=== PATIENT | male | born 1935 | race Caucasian/White ===

== ENCOUNTER → 2020-08-12 11:01 | Outpatient (BNVA) | payer MEDICARE, SELFPAY | PROVIDERS: PCP Internal Medicine; Visit Provider Hospitalist | DX: J44.9 Chronic obstructive pulmonary disease, unspecified (principal); G47.33 Obstructive sleep apnea (adult) (pediatric); J96.10 Chronic respiratory failure, unspecified whether with hypoxia or hypercapnia; Z79.82 Long term (current) use of aspirin; Z87.891 Personal history of nicotine dependence | CPT/HCPCS: 99212 ==

== ENCOUNTER → 2021-03-01 14:10 | Outpatient (BNVA) | payer MEDICARE, SELFPAY | PROVIDERS: PCP Internal Medicine; Visit Provider Hospitalist | DX: G47.33 Obstructive sleep apnea (adult) (pediatric) (principal); I50.9 Heart failure, unspecified; J96.10 Chronic respiratory failure, unspecified whether with hypoxia or hypercapnia; J41.0 Simple chronic bronchitis; Z87.891 Personal history of nicotine dependence; Z88.5 Allergy status to narcotic agent; Z88.8 Allergy status to other drugs, medicaments and biological substances; Z91.041 Radiographic dye allergy status; Z79.84 Long term (current) use of oral hypoglycemic drugs; Z99.89 Dependence on other enabling machines and devices; Z99.81 Dependence on supplemental oxygen; Z79.899 Other long term (current) drug therapy | CPT/HCPCS: 99212 ==

== ENCOUNTER → 2022-03-02 10:55 | Outpatient (BNVA) | payer MEDICARE, SELFPAY | PROVIDERS: PCP Internal Medicine; Visit Provider Hospitalist | DX: J41.0 Simple chronic bronchitis (principal); J96.11 Chronic respiratory failure with hypoxia; G47.33 Obstructive sleep apnea (adult) (pediatric); Z79.899 Other long term (current) drug therapy | CPT/HCPCS: 94618; 99212 ==

== ENCOUNTER → 2022-10-09 11:14 | Outpatient (BNVA) | payer MEDICARE, SELFPAY | PROVIDERS: PCP Internal Medicine; Visit Provider Hospitalist | DX: J96.10 Chronic respiratory failure, unspecified whether with hypoxia or hypercapnia (principal); J41.0 Simple chronic bronchitis; I50.9 Heart failure, unspecified; G47.39 Other sleep apnea; Z87.891 Personal history of nicotine dependence; Z99.81 Dependence on supplemental oxygen | CPT/HCPCS: 99212 ==

== ENCOUNTER → 2023-01-29 15:26 | Outpatient (BNVA) | payer MEDICARE, SELFPAY | PROVIDERS: PCP Internal Medicine; Visit Provider Hospitalist | DX: J96.11 Chronic respiratory failure with hypoxia (principal); J41.0 Simple chronic bronchitis | CPT/HCPCS: 99212 ==

== ENCOUNTER 2023-02-20 08:03 | Outpatient (REF) | payer MEDICARE, SELFPAY ==
--- NOTE | ~2023-02-20 | XR_ITS ---
EXAMINATION: XR SHOULDER, LEFT CLINICAL INFORMATION: Pain in left shoulder COMPARISON: None available. TECHNIQUE: Two views of the left shoulder. FINDINGS: No fracture or dislocation. There are mild degenerative changes in the visualized glenohumeral joint and acromioclavicular joints. Soft tissues unremarkable. Cardiac pacemaker, median sternotomy wires and CABG clips visualized XR/XR shoulder LT min 2V IMPRESSION: Mild degenerative changes in the left shoulder.
== END 2023-02-20 08:04 | disposition home or self-care (01) ==
LOC: HO.HOSX 08:03
PROVIDERS: Visit Provider Orthopaedic Surgery
DX: M75.42 Impingement syndrome of left shoulder (principal)
CPT/HCPCS: 20610; 73030; 99212; J3301

== ENCOUNTER 2023-02-20 13:04 | Outpatient (AMB) | payer MEDICARE, SELFPAY ==
[2023-02-20 13:23] VITALS: BMI 25.1
--- NOTE | 2023-02-20 13:23 | A.OFFVIS_ITS ---
Intake Vital Signs 02/20/23 13:23 Height 5 ft 11 in Weight 180 lb BMI 25.1 Intake Visit Reasons: OV-left should injection Intake Note: Stu 87 year old male presents today as a new patient to re-establish care with Dr. Fischer for an evaluation of left shoulder. Patient reports injection about 3- 4 years ago provided relief until early August 2022. He has intermittent pain that has been getting worse. He would like to discuss repeat of injection. The patient states that he was seen by a shoulder replacement specialist and told that because of his age he is not a candidate for shoulder replacement surgery. He has tried Tylenol and anti-inflammatory medicines which gave him minimal relief. He has also done physical therapy which aggravated his pain. Allergies codeine Allergy (Severe, Verified 02/20/23 13:31) Shakes morphine Allergy (Severe, Verified 02/20/23 13:31) Shakes tetracycline Allergy (Severe, Verified 02/20/23 13:31) Hallucinations Contrast Dye Allergy (Severe, Uncoded 02/20/23 13:31) Itching Erythromycin Allergy (Severe, Uncoded 02/20/23 13:31) Rash and Hives Medication List - Last Reconciled 02/20/23 by Raymond Fischer MD ascorbic acid (vitamin C) mg PO aspirin 81 mg PO DAILY atorvastatin 80 mg PO DAILY Breo Ellipta 100-25 mcg/dose (fluticasone furoate-vilanterol) 1 ea inhalation DAILY NS carvedilol 25 mg PO BID cholecalciferol (vitamin D3) 25 mcg PO DAILY coenzyme Q10 10 mg PO TID cyanocobalamin (vitamin B-12) 2,500 mcg PO DAILY dapagliflozin propanediol (Farxiga) 10 mg PO DAILY fluticasone propionate 50 mcg/actuation 0 mcg intranasal folic acid 1 mg PO DAILY gabapentin mg PO ketoconazole 2% 1 appl topical 2XW loratadine 10 mg PO DAILY 90 days metformin 500 mg PO DAILY montelukast 10 mg PO QPM naltrexone 50 mg PO DAILY nitroglycerin mg sublingual omega-3 fatty acids (Fish Oil Concentrate) 1,000 mg PO DAILY potassium chloride ER 10 mEq PO DAILY rivaroxaban (Xarelto) 20 mg PO DAILY sacubitril-valsartan 49-51 mg (Entresto) 1 tab PO BID spironolactone 25 mg PO DAILY sulfasalazine PO torsemide 20 mg PO BID PFSH Medical History Chronic respiratory failure COPD (chronic obstructive pulmonary disease) COVID-19 ARLEEN treated with BiPAP Social History Patient Tobacco Use Status: Former Tobacco user Tobacco use type: Cigarette Years Smoked: 25 years ago Physical Exam Vital Signs: BMI result Body Mass Index 25.1 Const Other: Well-nourished well-developed very friendly male awake alert and oriented x3 in no acute distress Extrem Other: Bilateral upper extremity examination shows good capillary refill, no skin l esions noted, normal sensation light touch Left shoulder examination shows slightly decreased range of motion when compared to his right shoulder, 3/5 strength with supraspinatus testing, positive imp ingement signs, no instability Office Procedures Joint Injection/Drain Joint Injection/Drain Primary Site: left shoulder Prep: site was prepped using aseptic technique Injected: 40 mg of, Kenalog and 1% plain lidocaine Procedure: The patient tolerated the procedure well Coding 44147 - Large joint Procedure code (CPT) selection complete Results Reviewed Results Reviewed: 02/20/23 13:49 Lidocaine HCl 2 % MPF [Xylocaine 2 % MPF] 5 ml .ROUTE .STK-MED ONE Triamcinolone Acetonide [Kenalog-40] 40 mg .ROUTE .STK-MED ONE X-rays of the patient's left shoulder taken today show severe acromioclavicular joint narrowing, a type 2 acromion, no acute bony abnormalities. Assessment & Plan Assessment & Plan (1) Impingement syndrome of left shoulder: Code(s): M75.42 - Impingement syndrome of left shoulder Plan: Mr. Carranza presents with left shoulder pain and weakness due to impingement syndrome and chronic rotator cuff tearing. I had a lengthy discussion with the patient regarding the treatment options. The risks and benefits of a left shoulder cortisone injection were discussed at length with the patient. The patient wished to proceed. He tolerated the left shoulder injection well. He will continue with his range of motion exercises to prevent stiffness. The do's and don'ts of lifting were discussed at length with the patient. He will follow up with me on an as-needed basis should his symptoms not plateau at an unacceptable level over the next few months. Feel free to call me at any time should questions regarding his orthopedic management arise. Thank you very much for asking me to see this very friendly gentleman. I spent 22 minutes in reviewing the patient's records and imaging studies, seeing the patient and documenting in the medical record. Orders: Orders XR shoulder LT min 2V Today M25.512 - Pain in left shoulder AMB Joint Injection/Aspiration Today M75.42 - Impingement syndrome of left shoulder Coding Level of Care Code Est Pt Level 2 (07386) Diagnoses Impingement syndrome of left shoulder M75.42 CPT Codes Coding - 95779 Large joint: 79661 - Large joint ([id number])
== END 2023-02-20 14:10 | disposition home or self-care (01) ==
PROVIDERS: PCP Internal Medicine; Visit Provider Orthopaedic Surgery
DX: M75.42 Impingement syndrome of left shoulder (principal)
CPT/HCPCS: 20610; 99214

== ENCOUNTER 2023-04-17 11:15 | Outpatient (AMB) | payer MEDICARE, SELFPAY ==
--- NOTE | 2023-04-17 11:22 | A.OFFVIS_ITS ---
Intake Vital Signs 04/17/23 11:23 Height 5 ft 11 in Weight 185 lb BMI 25.8 Pulse 92 Pulse Source Pulse Oximeter Pulse Oximetry (%) 96 Oxygen Delivery Method Room Air Intake Visit Reasons: COPD Telehealth Director Required: No Allergies codeine Allergy (Severe, Verified 04/17/23 11:26) Shakes morphine Allergy (Severe, Verified 04/17/23 11:26) Shakes tetracycline Allergy (Severe, Verified 04/17/23 11:26) Hallucinations Contrast Dye Allergy (Severe, Uncoded 04/17/23 11:26) Itching Erythromycin Allergy (Severe, Uncoded 04/17/23 11:26) Rash and Hives HPI HPI Comments History of Present Illness Details The patient is a 87-year-old gentleman known congestive heart failure and also complex sleep apnea. He has been responding well to the oxygen. He feels much improved now with decreased shortness of breath with activity. He also had pulmonary function studies recently that we reviewed in the office. It appears the patient does not have any obstructive nor restrictive ventilatory defect, although, he has an isolated moderate diffusion impairment. This is likely related to his underlying pulmonary vascular disease. The patient does have evidence of chronic bronchitis with significant mucus production. I do feel that he will do well on inhaled cortical steroid at this time. He is also scheduled to undergo a sleep study to further address his issues with complex sleep apnea. It did demonstrate that he has severe complex sleep apnea. The recommendation was for him to start BiPAP therapy. 03/02/2022 the patient is here for a pulmonary follow-up visit. He has noticed increasing dyspnea on exertion. Moderate severity. Typically with activity. He does uses rescue inhaler multiple times a day because of the shortness of breath. He continues with respiratory therapy. During the office visit we did taken for 6 minute walk test. The patient did desaturate down to 88% only after a few minutes. He was placed on a conserving device initially on 2 L pulse maintain a pulse ox of 90% and on 3 L pulse to maintain a pulse ox of 93%. The patient needs portable oxygen. Will make sure to request this from the [employer]. He already uses oxygen at nighttime. 04/17/2023 the patient is here for a pulmonary follow-up visit. Overall the patient is doing better. The Breo inhaler has been helping. Does not use it regularly. In addition to this he feels significant improvement using the oxygen. The oxygen therapy has been affecting beneficial. And is treating his underlying respiratory failure due to his COPD. The patient does have small tanks that he can take with him when he is going outside of the home for better portability. In addition to that he does have a concentrator in the home that uses specially with activity and also with sleep. Therefore he is to continue to use the oxygen as prescribed. Denies any chest discomfort or cough. Will no need for any additional testing at this time. Will plan to follow-up in 6 months. However, if he develops any new or concerning symptoms prior to that he is to call the office immediately for an earlier evaluation. [facility] Medical History Chronic respiratory failure COPD (chronic obstructive pulmonary disease) COVID-19 ARLEEN treated with BiPAP Social History Patient Tobacco Use Status: Former Tobacco user Tobacco use type: Cigarette Years Smoked: 25 years ago Review of Systems Const Denies fever(s) and Denies night sweats ENT Denies change in voice, Denies lip swelling, Denies mouth pain, Reports nasal congestion, Reports nasal discharge and Denies tongue swelling Card Denies chest pain and Reports dyspnea on exertion Resp Reports cough and Reports dyspnea on exertion GI Denies abdominal pain Musc Denies no additional complaints and Reports abnormal gait Neuro Reports abnormal gait and Reports burning sensations Psych Denies no additional complaints Meir/Lymph Denies easy bleeding and Denies lymphadenopathy Aller/Immun Denies lip swelling and Denies tongue swelling Physical Exam Vital Signs: Last Vital Signs Pulse 92 04/17/23 11:23 Pulse Ox 96 04/17/23 11:23 Oxygen Delivery Method Room Air 04/17/23 11:23 BMI result Body Mass Index 25.8 Const General: alert Neck Neck: Yes normal visual inspection, Yes full ROM and Yes no lymphadenopathy Chest Chest palpation & inspection: normal inspection of the chest Resp Auscultation: diminished lung sounds Cardio Rate: regular rate Rhythm: regular rhythm Heart sounds: S1 normal heart sound present and S2 normal heart sound present GI Palpation (GI): Soft to palpation and nontender Auscultation: normal bowel sounds Skin General skin exam: rashes and/or lesions noted Assessment & Plan Assessment & Plan (1) Chronic respiratory failure: Code(s): J96.10 - Chronic respiratory failure, unspecified whether with hypoxia or hypercapnia Qualifiers: Respiratory failure complication: hypoxia Qualified Code(s): J96.11 - Chronic respiratory failure with hypoxia (2) COPD (chronic obstructive pulmonary disease): Code(s): J44.9 - Chronic obstructive pulmonary disease, unspecified Qualifiers: COPD type: chronic bronchitis Chronic bronchitis type: simple Qualified Code(s): J41.0 - Simple chronic bronchitis Plan Continue Breo daily continue Loratidine/Singulair continue oxygen with activity and also with sleep. The oxygen therapy has been effective and beneficial. CXR Follow-up in 8-12 months or sooner if worsening symptoms develop Coding Level of Care Code Est Pt Level 4 (32693) Diagnoses Chronic respiratory failure J96.11 Respiratory failure complication: hypoxia COPD (chronic obstructive pulmonary disease) J41.0 COPD type: chronic bronchitis Chronic bronchitis type: simple Time Spent (min) 17
[2023-04-17 11:23] VITALS: PULSE 92; O2SAT 96; BMI 25.8
== END 2023-04-17 11:45 | disposition home or self-care (01) ==
PROVIDERS: PCP Internal Medicine; Visit Provider Hospitalist
DX: J96.11 Chronic respiratory failure with hypoxia (principal); J41.0 Simple chronic bronchitis
CPT/HCPCS: 99214

== ENCOUNTER → 2023-04-17 11:15 | Outpatient (BNVA) | payer MEDICARE, SELFPAY | PROVIDERS: PCP Internal Medicine; Visit Provider Hospitalist | DX: J41.0 Simple chronic bronchitis (principal); J96.11 Chronic respiratory failure with hypoxia; Z79.899 Other long term (current) drug therapy | CPT/HCPCS: 99212 ==

== ENCOUNTER 2023-05-24 13:17 | Outpatient (AMB) | payer MEDICARE, SELFPAY ==
--- NOTE | 2023-05-24 13:29 | MHC.OFFVIS ---
Intake Vital Signs 05/24/23 13:32 Height 5 ft 11 in Weight 185 lb BMI 25.8 Intake Visit Reasons: OV-left should injection-last injection 02/20/23 Intake Note: Stu 88 yr old male presents today with complaints of bilateral shoulder pains. He describes his pains as achy in nature. Most of the pain is along the lateral aspects of his shoulders. He also reports chronic weakness in his shoulders. The patient wishes to hold off on total shoulder replacement surgery for as long as possible. He has tried Tylenol and anti-inflammatory medicines which gave him minimal relief. Allergies codeine Allergy (Severe, Verified 05/24/23 13:33) Shakes morphine Allergy (Severe, Verified 05/24/23 13:33) Shakes tetracycline Allergy (Severe, Verified 05/24/23 13:33) Hallucinations Contrast Dye Allergy (Severe, Uncoded 05/24/23 13:33) Itching Erythromycin Allergy (Severe, Uncoded 05/24/23 13:33) Rash and Hives PFS Medical History Chronic respiratory failure COPD (chronic obstructive pulmonary disease) COVID-19 ARLEEN treated with BiPAP Social History Patient Tobacco Use Status: Former Tobacco user Tobacco use type: Cigarette Years Smoked: 25 years ago Physical Exam Vital Signs: BMI result Body Mass Index 25.8 Const Other: Well-nourished well-developed very friendly male awake alert and oriented x3 in no acute distress Extrem Other: Bilateral upper extremity examination shows good capillary refill, no skin lesions noted, normal sensation light touch Bilateral shoulder examination shows forward flexion to 160 degrees, external rotation 40 degrees, internal rotation to his back pockets, 3/5 strength with supraspinatus testing, positive impingement signs, no instability Office Procedures Joint Injection/Drain Joint Injection/Drain Primary Site: left shoulder Prep: site was prepped using aseptic technique Injected: 40 mg of, Kenalog and 1% plain lidocaine Procedure: The patient tolerated the procedure well Coding 57641 - Large joint Procedure code (CPT) selection complete Joint Injection/Drain Joint Injection/Drain Primary Site: right shoulder Prep: site was prepped using aseptic technique Injected: 40 mg of, Kenalog and 1% plain lidocaine Procedure: The patient tolerated the procedure well Coding 93190 - Large joint Procedure code (CPT) selection complete Results Reviewed Results Reviewed: 05/24/23 13:19 Lidocaine HCl 2 % MPF [Xylocaine 2 % MPF] 5 ml .ROUTE .STK-MED ONE Triamcinolone Acetonide [Kenalog-40] 40 mg .ROUTE .STK-MED ONE 05/24/23 13:22 Lidocaine HCl 2 % MPF [Xylocaine 2 % MPF] 5 ml .ROUTE .STK-MED ONE 05/24/23 13:23 Triamcinolone Acetonide [Kenalog-40] 40 mg .ROUTE .STK-MED ONE Assessment & Plan Assessment & Plan (1) Impingement syndrome of left shoulder: Code(s): M75.42 - Impingement syndrome of left shoulder Plan: Mr. Carranza presents with bilateral shoulder pains and weakness due to impingement syndrome and chronic rotator cuff tearing. I had a lengthy discussion with the patient regarding the treatment options. If he wishes to hold off on surgery for as long as possible. I agree with this plan. The risks and benefits of bilateral shoulder cortisone injections were discussed at length with the patient. The patient wished to proceed. He tolerated the injections well. He will continue with his home stretching program to prevent stiffness. He will follow up with me on an as-needed basis should his symptoms not plateau at an unacceptable level over the next few months. Feel free to call me at any time should questions regarding his orthopedic management arise. I spent 22 minutes in reviewing the patient's records and imaging studies, seeing the patient and documenting in the medical record. (2) Impingement of right shoulder: Code(s): M25.811 - Other specified joint disorders, right shoulder Orders: Orders AMB Joint Injection/Aspiration Today M75.42 - Impingement syndrome of left shoulder AMB Joint Injection/Aspiration Today M25.811 - Other specified joint disorders, right shoulder Coding Level of Care Code Est Pt Level 2 (56107) Diagnoses Impingement syndrome of left shoulder M75.42 Impingement of right shoulder M25.811 CPT Codes Coding - Large joint: 34129 - Large joint ([id number]) Coding - Large joint: 35775 - Large joint ([id number])
[2023-05-24 13:32] VITALS: BMI 25.8
== END 2023-05-24 13:42 | disposition home or self-care (01) ==
PROVIDERS: PCP Internal Medicine; Visit Provider Orthopaedic Surgery
DX: M75.42 Impingement syndrome of left shoulder (principal); M25.811 Other specified joint disorders, right shoulder
CPT/HCPCS: 20610; 99213

== ENCOUNTER → 2023-05-24 13:17 | Outpatient (BNVA) | payer MEDICARE, SELFPAY | PROVIDERS: PCP Internal Medicine; Visit Provider Orthopaedic Surgery | DX: M75.42 Impingement syndrome of left shoulder (principal); M25.811 Other specified joint disorders, right shoulder | CPT/HCPCS: 20610; 99212; J3301 ==

== ENCOUNTER 2023-08-23 11:22 | Outpatient (AMB) | payer MEDICARE, SELFPAY ==
[2023-08-23 11:23] VITALS: BMI 25.8
--- NOTE | 2023-08-23 11:23 | A.OFFVIS_ITS ---
Intake Vital Signs 08/23/23 11:23 Height 5 ft 11 in Weight 185 lb BMI 25.8 Intake Visit Reasons: OV-left should injection-last injection 05/24/23 Intake Note: Stu is a 88 year old Male who presents for a follow up after an injections bilateral shoulder. He states that he got temporary relief from the injections. The injections have worn off. He describes his pains as achy in nature. He denies any fevers or chills. He continues with his range of motion exercises. He would like to hold off on shoulder replacement surgery for as long as possible. Allergies codeine Allergy (Severe, Verified 08/23/23 11:24) Shakes morphine Allergy (Severe, Verified 08/23/23 11:24) Shakes tetracycline Allergy (Severe, Verified 08/23/23 11:24) Hallucinations Contrast Dye Allergy (Severe, Uncoded 05/24/23 13:33) Itching Erythromycin Allergy (Severe, Uncoded 05/24/23 13:33) Rash and Hives [facility] Medical History Chronic respiratory failure ARLEEN treated with BiPAP COVID-19 COPD (chronic obstructive pulmonary disease) Social History Patient Tobacco Use Status: Former Tobacco user Tobacco use type: Cigarette Years Smoked: 25 years ago Physical Exam Vital Signs: BMI result Body Mass Index 25.8 Const Other: Well-nourished well-developed very friendly male awake alert and oriented x3 in no acute distress Extrem Other: Bilateral upper extremity examination shows good capillary refill, no skin lesions noted, normal sensation light touch Bilateral shoulder examination shows forward flexion to 160 degrees, external rotation to 40 degrees, internal rotation to his back pocket, 3/5 strength with supraspinatus testing, positive impingement signs, no instability Office Procedures Joint Injection/Drain Joint Injection/Drain Primary Site: left shoulder Prep: site was prepped using aseptic technique Injected: 40 mg of, DepoMedrol and 1% plain lidocaine Procedure: The patient tolerated the procedure well Coding 10425 - Large joint Procedure code (CPT) selection complete Joint Injection/Drain Joint Injection/Drain Primary Site: right shoulder Prep: site was prepped using aseptic technique Injected: 40 mg of, DepoMedrol and 1% plain lidocaine Procedure: The patient tolerated the procedure well Coding 43865 - Large joint Procedure code (CPT) selection complete Assessment & Plan Assessment & Plan (1) Impingement syndrome of left shoulder: Code(s): M75.42 - Impingement syndrome of left shoulder (2) Impingement of right shoulder: Code(s): M25.811 - Other specified joint disorders, right shoulder Plan Mr. Carranza presents with bilateral shoulder pains and weakness due to chronic rotator cuff tears. I had a lengthy discussion with the patient regarding the treatment options. The risks and benefits of bilateral shoulder cortisone injections were discussed at length with the patient. The patient wished to proceed. Tolerated the injections well. He will continue with his home stretching program to prevent stiffness. The patient also has chronic low back pain. He is not able to get an MRI because he has a pacemaker. I did refer him to the pain management group here at [facility]. He will contact me prior to his follow-up appointment in 3 months should any questions or concerns arise. Feel free to call me at any time should questions regarding his orthopedic management arise. I spent 22 minutes in reviewing the patient's records and imaging studies, seeing the patient and documenting in the medical record. Orders: Orders AMB Joint Injection/Aspiration Today M75.42 - Impingement syndrome of left shoulder AMB Joint Injection/Aspiration Today M25.811 - Other specified joint disorders, right shoulder Referrals Pain Management Referral M54.50 - Low back pain, unspecified Coding Level of Care Code Est Pt Level 2 (53374) Diagnoses Impingement syndrome of left shoulder M75.42 Impingement of right shoulder M25.811 CPT Codes Coding - 21797 Large joint: 17976 - Large joint ([id number]) Coding - 93450 Large joint: 92363 - Large joint ([id number])
== END 2023-08-23 12:26 | disposition home or self-care (01) ==
PROVIDERS: PCP Internal Medicine; Visit Provider Orthopaedic Surgery
DX: M75.42 Impingement syndrome of left shoulder (principal); M25.811 Other specified joint disorders, right shoulder
CPT/HCPCS: 20610

== ENCOUNTER → 2023-08-23 11:22 | Outpatient (BNVA) | payer MEDICARE, SELFPAY | PROVIDERS: PCP Internal Medicine; Visit Provider Orthopaedic Surgery | DX: M75.42 Impingement syndrome of left shoulder (principal); M25.811 Other specified joint disorders, right shoulder | CPT/HCPCS: 20610; J1020 ==

== ENCOUNTER 2023-10-08 09:37 | Outpatient (AMB) | payer MEDICARE, SELFPAY ==
--- NOTE | 2023-10-08 09:41 | MHC.OFFVIS ---
Intake Vital Signs 10/08/23 10:09 Height 5 ft 11 in Weight 185 lb BMI 25.8 BP 168/88 H Blood Pressure Location Lt brachial Position Sitting Respiration 12 Pulse 82 Pulse Source Pulse Oximeter Pulse Oximetry (%) 96 Oxygen Delivery Method Room Air Intake Visit Reasons: Low Back Pain, Unspecified/lvm Allergies codeine Allergy (Severe, Verified 10/08/23 10:11) Shakes morphine Allergy (Severe, Verified 10/08/23 10:11) Shakes tetracycline Allergy (Severe, Verified 10/08/23 10:11) Hallucinations Contrast Dye Allergy (Severe, Uncoded 10/08/23 10:11) Itching Erythromycin Allergy (Severe, Uncoded 10/08/23 10:11) Rash and Hives Medication List - Last Reconciled 10/08/23 by Emilie Hewitt LPN ascorbic acid (vitamin C) mg PO aspirin 81 mg PO DAILY atorvastatin 80 mg PO DAILY Breo Ellipta 100-25 mcg/dose (fluticasone furoate-vilanterol) 1 ea inhalation DAILY NS carvedilol 25 mg PO BID cholecalciferol (vitamin D3) 25 mcg PO DAILY coenzyme Q10 10 mg PO TID cyanocobalamin (vitamin B-12) 2,500 mcg PO DAILY dapagliflozin propanediol (Farxiga) 10 mg PO DAILY gabapentin 300 mg PO Q8H ketoconazole 2% 1 appl topical 2XW naltrexone 50 mg PO DAILY nitroglycerin mg sublingual omega-3 fatty acids (Fish Oil Concentrate) 1,000 mg PO DAILY potassium chloride ER 10 mEq PO DAILY rivaroxaban (Xarelto) 20 mg PO DAILY sacubitril-valsartan 49-51 mg (Entresto) 1 tab PO BID spironolactone 25 mg PO DAILY sulfasalazine 0.5 grams PO DAILY torsemide 20 mg PO BID HPI Low Back Pain, Unspecified/lvm HPI Details 88-year-old male who presents today to the office for an evaluation of back pain. He was referred by Dr. Fischer for back and leg pain that started about two years ago, and the pain has been going on for about three years. He attributes the symptoms to an old injury to his lower back, as well as diabetic neuropathy and burning symptoms in the feet. He states that his left leg is worse than right side. The pain is described as 9?10/10 in intensity. The pain symptoms are worse in the morning and afternoon, when they are about 10/10 in intensity. It is an aching, burning sensation in this lower back and a numbing burning sensation in the bilateral feet. He denies any neck pain or weakness in his hand or leg. He has been experiencing a loss of balance issue during ambulation. He has been using a walker. He is unable to sleep normally or do his daily activities. The symptoms have been progressively worsening. He has exhausted physical therapy, chiropractic manipulation, and acupuncture, as well as preferable and homeopathic supplements. He has been taking like 3?4 tablets of gabapentin every day. He denies any history of back surgery in the past. He has been receiving cortisone shot for his shoulder pain. 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 He has a ?woody feeling? in his left foot and feels like he has to drag it in the morning when he first gets up. He had a pacemaker placed in 2009 as well as cardiac stents, followed by a CABG in 2018. He is retired. [facility] Medical History Chronic respiratory failure ARLEEN treated with BiPAP COVID-19 COPD (chronic obstructive pulmonary disease) Social History Patient Tobacco Use Status: Former Tobacco user Tobacco use type: Cigarette Years Smoked: 25 years ago Review of Systems Const All systems reviewed & are unremarkable except as noted in HPI and below Physical Exam Vital Signs: Last Vital Signs Pulse 82 10/08/23 10:09 Resp 12 10/08/23 10:09 BP 168/88 H 10/08/23 10:09 Pulse Ox 96 10/08/23 10:09 Oxygen Delivery Method Room Air 10/08/23 10:09 BMI result Body Mass Index 25.8 General: Appears afebrile. Alert and oriented. Mood and affect appropriate. Follows and participates in conversation appropriately. Respiratory effort is unlabored. Able to transition from sit to stand unassisted. Ambulates with bilaterally normal heel strike and toe off. There is no cracks or ulcers skin on his bilateral feet. He is unsteady on his legs when he stands on his toes. Subjective weakness in arms against resistance. Results Reviewed Results Reviewed: No imaging is available for review. Assessment & Plan Assessment & Plan (1) Lumbar spinal stenosis: Code(s): M48.061 - Spinal stenosis, lumbar region without neurogenic claudication (2) Low back pain: Code(s): M54.50 - Low back pain, unspecified Plan We discussed starting with topical Qutenza patches for his leg pain secondary to diabetic neuropathy prior to trying any surgical interventions. The patient is in agreement with this plan. Informed the patient that insurance approval is required. We will file a PA for approval and keep him updated. Once we get the approval, we will schedule the appointment. For the arm and leg weakness as well as back pain, I ordered CT scans of the cervical and lumbar spines for further evaluation. If his images show severe spinal stenosis, we can consider surgical decompression. Patient is unable to get MRI scan due to pacemaker presence. Scribed for Dr. Ayala by Perry Franz, biomedical scientist, on 10/08/2023. I, Dr. Ayala, have personally reviewed and agree with the information entered by the scribe. Orders: Orders CT lumbar spine wo IV con 10/08/23 M48.061 - Spinal stenosis, lumbar region without neurogenic claudication, M54.50 - Low back pain, unspecified CT cervical spine wo IV con 10/08/23 M48.02 - Spinal stenosis, cervical region Coding Level of Care Code New Pt Level 4 (05077) Diagnoses Lumbar spinal stenosis M48.061 Low back pain M54.50
[2023-10-08 10:09] VITALS: BP 168/88; PULSE 82; RESP 12; O2SAT 96; BMI 25.8
== END 2023-10-08 10:38 | disposition home or self-care (01) ==
PROVIDERS: PCP Internal Medicine; Referring Provider Orthopaedic Surgery; Visit Provider Internal Medicine
DX: M48.061 Spinal stenosis, lumbar region without neurogenic claudication (principal); M54.50 Low back pain, unspecified
CPT/HCPCS: 99204

== ENCOUNTER → 2023-10-08 09:37 | Outpatient (BNVA) | payer MEDICARE, SELFPAY | PROVIDERS: PCP Internal Medicine; Visit Provider Internal Medicine | DX: M48.061 Spinal stenosis, lumbar region without neurogenic claudication (principal); M54.50 Low back pain, unspecified | CPT/HCPCS: 99202 ==

== ENCOUNTER 2023-10-16 15:15 | Outpatient (AMB) | payer MEDICARE, SELFPAY ==
[2023-10-16 15:21] VITALS: PULSE 92; O2SAT 97; BMI 25.4
--- NOTE | 2023-10-16 15:21 | A.OFFVIS_ITS ---
Intake Vital Signs 10/16/23 15:21 Height 5 ft 11 in Weight 182 lb BMI 25.4 Pulse 92 Pulse Source Pulse Oximeter Pulse Oximetry (%) 97 Oxygen Delivery Method Room Air Intake Visit Reasons: Needs same day chest x ray [employer] Worker Required: No Allergies codeine Allergy (Severe, Verified 10/16/23 15:23) Shakes morphine Allergy (Severe, Verified 10/16/23 15:23) Shakes tetracycline Allergy (Severe, Verified 10/16/23 15:23) Hallucinations Contrast Dye Allergy (Severe, Uncoded 10/16/23 15:23) Itching Erythromycin Allergy (Severe, Uncoded 10/16/23 15:23) Rash and Hives HPI HPI Comments History of Present Illness Details The patient is a 88-year-old gentleman known congestive heart failure and also complex sleep apnea. He has been responding well to the oxygen. He feels much improved now with decreased shortness of breath with activity. He also had pulmonary function studies recently that we reviewed in the office. It appears the patient does not have any obstructive nor restrictive ventilatory defect, although, he has an isolated moderate diffusion impairment. This is likely related to his underlying pulmonary vascular disease. The patient does have evidence of chronic bronchitis with significant mucus production. I do feel that he will do well on inhaled cortical steroid at this time. He is also scheduled to undergo a sleep study to further address his issues with complex sleep apnea. It did demonstrate that he has severe complex sleep apnea. The recommendation was for him to start BiPAP therapy. 03/02/2022 the patient is here for a pulmonary follow-up visit. He has noticed increasing dyspnea on exertion. Moderate severity. Typically with activity. He does uses rescue inhaler multiple times a day because of the shortness of breath. He continues with respiratory therapy. During the office visit we did taken for 6 minute walk test. The patient did desaturate down to 88% only after a few minutes. He was placed on a conserving device initially on 2 L pulse maintain a pulse ox of 90% and on 3 L pulse to maintain a pulse ox of 93%. The patient needs portable oxygen. Will make sure to request this from the [employer]. He already uses oxygen at nighttime. 10/17/2023 the patient is here for a pulmonary follow-up visit. Overall the patient is doing better. The Breo inhaler has been helping. Does not use it regularly. In addition to this he feels significant improvement using the oxygen. The oxygen therapy has been affecting beneficial. And is treating his underlying respiratory failure due to his COPD. The patient does have small tanks that he can take with him when he is going outside of the home for better portability. In addition to that he does have a concentrator in the home that uses specially with activity and also with sleep. Therefore he is to continue to use the oxygen as prescribed. Denies any chest discomfort or cough. Will no need for any additional testing at this time. Will plan to follow-up in 6 months. However, if he develops any new or concerning symptoms prior to that he is to call the office immediately for an earlier evaluation. [facility] Medical History Chronic respiratory failure ARLEEN treated with BiPAP COVID-19 COPD (chronic obstructive pulmonary disease) Social History Patient Tobacco Use Status: Former Tobacco user Tobacco use type: Cigarette Years Smoked: 25 years ago Review of Systems Const Denies fever(s) and Denies night sweats ENT Denies change in voice, Denies lip swelling, Denies mouth pain, Reports nasal congestion, Reports nasal discharge and Denies tongue swelling Card Denies chest pain and Reports dyspnea on exertion Resp Reports cough and Reports dyspnea on exertion GI Denies abdominal pain Musc Denies no additional complaints and Reports abnormal gait Neuro Reports abnormal gait and Reports burning sensations Psych Denies no additional complaints Meir/Lymph Denies easy bleeding and Denies lymphadenopathy Aller/Immun Denies lip swelling and Denies tongue swelling Physical Exam Vital Signs: Last Vital Signs Pulse 92 10/16/23 15:21 Pulse Ox 97 10/16/23 15:21 Oxygen Delivery Method Room Air 10/16/23 15:21 BMI result Body Mass Index 25.4 Const General: alert Neck Neck: Yes normal visual inspection, Yes full ROM and Yes no lymphadenopathy Chest Chest palpation & inspection: normal inspection of the chest Resp Auscultation: diminished lung sounds Cardio Rate: regular rate Rhythm: regular rhythm Heart sounds: S1 normal heart sound present and S2 normal heart sound present GI Palpation (GI): Soft to palpation and nontender Auscultation: normal bowel sounds Skin General skin exam: rashes and/or lesions noted Assessment & Plan Assessment & Plan (1) Chronic respiratory failure: Code(s): J96.10 - Chronic respiratory failure, unspecified whether with hypoxia or hypercapnia Qualifiers: Respiratory failure complication: hypoxia Qualified Code(s): J96.11 - Chronic respiratory failure with hypoxia (2) COPD (chronic obstructive pulmonary disease): Code(s): J44.9 - Chronic obstructive pulmonary disease, unspecified Qualifiers: COPD type: chronic bronchitis Chronic bronchitis type: simple Qualified Code(s): J41.0 - Simple chronic bronchitis Plan Continue Breo daily continue Loratidine/Singulair continue oxygen with activity and also with sleep. The oxygen therapy has been effective and beneficial. CXR Follow-up in 8-12 months or sooner if worsening symptoms develop Orders: Orders XR chest 2V 10/16/23 J44.9 - Chronic obstructive pulmonary disease, unspecified Coding Level of Care Code Est Pt Level 4 (50954) Diagnoses Chronic respiratory failure with hypoxia J96.11 Respiratory failure complication: hypoxia Simple chronic bronchitis J41.0 COPD type: chronic bronchitis Chronic bronchitis type: simple Time Spent (min) 17
== END 2023-10-16 15:46 | disposition home or self-care (01) ==
PROVIDERS: PCP Internal Medicine; Visit Provider Hospitalist
DX: J96.11 Chronic respiratory failure with hypoxia (principal); J41.0 Simple chronic bronchitis
CPT/HCPCS: 99214

== ENCOUNTER → 2023-10-16 15:15 | Outpatient (BNVA) | payer MEDICARE, SELFPAY | PROVIDERS: PCP Internal Medicine; Visit Provider Hospitalist | DX: J96.11 Chronic respiratory failure with hypoxia (principal); J41.0 Simple chronic bronchitis | CPT/HCPCS: 99212 ==

== ENCOUNTER 2023-11-22 11:03 | Outpatient (AMB) | payer MEDICARE, SELFPAY ==
[2023-11-22 11:31] VITALS: BMI 25.4
--- NOTE | 2023-11-22 11:31 | MHC.OFFVIS ---
Intake Vital Signs 11/22/23 11:31 Height 5 ft 11 in Weight 182 lb BMI 25.4 Intake Visit Reasons: OV-left should INJ 08/23/23 Intake Note: Stu is a 88 year old male who presents for a follow up of bilateral shoulder injections done on 08/23/2023. Patient reports his injections gave him good relief. His pains have returned. He describes his pains as sharp in nature. Most of the pain is along the lateral aspects of his shoulders. He has tried Tylenol and anti-inflammatory medicines which gave him minimal relief. He has also done physical therapy exercises which aggravated his pain. He wishes to hold off on surgery for as long as possible. Allergies codeine Allergy (Severe, Verified 11/22/23 11:35) Shakes morphine Allergy (Severe, Verified 11/22/23 11:35) Shakes tetracycline Allergy (Severe, Verified 11/22/23 11:35) Hallucinations Contrast Dye Allergy (Severe, Uncoded 10/16/23 15:23) Itching Erythromycin Allergy (Severe, Uncoded 10/16/23 15:23) Rash and Hives Medication List - Last Reconciled 11/23/23 by Raymond Fischer MD ascorbic acid (vitamin C) mg PO aspirin 81 mg PO DAILY atorvastatin 80 mg PO DAILY Breo Ellipta 100-25 mcg/dose (fluticasone furoate-vilanterol) 1 ea inhalation DAILY NS carvedilol 25 mg PO BID cholecalciferol (vitamin D3) 25 mcg PO DAILY coenzyme Q10 10 mg PO TID cyanocobalamin (vitamin B-12) 2,500 mcg PO DAILY dapagliflozin propanediol (Farxiga) 10 mg PO DAILY gabapentin 300 mg PO Q8H ketoconazole 2% 1 appl topical 2XW naltrexone 50 mg PO DAILY nitroglycerin mg sublingual omega-3 fatty acids (Fish Oil Concentrate) 1,000 mg PO DAILY potassium chloride ER 10 mEq PO DAILY rivaroxaban (Xarelto) 20 mg PO DAILY sacubitril-valsartan 49-51 mg (Entresto) 1 tab PO BID spironolactone 25 mg PO DAILY sulfasalazine 0.5 grams PO DAILY torsemide 20 mg PO BID PFSH Medical History Chronic respiratory failure ARLEEN treated with BiPAP COVID-19 COPD (chronic obstructive pulmonary disease) Social History Patient Tobacco Use Status: Former Tobacco user Tobacco use type: Cigarette Years Smoked: 25 years ago Physical Exam Vital Signs: BMI result Body Mass Index 25.4 Const Other: Well-nourished well-developed very friendly male awake alert and oriented x3 in no acute distress Extrem Other: Bilateral upper extremity examination shows good capillary refill, no skin lesions noted, normal sensation light touch Bilateral shoulder examination shows positive impingement signs, 3/5 strength with supraspinatus testing, no instability Office Procedures Joint Injection/Drain Joint Injection/Drain Primary Site: left shoulder Prep: site was prepped using aseptic technique Injected: 40 mg of, DepoMedrol and 1% plain lidocaine Procedure: The patient tolerated the procedure well Coding 04340 - Large joint Procedure code (CPT) selection complete Joint Injection/Drain Joint Injection/Drain Primary Site: right shoulder Prep: site was prepped using aseptic technique Injected: 40 mg of, DepoMedrol and 1% plain lidocaine Procedure: The patient tolerated the procedure well Coding 15103 - Large joint Procedure code (CPT) selection complete Assessment & Plan Assessment & Plan (1) Impingement syndrome of left shoulder: Code(s): M75.42 - Impingement syndrome of left shoulder (2) Impingement of right shoulder: Code(s): M25.811 - Other specified joint disorders, right shoulder Plan Mr. Carranza presents with bilateral shoulder pains and weakness due to chronic rotator cuff tearing. I had a lengthy discussion with the patient regarding the treatment options. Wishes to hold off on total shoulder replacement surgery for as long as possible. I agree with this plan. The risks and benefits of bilateral shoulder cortisone injections were discussed at length with the patient. The patient wished to proceed. He tolerated the injections well. He will continue with his home stretching program to prevent stiffness. He will follow up with me on an as-needed basis should his symptoms not plateau at an unacceptable level over the next few months. Feel free to call me at any time should questions regarding his orthopedic management arise. I spent 22 minutes in reviewing the patient's records and imaging studies, seeing the patient and documenting in the medical record. Orders: Orders AMB Joint Injection/Aspiration 11/22/23 M75.42 - Impingement syndrome of left shoulder AMB Joint Injection/Aspiration 11/22/23 M25.811 - Other specified joint disorders, right shoulder Coding Level of Care Code Est Pt Level 2 (95688) Diagnoses Impingement syndrome of left shoulder M75.42 Impingement of right shoulder M25.811 CPT Codes Coding - 35443 Large joint: 23333 - Large joint ([id number]) Coding - 19641 Large joint: 20330 - Large joint ([id number])
== END 2023-11-22 12:05 | disposition home or self-care (01) ==
PROVIDERS: PCP Internal Medicine; Visit Provider Orthopaedic Surgery
DX: M75.42 Impingement syndrome of left shoulder (principal); M25.811 Other specified joint disorders, right shoulder
CPT/HCPCS: 20610; 99214

== ENCOUNTER → 2023-11-22 11:03 | Outpatient (BNVA) | payer MEDICARE, SELFPAY | PROVIDERS: PCP Internal Medicine; Visit Provider Orthopaedic Surgery | DX: M75.42 Impingement syndrome of left shoulder (principal); M25.811 Other specified joint disorders, right shoulder | CPT/HCPCS: 20610; 99212; J1010; J1020 ==

== ENCOUNTER 2023-11-27 10:04 | Outpatient (REF) | payer MEDICARE, SELFPAY ==
--- NOTE | ~2023-11-27 | XR_ITS ---
EXAMINATION: XR CHEST CLINICAL INFORMATION: Chronic obstructive pulmonary disease. COMPARISON: None available. TECHNIQUE: 2 views of the chest were obtained. FINDINGS: There is no gross pneumothorax. Left subclavian approach pacer with leads projecting over right atrium, right ventricle and along posterior aspect of heart. Median sternotomy wires and mediastinal clips and postsurgical changes. Borderline enlarged cardiac silhouette. Degenerative changes in the thoracic spine. Mild superior and inferior endplate concavities of mid-thoracic vertebral body of indeterminate age. Deformities of multiple right ribs are characteristic of prior fractures. Prominence of the central vasculature of indeterminate age, possibly representing vascular congestion. Blunting of the posterior sulcus may represent small left pleural effusion. XR/XR chest 2V IMPRESSION: Prominence of the central vasculature of indeterminate age, possibly representing vascular congestion. Blunting of the posterior sulcus may represent small left pleural effusion.
--- NOTE | ~2023-11-27 | CT_ITS ---
EXAMINATION: CT LUMBAR SPINE WITHOUT CONTRAST CLINICAL INFORMATION: Spinal stenosis COMPARISON: None TECHNIQUE: A multidetector CT acquisition of the lumbar spine is obtained without contrast. This CT examination was performed using dose optimization techniques as appropriate, variously including the following: *Automated exposure control *Adjustment of mA and/or kV according to patient size (this includes techniques or standardized protocols for targeted exams where dose is matched to indication/reason for exam; i.e. extremities or head) *Use of iterative reconstruction technique DLP: 917.51 mGy-cm FINDINGS: Transitional lumbosacral anatomy. S1 appears partially lumbarized with rudimentary disc spaces at S1-S2. T12 corresponds to the last rib-bearing vertebra. Normal lumbar lordosis is preserved. Trace anterolisthesis of L3 on L4. Vertebral body heights are maintained. There is no suspicious osseous lesion. Multilevel disc height loss, worst at L5-S1 with vacuum disc phenomenon at L2-L3, L4-L5, and L5-S1. Please note canal patency is not well assessed on this examination due to inherent limitations of CT without intrathecal contrast. Within these limitations, multilevel degenerative changes with level by level detail are as follows: L1-L2: Shallow disc bulge and mild facet arthropathy. No significant spinal canal or neural foraminal narrowing L2-L3: Broad-based disc bulge, mild facet arthropathy, ligament flavum thickening. Mild to moderate central spinal canal stenosis. Mild right and mild to moderate left neural foraminal narrowing. L3-L4: Disc bulge, moderate facet arthropathy, ligamentum flavum thickening. Severe spinal canal stenosis. Mild to moderate bilateral neural foraminal narrowing. L4-L5: Moderate facet arthropathy, right greater than left, disc bulge, ligamentum flavum thickening. Severe central spinal canal stenosis. Mild bilateral neural foraminal narrowing. L5-S1: Broad-based disc bulge. Mild facet arthropathy. No significant central spinal canal stenosis. Bilateral subarticular zone narrowing with likely impingement of the traversing S1 nerve roots. There is gas in the left ventral epidural space along the left lateral recess, likely emanating from the degenerative disc space. Severe bilateral neural foraminal narrowing with impingement of the exiting S1 nerve roots. No significant abnormalities of the paraspinal musculature. Mild degenerative changes of the sacroiliac joints. Limited evaluation of the intra-abdominal structures without significant abnormalities. The abdominal aorta is of normal contour and caliber. Moderate aortoiliac atherosclerotic calcification. CT/CT lumbar spine wo IV con IMPRESSION: 1. 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 2. Multilevel lumbar spondylosis with severe spinal canal stenosis at L3-L4 and L4-L5 and mild to moderate spinal canal stenosis at L2-L3. 3. Multilevel neural foraminal narrowing which is worst and severe bilaterally at L5-S1 where there is impingement of the exiting S1 nerve roots.
--- NOTE | ~2023-11-27 | CT_ITS ---
CT CERVICAL SPINE WITHOUT CONTRAST HISTORY: Spinal stenosis TECHNIQUE: CT images of the cervical spine were acquired without intravenous contrast. This CT examination was performed using dose optimization techniques as appropriate, variously including the following: *Automated exposure control *Adjustment of mA and/or kV according to patient size (this includes techniques or standardized protocols for targeted exams where dose is matched to indication/reason for exam; i.e. extremities or head) *Use of iterative reconstruction technique DLP: 917.51 mGy-cm COMPARISON: None available. FINDINGS: The craniocervical junction is intact. The cervical lordosis is preserved. Trace anterolisthesis of C4 on C5 and C6 on C7. Vertebral body heights are normal without acute compression fracture. No suspicious osseous lesion. Multilevel disc space height loss, worst at C5-C6 and C6-C7 for there is vacuum disc phenomenon and prominent endplate osteophyte formation. There are multilevel degenerative changes with level by level detail as follows: C2-C3: Left facet arthropathy. No significant spinal canal or neural foraminal narrowing C3-C4: Right greater than left facet hypertrophy with partial right facet ankylosis. Mild uncovertebral hypertrophy. Small disc protrusion. Mild central spinal canal stenosis. Moderate bilateral neural foraminal narrowing. C4-C5: Left greater than right facet arthropathy. Shallow disc bulge. Mild uncovertebral hypertrophy. Mild right and moderate left neural foraminal narrowing and mild central spinal canal stenosis. C5-C6: Facet arthropathy, disc osteophyte complex, uncovertebral hypertrophy. Mild to moderate central spinal canal stenosis and moderate bilateral neural foraminal narrowing. C6-C7: Small disc osteophyte complex, facet arthropathy, left greater than right uncovertebral hypertrophy. Mild to moderate central spinal canal stenosis. Severe left and mild to moderate right neural foraminal narrowing. C7-T1: Right greater than left facet arthropathy. Mild right neural foraminal narrowing. No significant central spinal canal stenosis. No significant abnormalities of the paraspinal musculature. Mild right and heavy the left atherosclerotic calcification of the carotid bifurcations. Visualized lung apices are clear. Partially visualized left chest wall pacemaker leads. The visualized intracranial structures are normal. CT/CT cervical spine wo IV con IMPRESSION: Multilevel cervical spondylosis with mild to moderate central spinal canal stenosis at C5-C6 and C6-C7 and varying degrees of neural foraminal narrowing, worst and severe on the left at C6-C7.
== END 2023-11-27 10:05 | disposition home or self-care (01) ==
LOC: HO.CT 10:04
PROVIDERS: PCP Internal Medicine; Visit Provider Internal Medicine
DX: M48.061 Spinal stenosis, lumbar region without neurogenic claudication (principal); M54.50 Low back pain, unspecified; M48.02 Spinal stenosis, cervical region; J44.9 Chronic obstructive pulmonary disease, unspecified
CPT/HCPCS: 71046; 72125; 72132

== ENCOUNTER 2023-12-12 11:14 | Outpatient (AMB) | payer MEDICARE, SELFPAY ==
--- NOTE | 2023-12-12 11:22 | A.OFFVIS_ITS ---
Vital Signs 12/12/23 11:25 Height 5 ft 11 in Weight 183 lb BMI 25.5 BP 167/96 H Blood Pressure Location Lt brachial Position Sitting Respiration 14 Pulse 81 Pulse Source Pulse Oximeter Pulse Oximetry (%) 95 Oxygen Delivery Method Room Air Intake Visit Reasons: CT RESULTS Allergies codeine Allergy (Severe, Verified 12/12/23 11:26) Shakes morphine Allergy (Severe, Verified 12/12/23 11:26) Shakes tetracycline Allergy (Severe, Verified 12/12/23 11:26) Hallucinations Contrast Dye Allergy (Severe, Uncoded 12/12/23 11:26) Itching Erythromycin Allergy (Severe, Uncoded 12/12/23 11:26) Rash and Hives Medication List - Last Reconciled 12/12/23 by Emilie Hewitt LPN ascorbic acid (vitamin C) mg PO aspirin 81 mg PO DAILY atorvastatin 80 mg PO DAILY Breo Ellipta 100-25 mcg/dose (fluticasone furoate-vilanterol) 1 ea inhalation DAILY NS carvedilol 25 mg PO BID cholecalciferol (vitamin D3) 25 mcg PO DAILY coenzyme Q10 10 mg PO TID cyanocobalamin (vitamin B-12) 2,500 mcg PO DAILY dapagliflozin propanediol (Farxiga) 10 mg PO DAILY gabapentin 300 mg PO Q8H ketoconazole 2% 1 appl topical 2XW naltrexone 50 mg PO DAILY nitroglycerin mg sublingual omega-3 fatty acids (Fish Oil Concentrate) 1,000 mg PO DAILY potassium chloride ER 10 mEq PO DAILY rivaroxaban (Xarelto) 20 mg PO DAILY sacubitril-valsartan 49-51 mg (Entresto) 1 tab PO BID spironolactone 25 mg PO DAILY sulfasalazine 0.5 grams PO DAILY torsemide 20 mg PO BID HPI HPI CT RESULTS: Details: 88-year-old male who presents today to the office to discuss CT results. The patient's diagnostic images show severe spinal stenosis in the back; however, his neck is relatively fine. Informed that the treatment for this kind of lumbar spinal stenosis is surgery. He has some concerns about the procedure as he got a pacemaker placement. Denies any issues with his bowel or bladder control. The patient is on Xarelto for the atrial fibrillation. [facility] Medical History Chronic respiratory failure ARLEEN treated with BiPAP COVID-19 COPD (chronic obstructive pulmonary disease) Social History Patient Tobacco Use Status: Former Tobacco user Tobacco use type: Cigarette Years Smoked: 25 years ago Review of Systems Const All systems reviewed & are unremarkable except as noted in HPI and below Physical Exam Vital Signs: Last Vital Signs Pulse 81 12/12/23 11:25 Resp 14 12/12/23 11:25 BP 167/96 H 12/12/23 11:25 Pulse Ox 95 12/12/23 11:25 Oxygen Delivery Method Room Air 12/12/23 11:25 BMI result Body Mass Index 25.5 General: Appears afebrile. Alert and oriented. Mood and affect appropriate. Follows and participates in conversation appropriately. Respiratory effort is unlabored. Able to transition from sit to stand unassisted. Results Reviewed Results Reviewed: 11/27/23: CT LUMBAR SPINE WITHOUT CONTRAST FINDINGS: Transitional lumbosacral anatomy. S1 appears partially lumbarized with rudimentary disc spaces at S1-S2. T12 corresponds to the last rib-bearing vertebra. Normal lumbar lordosis is preserved. Trace anterolisthesis of L3 on L4. Vertebral body heights are maintained. There is no suspicious osseous lesion. Multilevel disc height loss, worst at L5-S1 with vacuum disc phenomenon at L2-L3, L4-L5, and L5-S1. Please note canal patency is not well assessed on this examination due to inherent limitations of CT without intrathecal contrast. Within these limitations, multilevel degenerative changes with level by level detail are as follows: L1-L2: Shallow disc bulge and mild facet arthropathy. No significant spinal canal or neural foraminal narrowing L2-L3: Broad-based disc bulge, mild facet arthropathy, ligament flavum thickening. Mild to moderate central spinal canal stenosis. Mild right and mild to moderate left neural foraminal narrowing. L3-L4: Disc bulge, moderate facet arthropathy, ligamentum flavum thickening. Severe spinal canal stenosis. Mild to moderate bilateral neural foraminal narrowing. L4-L5: Moderate facet arthropathy, right greater than left, disc bulge, ligamentum flavum thickening. Severe central spinal canal stenosis. Mild bilateral neural foraminal narrowing. L5-S1: Broad-based disc bulge. Mild facet arthropathy. No significant central spinal canal stenosis. Bilateral subarticular zone narrowing with likely impingement of the traversing S1 nerve roots. There is gas in the left ventral epidural space along the left lateral recess, likely emanating from the degenerative disc space. Severe bilateral neural foraminal narrowing with impingement of the exiting S1 nerve roots. No significant abnormalities of the paraspinal musculature. Mild degenerative changes of the sacroiliac joints. Limited evaluation of the intra-abdominal structures without significant abnormalities. The abdominal aorta is of normal contour and caliber. Moderate aortoiliac atherosclerotic calcification. IMPRESSION: 1. 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 2. Multilevel lumbar spondylosis with severe spinal canal stenosis at L3-L4 and L4-L5 and mild to moderate spinal canal stenosis at L2-L3. 3. Multilevel neural foraminal narrowing which is worst and severe bilaterally at L5-S1 where there is impingement of the exiting S1 nerve roots. 11/27/23: CT CERVICAL SPINE WITHOUT CONTRAST FINDINGS: The craniocervical junction is intact. The cervical lordosis is preserved. Trace anterolisthesis of C4 on C5 and C6 on C7. Vertebral body heights are normal without acute compression fracture. No suspicious osseous lesion. Multilevel disc space height loss, worst at C5-C6 and C6-C7 for there is vacuum disc phenomenon and prominent endplate osteophyte formation. There are multilevel degenerative changes with level by level detail as follows: C2-C3: Left facet arthropathy. No significant spinal canal or neural foraminal narrowing C3-C4: Right greater than left facet hypertrophy with partial right facet ankylosis. Mild uncovertebral hypertrophy. Small disc protrusion. Mild central spinal canal stenosis. Moderate bilateral neural foraminal narrowing. C4-C5: Left greater than right facet arthropathy. Shallow disc bulge. Mild uncovertebral hypertrophy. Mild right and moderate left neural foraminal narrowing and mild central spinal canal stenosis. C5-C6: Facet arthropathy, disc osteophyte complex, uncovertebral hypertrophy. Mild to moderate central spinal canal stenosis and moderate bilateral neural foraminal narrowing. C6-C7: Small disc osteophyte complex, facet arthropathy, left greater than right uncovertebral hypertrophy. Mild to moderate central spinal canal stenosis. Severe left and mild to moderate right neural foraminal narrowing. C7-T1: Right greater than left facet arthropathy. Mild right neural foraminal narrowing. No significant central spinal canal stenosis. No significant abnormalities of the paraspinal musculature. Mild right and heavy the left atherosclerotic calcification of the carotid bifurcations. Visualized lung apices are clear. Partially visualized left chest wall pacemaker leads. The visualized intracranial structures are normal. IMPRESSION: Multilevel cervical spondylosis with mild to moderate central spinal canal stenosis at C5-C6 and C6-C7 and varying degrees of neural foraminal narrowing, worst and severe on the left at C6-C7. Assessment & Plan Assessment & Plan (1) Lumbar spinal stenosis: Code(s): M48.061 - Spinal stenosis, lumbar region without neurogenic claudication Category: Medical Plan Discussed surgical decompression for his severe stenosis of the lumbar spine. I encouraged him to discuss his imaging results light of his symptoms and com orbidities with a spine surgeon. The patient requested referral to Dr. Nilo Watkins at [facility] since he has significant cardiac comorbidity and all his cardiac care is at [facility]. Neck pain due to foraminal stenoses, I offered him cervical epidural steroid injections in the future. If he is interested, he will have to hold his Xarelto each time for an injection. At this time, he would like to think about it and we will be in touch with us in the future if he decides to undergo or any kind of interventional pain therapy. Scribed for Dr. Ayala by Shruthi Nur, medical coordinator pesticide use, on 12/12/2023. I, Dr. Ayala, have personally reviewed and agree with the information entered by the scribe. Orders: Referrals Neurosurgery Referral M48.061 - Spinal stenosis, lumbar region without neurogenic claudication Coding Level of Care Code Est Pt Level 4 (86295) Diagnoses Lumbar spinal stenosis M48.061
[2023-12-12 11:25] VITALS: BP 167/96; PULSE 81; RESP 14; O2SAT 95; BMI 25.5
== END 2023-12-12 11:56 | disposition home or self-care (01) ==
PROVIDERS: PCP Internal Medicine; Visit Provider Internal Medicine
DX: M48.061 Spinal stenosis, lumbar region without neurogenic claudication (principal)
CPT/HCPCS: 99214

== ENCOUNTER → 2023-12-12 11:14 | Outpatient (BNVA) | payer MEDICARE, SELFPAY | PROVIDERS: PCP Internal Medicine; Visit Provider Internal Medicine | DX: M48.061 Spinal stenosis, lumbar region without neurogenic claudication (principal) | CPT/HCPCS: 99212 ==

== ENCOUNTER 2024-02-21 08:56 | Outpatient (AMB) | payer MEDICARE, SELFPAY ==
--- NOTE | 2024-02-21 08:59 | MHC.OFFVIS ---
Intake Visit Reasons: OV-left should INJ 08/23/23 Intake Note: Stu is a 88 year old male who presents with complaints of bilateral shoulder pains. He has had cortisone injections in the past which gave him fairly good relief. He wishes to hold off on surgery for as long as possible. He has done physical therapy exercises which aggravated his pain. Has also tried Tylenol and anti-inflammatory medicines which gave him minimal relief. Allergies codeine Allergy (Severe, Verified 02/21/24 08:59) Shakes morphine Allergy (Severe, Verified 02/21/24 08:59) Shakes tetracycline Allergy (Severe, Verified 02/21/24 08:59) Hallucinations Contrast Dye Allergy (Severe, Uncoded 02/21/24 08:59) Itching Erythromycin Allergy (Severe, Uncoded 02/21/24 08:59) Rash and Hives Medication List - Last Reconciled 02/21/24 by Raymond Fischer MD ascorbic acid (vitamin C) mg PO aspirin 81 mg PO DAILY atorvastatin 80 mg PO DAILY Breo Ellipta 100-25 mcg/dose (fluticasone furoate-vilanterol) 1 ea inhalation DAILY NS carvedilol 25 mg PO BID cholecalciferol (vitamin D3) 25 mcg PO DAILY coenzyme Q10 10 mg PO TID cyanocobalamin (vitamin B-12) 2,500 mcg PO DAILY dapagliflozin propanediol (Farxiga) 10 mg PO DAILY gabapentin 300 mg PO Q8H ketoconazole 2% 1 appl topical 2XW naltrexone 50 mg PO DAILY nitroglycerin mg sublingual omega-3 fatty acids (Fish Oil Concentrate) 1,000 mg PO DAILY potassium chloride ER 10 mEq PO DAILY rivaroxaban (Xarelto) 20 mg PO DAILY sacubitril-valsartan 49-51 mg (Entresto) 1 tab PO BID sulfasalazine 0.5 grams PO DAILY torsemide 20 mg PO BID PFSH Medical History Chronic respiratory failure ARLEEN treated with BiPAP COVID-19 COPD (chronic obstructive pulmonary disease) Social History Patient Tobacco Use Status: Former Tobacco user Tobacco use type: Cigarette Years Smoked: 25 years ago Physical Exam Const Other: Well-nourished well-developed very friendly male awake alert and oriented x3 in no acute distress Extrem Other: Bilateral upper extremity examination shows good capillary refill, no skin lesions noted, normal sensation light touch Bilateral shoulder examination shows forward flexion to 160 degrees, external rotation to 40 degrees, internal rotation 30 degrees, 4/5 strength with supraspinatus testing, positive impingement signs Office Procedures Joint Injection/Drain Joint Injection/Drain Primary Site: left shoulder Prep: site was prepped using aseptic technique Injected: 40 mg of, DepoMedrol and 1% plain lidocaine Procedure: The patient tolerated the procedure well Coding - Large joint Procedure code (CPT) selection complete Joint Injection/Drain Joint Injection/Drain Primary Site: right shoulder Prep: site was prepped using aseptic technique Injected: 40 mg of, DepoMedrol and 1% plain lidocaine Procedure: The patient tolerated the procedure well Coding - Large joint Procedure code (CPT) selection complete Assessment & Plan Assessment & Plan (1) Impingement syndrome of left shoulder: Code(s): M75.42 - Impingement syndrome of left shoulder Category: Medical (2) Impingement of right shoulder: Code(s): M25.811 - Other specified joint disorders, right shoulder Category: Medical Plan Mr. Carranza presents with bilateral shoulder pains and weakness due to chronic rotator cuff tearing. I had a lengthy discussion with the patient regarding the treatment options. He wishes to hold off on total shoulder replacement surgery for as long as possible. I agree with this plan. The risks and benefits of bilateral shoulder cortisone injections were discussed at length with the patient. The patient wished to proceed. Tolerated the injections well. He will continue with his home stretching program to prevent stiffness. Will follow up with me on an as-needed basis should his symptoms not plateau at an unacceptable level over the next few months. Feel free to call me at any time should questions regarding his orthopedic management arise. I spent 22 minutes in reviewing the patient's records and imaging studies, seeing the patient and documenting in the medical record. Orders: Orders AMB Joint Injection/Aspiration Today M75.42 - Impingement syndrome of left shoulder AMB Joint Injection/Aspiration Today M25.811 - Other specified joint disorders, right shoulder Coding Level of Care Code Est Pt Level 3 (82978) Diagnoses Impingement syndrome of left shoulder M75.42 Impingement of right shoulder M25.811 CPT Codes Coding - Large joint: 77180 - Large joint ([id number]) Coding - 52949 Large joint: 08515 - Large joint ([id number])
== END 2024-02-21 09:31 | disposition home or self-care (01) ==
PROVIDERS: PCP Internal Medicine; Visit Provider Orthopaedic Surgery
DX: M75.42 Impingement syndrome of left shoulder (principal); M25.811 Other specified joint disorders, right shoulder
CPT/HCPCS: 20610; 99213

== ENCOUNTER → 2024-02-21 08:56 | Outpatient (BNVA) | payer MEDICARE, SELFPAY | PROVIDERS: PCP Internal Medicine; Visit Provider Orthopaedic Surgery | DX: M75.42 Impingement syndrome of left shoulder (principal); M25.811 Other specified joint disorders, right shoulder | CPT/HCPCS: 20610; 99212; J1010 ==

== ENCOUNTER 2024-05-27 10:26 | Outpatient (AMB) | payer MEDICARE, SELFPAY ==
--- NOTE | 2024-05-27 10:29 | MHC.OFFVIS ---
Intake Visit Reasons: Bilateral shoulder pains Intake Note: Stu is a 89 year old male who presents with complaints of progressively worsening bilateral shoulder pains. He describes his pains as sharp in nature. His pains have gotten worse over the last year in spite of continued non operative treatments. He has had cortisone injections which gave him fairly good relief. He has also done physical therapy exercises which aggravated his pain. He has tried Tylenol and anti-inflammatory medicines which gave him minimal relief. He wishes to hold off on surgery for as long as possible. Allergies codeine Allergy (Severe, Verified 05/27/24 10:33) Shakes morphine Allergy (Severe, Verified 05/27/24 10:33) Shakes tetracycline Allergy (Severe, Verified 05/27/24 10:33) Hallucinations Contrast Dye Allergy (Severe, Uncoded 02/21/24 08:59) Itching Erythromycin Allergy (Severe, Uncoded 02/21/24 08:59) Rash and Hives Medication List - Last Reviewed 05/27/24 by MALISSA Mckeon ascorbic acid (vitamin C) mg PO aspirin 81 mg PO DAILY atorvastatin 80 mg PO DAILY Breo Ellipta 100-25 mcg/dose (fluticasone furoate-vilanterol) 1 ea inhalation DAILY NS carvedilol 25 mg PO BID cholecalciferol (vitamin D3) 25 mcg PO DAILY coenzyme Q10 10 mg PO TID cyanocobalamin (vitamin B-12) 2,500 mcg PO DAILY dapagliflozin propanediol (Farxiga) 10 mg PO DAILY gabapentin 300 mg PO Q8H ketoconazole 2% 1 appl topical 2XW naltrexone 50 mg PO DAILY nitroglycerin mg sublingual omega-3 fatty acids (Fish Oil Concentrate) 1,000 mg PO DAILY potassium chloride ER 10 mEq PO DAILY rivaroxaban (Xarelto) 20 mg PO DAILY sacubitril-valsartan 49-51 mg (Entresto) 1 tab PO BID sulfasalazine 0.5 grams PO DAILY torsemide 20 mg PO BID PFSH Medical History Chronic respiratory failure ARLEEN treated with BiPAP COVID-19 COPD (chronic obstructive pulmonary disease) Social History Patient Tobacco Use Status: Former Tobacco user Tobacco use type: Cigarette Years Smoked: 25 years ago Physical Exam Const Other: Well-nourished well-developed very friendly male awake alert and oriented x3 in no acute distress Extrem Other: Bilateral upper extremity examination shows good capillary refill, no skin lesions noted, normal sensation light touch Bilateral shoulder examination shows forward flexion to 160 degrees, internal rotation to level L2, external rotation to 40 degrees, 4/5 strength with supraspinatus testing, positive impingement signs Office Procedures Joint Injection/Aspiration Joint Injection/Aspiration Primary Site: right shoulder Prep: site was prepped using aseptic technique Injected: 40 mg of, DepoMedrol and 1% plain lidocaine Procedure: The patient tolerated the procedure well Coding - Large joint Procedure code (CPT) selection complete Joint Injection/Aspiration Joint Injection/Aspiration Primary Site: left shoulder Prep: site was prepped using aseptic technique Injected: 40 mg of, DepoMedrol and 1% plain lidocaine Procedure: The patient tolerated the procedure well Coding - Large joint Procedure code (CPT) selection complete Assessment & Plan Assessment & Plan (1) Impingement syndrome of left shoulder: Code(s): M75.42 - Impingement syndrome of left shoulder Category: Medical (2) Impingement of right shoulder: Code(s): M25.811 - Other specified joint disorders, right shoulder Category: Medical Plan Mr. Carranza presents with bilateral shoulder pains and weakness due to impingement syndrome and chronic rotator cuff tearing. I had a lengthy discussion with the patient regarding the options. The risks and benefits of bilateral shoulder cortisone injections discussed at length with the patient. The patient wished to proceed. He tolerated the injections well. He will continue with his home stretching program to prevent stiffness. He will contact me prior to his follow-up appointment in 3 months should any questions or concerns arise. Feel free to call me at any time should questions regarding his orthopedic management arise. I spent 20 minutes in reviewing the patient's records and imaging studies, seeing the patient and documenting in the medical record. Orders: Orders AMB Joint Injection/Aspiration Today M75.42 - Impingement syndrome of left shoulder AMB Joint Injection/Aspiration Today M25.811 - Other specified joint disorders, right shoulder Coding Level of Care Code Est Pt Level 3 (03662) Complex EM visit Add On G2211 Diagnoses Impingement syndrome of left shoulder M75.42 Impingement of right shoulder M25.811 CPT Codes Coding - Large joint: 36869 - Large joint ([id number]) Coding - 73932 Large joint: 19500 - Large joint ([id number])
== END 2024-05-27 11:04 | disposition home or self-care (01) ==
PROVIDERS: PCP Internal Medicine; Visit Provider Orthopaedic Surgery
DX: M75.42 Impingement syndrome of left shoulder (principal); M25.811 Other specified joint disorders, right shoulder
CPT/HCPCS: 20610; 99213

== ENCOUNTER → 2024-05-27 10:26 | Outpatient (BNVA) | payer MEDICARE, SELFPAY | PROVIDERS: PCP Internal Medicine; Visit Provider Orthopaedic Surgery | DX: M75.42 Impingement syndrome of left shoulder (principal); M25.811 Other specified joint disorders, right shoulder; M25.512 Pain in left shoulder; M25.511 Pain in right shoulder | CPT/HCPCS: 20610; 99212; J1010; J2003 ==

== ENCOUNTER 2024-10-06 13:57 | Outpatient (AMB) | payer MEDICARE, SELFPAY ==
--- NOTE | 2024-10-06 13:58 | MHC.OFFVIS ---
Vital Signs 10/06/24 13:59 Height 5 ft 11 in Weight 167 lb 8.821 oz BMI 23.4 BP 120/72 Blood Pressure Location Lt brachial Position Sitting Pulse 80 Pulse Source Pulse Oximeter Pulse Oximetry (%) 92 Oxygen Delivery Method Room Air Intake Visit Reasons: COPD Allergies codeine Allergy (Severe, Verified 10/06/24 14:56) Shakes morphine Allergy (Severe, Verified 10/06/24 14:56) Shakes tetracycline Allergy (Severe, Verified 10/06/24 14:56) Hallucinations Contrast Dye Allergy (Severe, Uncoded 10/06/24 14:56) Itching Erythromycin Allergy (Severe, Uncoded 10/06/24 14:56) Rash and Hives HPI Comments Details: The patient is a 89-year-old gentleman known congestive heart failure and also complex sleep apnea. He has been responding well to the oxygen. He feels much improved now with decreased shortness of breath with activity. He also had pulmonary function studies recently that we reviewed in the office. It appears the patient does not have any obstructive nor restrictive ventilatory defect, although, he has an isolated moderate diffusion impairment. This is likely related to his underlying pulmonary vascular disease. The patient does have evidence of chronic bronchitis with significant mucus production. I do feel that he will do well on inhaled cortical steroid at this time. He is also scheduled to undergo a sleep study to further address his issues with complex sleep apnea. It did demonstrate that he has severe complex sleep apnea. The recommendation was for him to start BiPAP therapy. 03/02/2022 the patient is here for a pulmonary follow-up visit. He has noticed increasing dyspnea on exertion. Moderate severity. Typically with activity. He does uses rescue inhaler multiple times a day because of the shortness of breath. He continues with respiratory therapy. During the office visit we did taken for 6 minute walk test. The patient did desaturate down to 88% only after a few minutes. He was placed on a conserving device initially on 2 L pulse maintain a pulse ox of 90% and on 3 L pulse to maintain a pulse ox of 93%. The patient needs portable oxygen. Will make sure to request this from the [employer]. He already uses oxygen at nighttime. 10/17/2023 the patient is here for a pulmonary follow-up visit. Overall the patient is doing better. The Breo inhaler has been helping. Does not use it regularly. In addition to this he feels significant improvement using the oxygen. The oxygen therapy has been affecting beneficial. And is treating his underlying respiratory failure due to his COPD. The patient does have small tanks that he can take with him when he is going outside of the home for better portability. In addition to that he does have a concentrator in the home that uses specially with activity and also with sleep. Therefore he is to continue to use the oxygen as prescribed. Denies any chest discomfort or cough. Will no need for any additional testing at this time. Will plan to follow-up in 6 months. However, if he develops any new or concerning symptoms prior to that he is to call the office immediately for an earlier evaluation. 10/06/2024 the patient is here for a pulmonary follow-up visit. Overall he is doing well. He has his inhalers available. He does use it with good response. He also did have a chest x-ray back last year demonstrating some pulmonary vascular congestion. [id number] severity. Otherwise no significant findings. Will have her get a another x-ray to follow-up with those findings. But otherwise he is doing good he is using the oxygen with good effect in the oxygen has been affecting beneficial. For now were not going to make any changes and will follow-up in a year's time if he develops any worsening symptoms he can always call so we can reassess. [facility] Medical History Chronic respiratory failure ARLEEN treated with BiPAP COVID-19 COPD (chronic obstructive pulmonary disease) Social History Patient Tobacco Use Status: Former Tobacco user Tobacco use type: Cigarette Years Smoked: 25 years ago Review of Systems Const Denies fever(s) and Denies night sweats ENT Denies change in voice, Denies lip swelling, Denies mouth pain, Reports nasal congestion, Reports nasal discharge and Denies tongue swelling Card Denies chest pain and Reports dyspnea on exertion Resp Reports cough and Reports dyspnea on exertion GI Denies abdominal pain Musc Denies no additional complaints and Reports abnormal gait Neuro Reports abnormal gait and Reports burning sensations Psych Denies no additional complaints Meir/Lymph Denies easy bleeding and Denies lymphadenopathy Aller/Immun Denies lip swelling and Denies tongue swelling Physical Exam Vital Signs: Last Vital Signs Pulse 80 10/06/24 13:59 BP 120/72 10/06/24 13:59 Pulse Ox 92 10/06/24 13:59 Oxygen Delivery Method Room Air 10/06/24 13:59 BMI result Body Mass Index 23.4 Const General: alert Neck Neck: Yes normal visual inspection, Yes full ROM and Yes no lymphadenopathy Chest Chest palpation & inspection: normal inspection of the chest Resp Auscultation: diminished lung sounds Cardio Rate: regular rate Rhythm: regular rhythm Heart sounds: S1 normal heart sound present and S2 normal heart sound present GI Palpation (GI): Soft to palpation and nontender Auscultation: normal bowel sounds Skin General skin exam: rashes and/or lesions noted Assessment & Plan Assessment & Plan (1) Chronic respiratory failure: Code(s): J96.10 - Chronic respiratory failure, unspecified whether with hypoxia or hypercapnia Category: Medical Qualifiers: Respiratory failure complication: hypoxia Qualified Code(s): J96.11 - Chronic respiratory failure with hypoxia (2) COPD (chronic obstructive pulmonary disease): Code(s): J44.9 - Chronic obstructive pulmonary disease, unspecified Category: Medical Qualifiers: COPD type: chronic bronchitis Chronic bronchitis type: simple Qualified Code(s): J41.0 - Simple chronic bronchitis Plan Continue Breo daily continue Loratidine/Singulair continue oxygen with activity and also with sleep. The oxygen therapy has been effective and beneficial. CXR Follow-up in 12 months or sooner if worsening symptoms develop Orders: Orders XR chest 2V Today J96.11 - Chronic respiratory failure with hypoxia Coding Level of Care Code Est Pt Level 4 (89723) Diagnoses Chronic respiratory failure with hypoxia J96.11 Respiratory failure complication: hypoxia Simple chronic bronchitis J41.0 COPD type: chronic bronchitis Chronic bronchitis type: simple Time Spent (min) 16
[2024-10-06 13:59] VITALS: BP 120/72; PULSE 80; O2SAT 92; BMI 23.4
--- OUTSIDE RECORDS SUMMARY | 2024-10-06 16:01 | XMS_ITS | Clinical Summary ---
Author Organization [facility] Address [address] [place] [address] Care Team Providers Care Manager Of Production Name Role Phone Yusuf Elliott MD Primary Care Provider [phone] Allergies Active Allergy Reactions Criticality Noted Date Comments Codeine 11/01/2017 Erythromycin 11/01/2017 Iodinated Contrast Media 11/01/2017 Morphine 11/01/2017 Tetracycline 11/01/2017 Medications Medication Sig Dispensed Refills Start Date End Date Status amLODIPine (NORVASC) tablet 5 mg TAKE 1 TABLET BY ORAL ROUTE EVERY DAY 3 08/28/2017 Active losartan (COZAAR) 100 MG tablet TAKE 1 TABLET BY ORAL ROUTE EVERY DAY 3 10/03/2017 Active metoprolol succinate (TOPROL-XL) 24 hr tablet 100 mg TAKE 1 TABLET BY ORAL ROUTE EVERY DAY 5 10/18/2017 Active metoprolol succinate (TOPROL-XL) 24 hr tablet 50 mg TAKE 1 TABLET BY MOUTH EVERY DAY 5 10/17/2017 Active nitroglycerin (NITRODUR) 0.2 MG/HR APPLY 1 PATCH BY TRANSDERMAL ROUTE EVERY DAY REMOVE AT NIGHT FOR 10-12 HOURS 6 10/03/2017 Active sulfaSALAzine (AZULFIDINE) 500 MG tablet 0 10/04/2017 Active metoprolol tartrate (LOPRESSOR) 50 MG tablet Take 50 mg by mouth 2 (two) times a day. 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 07/24/2018 Family History Medical History Relation Name Comments Heart disease Father Stroke Father Heart disease Mother Stroke Mother Heart disease Sister Stroke Sister Relation Name Status Comments Father Mother Sister Social History Tobacco Use Types Packs/Day Years Used Date Smoking Tobacco: Never Assessed Sex and Gender Information Value Date Recorded Sex Assigned at Not on file Gender Identity Not on file Sexual Orientation Not on file Last Filed Vital Signs Vital Sign Reading Time Taken Comments Blood Pressure - - Pulse - - Temperature - - Respiratory Rate - - Oxygen Saturation - - Inhaled Oxygen Concentration - - Weight 83.9 kg (185 lb) 10/10/2019 1:29 PM EST Height 175.3 cm (5' 9 ) 10/10/2019 1:29 PM EST Body Mass Index 27.32 10/10/2019 1:29 PM EST Plan of Treatment Health Maintenance Due Date Last Done Comments Depression Screening 1947 Preventative Health Evaluation 1955 DTap / Tdap / Td (1 - Tdap) 02/27/1956 Shingrix-Zoster Vaccine (1 o f 2) 1987 Fall Risk Assessment 2002 RSV Adult > 60+ Yrs or (1 - 1-dose 75+ series) 02/27/2012 Pneumococcal Vaccine (2 of 2 - PCV) 12/16/2016 12/17/2015 COVID-19 Vaccine (2023-2 5 season) 2024 12/28/2020, 12/07/2020 Influenza Vaccine (#1) 2024 Hepatitis B Vaccines Aged Out No long er eligible based on patient's age to complete this topic RSV Ped < 20 months Aged Out No longe r eligible based on patient's age to complete this topic Care Teams Manager Of Production Relationship Specialty Start Date End Date Yusuf Elliott MD [address] [place] [address] PCP - General Internal Medicine 10/10/19
--- OUTSIDE RECORDS SUMMARY | 2024-10-06 16:01 | XMS_ITS | Clinical Summary ---
Author Organization [address] [place] [address] Address [address] [place] [address] Phone Care Team Providers Care Satellite Communications Engineer Name Role Phone Yusuf Elliott MD Primary Care Provider [phone] Allergies Active Allergy Reactions Criticality Noted Date Comments Codeine Hallucinations Medium 11/01/2017 Other Reaction(s): Hives/Urticaria, Rash/Dermatitis Erythromycin Hives Low 11/01/2017 Other Reaction(s): Hives/Urticaria Iodinated Contrast Media Low blood pressure Medium Iv Contrast Dye Shaking Morphine Respiratory Issues Medium 11/01/2017 Omeprazole 05/15/2024 Hematuria Other Other 11/01/2017 Diagnostic X-Ray Materials shaking Penicillins Other Low 11/08/2021 Tetracyclines Hives Low 11/01/2017 Other Reaction(s): Hives/Urticaria Medications dapagliflozin propanediol (Farxiga) 10 mg tablet TAKE 1 TABLET BY MOUTH EVERY DAY 05/21/2023 Active nitroglycerin (NITROSTAT) 0.[address] 1 Tablet under the tongue every 5 minutes as needed for Chest pain. 03/27/2023 Active gabapentin (NEURONTIN) 300 mg capsule Take 1 Capsule by mouth as needed. 12/05/2022 Active torsemide (DEMADEX) 20 mg tablet Take 1 Tablet by mouth 2 times daily. 05/30/2022 Active acetaminophen (TYLENOL) 325 mg tablet Take 2 Tablets by mouth every 6 hours as needed. Active naltrexone HCl (NALTREXONE ORAL) Take 5.5 mg by mouth daily. Active aspirin (ASPIR-81 ORAL) Take 81 mg by mouth daily. Active ubidecarenone (COQ-10 ORAL) 1 Tablet daily. 10/20/2013 Active GARLIC ORAL 1 Tablet daily. Active sulfaSALAzine (AZULFIDINE) 500 mg tablet Take 5 Tablets by mouth 2 times daily. Active vitamin E acetate (VITAMIN E ORAL) Take 1,000 mg by mouth daily. 03/20/2017 Active VITAMIN B COMPLEX ORAL 1 Tablet daily. 12/09/2019 Active rivaroxaban (XARELTO) 20 mg tablet Take 1 tablet (20 mg total) by mouth 1 (one) time each day with dinner. Take with food. 90 tablet 3 06/17/2024 Active carvediloL (COREG) 25 mg tablet Take 1 tablet (25 mg total) by mouth 2 (two) times a day with meals. 180 tablet 2 07/07/2024 Active semaglutide (Rybelsus) 7 mg tablet Take 1 tablet (7 mg total) by mouth 1 (one) time each day before breakfast. Active rosuvastatin (CRESTOR) 40 mg tablet Take 1 tablet (40 mg total) by mouth 1 (one) time each day. 90 each 1 08/26/2024 Active Entresto 49-51 mg per tablet TAKE 1 TABLET BY MOUTH TWICE A DAY 180 tablet 2 09/03/2024 Active ibuprofen (ADVIL,MOTRIN) 200 mg tablet Take 1 tablet (200 mg total) by mouth every 6 (six) hours if needed. Active Active Problems Problem Noted Date Diagnosed Date Ascending aortic aneurysm 08/26/2024 Bifascicular block 11/08/2021 Diabetes mellitus type 2, diet-controlled 2021 Acid reflux 08/25/2020 Alcohol abuse, daily use 08/25/2020 Atrial fibrillation 08/25/2020 Overview (05/15/2024): Last Assessment & Plan: Patient has history of paroxysmal atrial fibrillation continues on Xarelto for anticoagulation. He denies any bleeding or excessive bruising. Creatinine clearance 62 mL/min. Patient is on appropriate Xarelto dose 20 mg daily. Atrial tachycardia 08/25/2020 Chest pain 08/25/2020 Overview (05/15/2024): D/C'd from [facility] 11/01/21 Coronary artery disease 08/25/2020 Overview (05/15/2024): 2018-CABG ISAAC to LAD, SVG to obtuse marginal branch of circumflex artery 2019-Diagnostic coronary angiogram showing 50% lesion in the distal LMCA (unchanged), LAD stent patent, 50% stenosis after the stent in the bifurcation with the first diagonal, moderate diffuse distal LAD disease. No significant change when compared to previous coronary angiogram. ISAAC to LAD and SVG to OM1 were widely patent. Last Assessment & Plan: Patient is significant history of coronary disease status post three-vessel CABG in 2018. Last coronary angiogram completed 11/2022 as outlined in detail above. No indication for intervention. He continues on medical therapy and denies any exertional anginal symptoms. Continue with aspirin, beta-donna and statin as prescribed. I have reviewed with the patient the importance of a heart healthy lifestyle which includes eating a low-fat low-salt diet, getting regular exercise, maintaining a healthy weight, not smoking, and following up with routine medical care. Hyperlipidemia 08/25/2020 Overview (05/15/2024): Last Assessment & Plan: Patient continues on maximum dose atorvastatin. Last LDL cholesterol was 111. Patient encouraged to follow a low-fat diet. Hypertension 08/25/2020 Overview (05/15/2024): Last Assessment & Plan: Patient's blood pressure is generally well-controlled. Borderline high today with a reading of 136/90. We will continue to monitor this and he has a blood pressure cuff at home. 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 He has a biventricular ICD in place. Patient was seen at the [facility] advanced heart failure clinic. Patient denies any clinical symptoms of worsening heart failure. He is euvolemic on physical examination. He continues on Entresto, carvedilol, Farxiga and torsemide. No changes to medical therapies today. Patient advised to seek emergency medical attention by calling 911 if they were to develop severe dyspnea, chest pain that did not resolve with rest or nitroglycerin, or if they were to faint. I've asked the patient to call if they develop worsening symptoms of heart failure such as increased shortness of breath, new or worsening cough, increased swelling in the legs or ankles, or weight gain of more than 2 pounds in one day or 4 pounds in one week. ARLEEN (obstructive sleep apnea) 08/25/2020 Right bundle branch block 08/25/2020 SSS (sick sinus syndrome) 08/25/2020 Overview (05/15/2024): 05/01/16 PPM implanted Last Assessment & Plan: Patient has history of sick sinus syndrome status post permanent pacemaker implanted in 2015. He had an upgrade of his device to a biventricular AICD 08/2018. We will continue to monitor with remote monitoring and routine visits to our device clinic. Transient ischemic attack 08/25/2020 Ventricular tachycardia 08/25/2020 Overview (05/15/2024): Last Assessment & Plan: Has history of intermittent ventricular tachycardia captured on device monitoring. He is on maximum dose carvedilol 25 mg twice daily. Seen by Dr. Woodward at the past and will send back to EP service if further concerns arise. 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 07/24/2018 Resolved Problems Problem Noted Date Diagnosed Date Resolved Date Socrates-Colin breathing 11/08/202108/13 Hypoglycemia 11/08/2021 08/26/2024 Dyspnea 08/25/2020 08/26/2024 Encounters Date Type Department Care Team Description 10/01/2024 9:45 AM EST Ancillary Procedure [facility] - [address] [place] [address] 09/02/2024 9:25 PM EST Ancillary Procedure [facility] - [address] [place] [address] 09/02/2024 7:40 AM EST - 09/02/2024 11:59 PM EST Hospital Encounter [facility] Xray [address] [place] [address] Pain Discharge Disposition: Home or Self Care 09/02/2024 7:37 AM EST - 09/02/2024 11:59 PM EST Hospital Encounter [facility] Pain Management [address] [place] [address] Grey Apodaca MD Radiculopathy, lumbar region Discharge Disposition: Home or Self Care 08/26/2024 8:10 AM EST Office Visit [facility] [address] [place] [address] Radha Caal NP Coronary artery disease involving oneida coronary artery of oneida heart without angina pectoris (Primary Dx); Ischemic cardiomyopathy; Aneurysm of ascending aorta without rupture (CMS/HCC); Paroxysmal atrial fibrillation (CMS/HCC); SSS (sick sinus syndrome) (CMS/HCC); Primary hypertension; Mixed hyperlipidemia; ARLEEN (obstructive sleep apnea) 07/29/2024 12:00 PM EST Ancillary Procedure [facility] - [address] [place] [address] 07/25/2024 Telephone [facility] - [address] [place] [address] Pb Woodward MD Rapid Heart Rate 07/15/2024 7:23 AM EST - 07/15/2024 11:59 PM EST Hospital Encounter [facility] [address] [place] [address] Pain Discharge Disposition: Home or Self Care 07/15/2024 7:02 AM EST - 07/15/2024 11:59 PM EST Hospital Encounter [facility] [address] [place] [address] Grey Apodaca MD Radiculopathy, lumbar region Discharge Disposition: Home or Self Care 07/07/2024 Telephone [facility] [address] [place] [address] Denis Mackay MD [facility] Follow-up from Last 3 Months Immunizations Name Administration Dates Next Due Pfizer SARS-CoV-2 COVID-19, mRNA, LNP-S, preservative free 12/28/2020 Surgical History Surgery Date Site/Laterality Comments CORONARY ARTERY BYPASS GRAFT 2018 PROCEDURE: HISTORICAL CABG COLONOSCOPY W/ BIOPSIES 04/27/2017 PROCEDURE: MT COLONOSCOPY W/BIOPSY SINGLE/MULTIPLE; COMMENT: flexible, proximal to splenic flexure PACEMAKER IMPLANT 05/01/2016 PROCEDURE: HISTORICAL PACEMAKER OTHER SURGICAL HISTORY PROCEDURE: HISTORICAL ICD CATARACT EXTRACTION Bilateral PROCEDURE: HISTORICAL CATARACT REMOVAL COLONOSCOPY W/ BIOPSIES 04/01/2015 PROCEDURE: MT COLONOSCOPY W/BIOPSY SINGLE/MULTIPLE; COMMENT: flexible, proximal to splenic flexure FLEXIBLE SIGMOIDOSCOPY 11/01/2012 PROCEDURE: HISTORICAL FLEXIBLE SIGMOIDOSCOPY; COMMENT: dx, w/ or w/o collection of specimen(s) by brushing or washing (separate procedure) OTHER SURGICAL HISTORY 03/11/2012 PROCEDURE: MT ENDOSCOPY UPPER SMALL INTESTINE; COMMENT: including esophagus, stomach, and either the duodenum and/or jejunum as appropriate; dx, w/ or w/o collection of specimen(s) by brushing or washing (separate procedure) COLONOSCOPY W/ BIOPSIES 07/04/2010 PROCEDURE: MT COLONOSCOPY W/BIOPSY SINGLE/MULTIPLE; COMMENT: flexible, proximal to splenic flexure OTHER SURGICAL HISTORY PROCEDURE: MT PRQ TRLUML CORONARY STENT/ATH/ANGIO ADDL BRANCH HERNIA REPAIR PROCEDURE: HISTORICAL HERNIA REPAIR/ING OTHER SURGICAL HISTORY PROCEDURE: SKIN EXCISION Medical History Medical History Date Comments Coronary artery disease 08/25/2020 DX:Coron albert artery disease; COMMENT: 2018-CABG ISAAC to LAD, SVG to obtuse marginal branch of circumflex artery 2019-Diagnostic coronary angiogram showing 50% lesion in the distal LMCA (unchanged), LAD stent patent, 50% stenosis after the stent in the bifurcation with the first diagonal, moderate diffuse distal LAD disease. No significant change when compared to previous coronary angiogram. ISAAC * Transient ischemic attack 08/25/2020 DX:Tra nsient ischemic attack Right bundle branch block 08/25/2020 DX:Rig ht bundle branch block Atrial tachycardia (CMS/HCC) 08/25/2020 DX: Atrial tachycardia (HCC) Paroxysmal atrial tachycardi a by electrocardiography (CMS/HCC) 08/25/2020 DX:Paroxysmal atrial tac hycardia by electrocardiography ([facility]); COMMENT: ECG: paroxysmal atrial tachy. 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 07/24/2018 DX:Secondary osteoar thritis of left shoulder due to rotator cuff tear Dyspnea 08/25/2020 DX:Dyspnea Atypical chest pain 08/25/2020 DX:Atypical chest pain Ulcerative colitis ([facility]) DX: Ulcerative colitis ([facility]) Alcohol abuse, daily use 08/25/2020 DX:Alco hol abuse, daily use; COMMENT: beers & shots daily ARLEEN (obstructive sleep apnea) 08/25/2020 DX :ARLEEN (obstructive sleep apnea) Socrates-Colin breathing DX:Cheyn e-Colin breathing Dehydration DX:Dehydration Diabetes mellitus type 2, diet-controlled ([facility]) DX:Diabetes mellitus type 2, diet-controlled ([facility]) Gastroesophageal reflux disease DX:Gastroesophageal reflux disease; COMMENT: with cough History of TIAs DX:History of TI As Hypoglycemia DX:Hypoglycemia Tremor DX:Tremor; 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 Hyperlipidemia DX:Hyperlipidemi a Essential hypertension DX:Essent ial hypertension Family History Medical History Relation Name Comments Coronary artery disease Father Heart failure Father Coronary artery disease Mother Heart failure Mother Coronary artery disease Sister Heart failure Sister Relation Name Status Comments Father Mother Sister Social History Tobacco Use Types Packs/Day Years Used Date Smoking Tobacco: Former Cigarettes Q uit: 08/13/1994 Smokeless Tobacco: Never Alcohol Use Standard Drinks/Week Comments Yes 2 (1 standard drink = 0.6 oz pur e alcohol) Interpersonal Safety Answer Date Record ed Physical Abuse 07/15/2024 Verbal Abuse 07/15/2024 Sex and Gender Information Value Date Recorded Sex Assigned at Male 07/15/2024 6:55 AM EST Legal Sex Male 4:17 PM EST Gender Identity Male 07/15/2024 6:55 AM EST Sexual Orientation Straight 07/15/2024 6: 55 AM EST Obstetrics History Last Filed Vital Signs Vital Sign Reading Time Taken Comments Blood Pressure 127/78 09/02/2024 9:27 AM EST Pulse 79 09/02/2024 9:27 AM EST Temperature 36.4 ??C (97.5 ??F) 09/02/2024 9:27 AM ES T Respiratory Rate 18 09/02/2024 9:27 AM EST Oxygen Saturation 95% 09/02/2024 9:27 AM EST Inhaled Oxygen Concentration - - Weight 75.3 kg (165 lb 14.4 oz) 08/26/2024 8:02 AM EST Height 180.3 cm (5' 11 ) 08/26/2024 8:02 AM EST Body Mass Index 23.14 08/26/2024 8:02 AM EST Plan of Treatment Upcoming Encounters Date Type Department Care Team (Late st Contact Info) Description 11/19/2024 10:00 AM EDT Ancillary Procedure [facility] - [address] [place] [address] 06/29/2025 11:00 AM EST Ancillary Procedure [facility] - [address] [place] [address] Health Maintenance Due Date Last Done Comments Diabetes: Annual Foot Exam 1945 Diabetes: Annual Retina Eye Exam 1945 Hepatitis A Vaccines (1 of 2 - Risk 2-dose series) 02/27/1956 Zoster Vaccines (1 of 2) 1987 RSV Immunization Patients 60 + Years Old (1 - 1-dose 75+ series) 02/27/2012 Pneumococcal Vaccine: 50+ Years (2 of 2 - PCV) 12/16/2016 12/17/2015 COVID-19 Vaccine (3 - Pfizer risk series) 01/25/2021 12/28/2020, 12/07/2020 Depression Screening 07/20/2022 Medicare Annual Wellness Visit 07/20/2022 Social Influencers of Health Screening 07/20/2022 Diabetes: Blood Sugar Contro l Test (HGBA1C) 07/27/2022 Influenza Vaccine (#1) 2024 Hypertension/CHF/CAD Annual BMP Blood Test 06/20/2025 06/20/2024 Falls Risk Assessment 09/02/2025 09/02/2024 Cholesterol Screening (Lipid Panel) 06/20/2029 06/20/2024 DTaP,Tdap,and Td Vaccines (3 - Td or Tdap) 05/23/2031 05/23/2021, 03/17/2016 HIB Vaccines Aged Out No longer eligi ble based on patient's age to complete this topic HPV Vaccines Aged Out No longer eligi ble based on patient's age to complete this topic Hepatitis B Vaccines Aged Out No long er eligible based on patient's age to complete this topic IPV Vaccines Aged Out No longer eligi ble based on patient's age to complete this topic MMR Vaccines Aged Out No longer eligi ble based on patient's age to complete this topic Meningococcal ACWY Vaccine Aged Out N o longer eligible based on patient's age to complete this topic Meningococcal B Vacine Aged Out No lo nger eligible based on patient's age to complete this topic RSV Immunization Patients Under 20 months Aged Out No longer eligible b ased on patient's age to complete this topic Varicella Vaccines Aged Out No longer eligible based on patient's age to complete this topic Medical Devices Implanted Type Area Russian Language Instructor Device Identifier Shelf Expiration Date Model / Serial / Lot [employer] Rahula 7 Hf-T Qp [id number] Implanted:11/2018 (Quantity not on file) Cardiac NEUROSCIENCE SPECIALIST-D ICD [employer] ILIVIA 7 HF-T QP / [id number] / Procedures Procedure Name Priority Date/Time Associated Diagnosis Comments CARDIAC DEVICE CHECK- REMOTE- MURJ Routine 10/01/2024 9:41 AM EST CARDIAC DEVICE CHECK- REMOTE- MURJ Routine 09/02/2024 9:22 PM EST XR FLUORO UP TO 1 HOUR Routine 09/02/2024 9:30 AM EST Pain POCT GLUCOSE BLOOD Routine 09/02/2024 7: 52 AM EST CARDIAC DEVICE CHECK- REMOTE- MURJ Routine 07/29/2024 11:58 AM EST XR FLUORO UP TO 1 HOUR Routine 07/15/2024 8:14 AM EST Pain POCT GLUCOSE BLOOD Routine 07/15/2024 7: 17 AM EST BASIC METABOLIC PANEL Routine 06/20/2024 3:15 PM EST LIPID PANEL Routine 06/20/2024 3:15 PM EST from Last 3 Months or Most Recently Relevant to Health Maintenance Results * Cardiac device check - Remote- MURJ (10/01/2024 9:41 AM EST) Only the most recent of3 resultswithin the time period is included. Date Time Interrogation Session [id number] CV DEVICE CHECK Type Interrogation Session RemoteScheduled CV DEVICE CHECK Implantable Pulse Generator Russian Language Instructor BIO CV DEVICE CHECK Implantable Pulse Generator Type NEUROSCIENCE SPECIALIST-D CV DEVICE CHECK Implantable Pulse Generator Model Ilivia 7 HF-T QP CV DEVICE CHECK Implantable Pulse Generator Serial Number [id number] CV DEVICE CHECK Implantable Pulse Generator Implant Date [id number] CV DEVICE CHECK Battery Remaining Percentage 14.00 CV DEVICE CHECK Battery Voltage 2.830 CV D EVICE CHECK Battery CORE RESCUER Trigger 2.500 CV DEVICE CHECK Battery Status Middle of Service CV DEVICE CHECK Capacitor Charge Time 10.500 CV DEVICE CHECK Salvador Statistic RA Percent Paced 81.00 CV DEVICE CHECK Salvador Statistic RV Percent Paced 100.00 CV DEVICE CHECK NEUROSCIENCE SPECIALIST Statistic LV Percent Paced 92.00 CV DEVICE CHECK NEUROSCIENCE SPECIALIST Statistic NEUROSCIENCE SPECIALIST Percent Paced 100.00 CV DEVICE CHECK Atrial Tachy Statistic AT/AF [place] Percent 0.00 CV DEVICE CHECK Lead Channel Sensing Intrinsic Amplitude 3.900 CV DEVICE CHECK Lead Channel Setting Sensing Sensitivity 0.40 CV DEVICE CHECK Lead Channel Impedance Value 594 CV DEVICE CHECK Lead Channel Pacing Threshold Amplitude 0.900 CV DEVICE CHECK Lead Channel Pacing Threshold Pulse Width 0.4 CV DEVICE CHECK Lead Channel RA Pacing Threshold Date 2024-09-29 CV DEVICE CHECK Lead Channel Setting Pacing Amplitude 1.900 CV DEVICE CHECK Lead Channel Setting Pacing Pulse Width 0.4 CV DEVICE CHECK Lead Channel Setting Sensing Sensitivity 0.80 CV DEVICE CHECK Lead Channel Impedance Value 522 CV DEVICE CHECK Lead Channel Pacing Threshold Amplitude 0.700 CV DEVICE CHECK Lead Channel Pacing Threshold Pulse Width 0.4 CV DEVICE CHECK Lead Channel RV Pacing Threshold Date 2024-09-29 CV DEVICE CHECK Lead Channel Setting Pacing Amplitude 1.700 CV DEVICE CHECK Lead Channel Setting Pacing Pulse Width 0.4 CV DEVICE CHECK Lead Channel Impedance Value 1,289 CV DEVICE CHECK Lead Channel Pacing Threshold Date 2024-09-29 CV DEVICE CHECK Lead Channel Setting Pacing Amplitude 3.000 CV DEVICE CHECK Lead Channel Setting Pacing Pulse Width 1.0 CV DEVICE CHECK Salvador Setting Mode (NBG Code) DDD-CLS CV DEVICE CHECK Ventricular chambers paced during NEUROSCIENCE SPECIALIST pacing. BiV CV DEVICE CHECK Salvador Setting Lower Rate Limit 70 CV DEVICE CHECK Salvador Setting AT Mode Switch Rate 160 CV DEVICE CHECK Salvador Setting Maximum Tracking Rate 130 CV DEVICE CHECK Salvador Setting Maximum Sensor Rate 120 CV DEVICE CHECK Salvador Setting PAV Delay 120 CV DEVICE CHECK Salvador Setting STANLEY Delay 80 CV DEVICE CHECK NEUROSCIENCE SPECIALIST LV-RV Delay 0 CV D EVICE CHECK Therapy Statistic Recent Shocks Delivered 0 CV DEVICE CHECK Therapy Statistic Recent Shocks Aborted 0 CV DEVICE CHECK Therapy Statistic Recent ATP Delivered 0 CV DEVICE CHECK Shock Measured Impedance 62 CV DEVICE CHECK Zone Setting Type Category Zone_ATAF CV DEVICE CHECK Rate 200 CV DEVICE CHECK Zone Setting Status Monitor CV DEVICE CHECK Zone ID 9 CV DEVICE CHECK Zone Setting Type Category VF CV DEVICE CHECK Rate 200 CV DEVICE CHECK Therapies Burst,30.0J,40.0J, 40.0J x 6 CV DEVICE CHECK Zone Setting Status On CV DEVICE CHECK Zone ID 10 CV DEVICE CHECK Zone Setting Type Category VT CV DEVICE CHECK Rate 154 CV DEVICE CHECK Therapies 3 x Burst,20.0J,30.0J, 40.0J x 6 CV DEVICE CHECK Zone Setting Status On CV DEVICE CHECK Zone ID 11 CV DEVICE CHECK Zone Setting Type Category VT CV DEVICE CHECK Zone Setting Status Inactive CV DEVICE CHECK Zone ID 12 CV DEVICE CHECK Date of Service 2024-10-05 CV DEVICE CHECK Anatomical Region Laterality Modality Device Interroga tion 09/29/2024 12:1 8 AM EST Impressions 10/01/2024 9:31 AM EST Heart Failure Diagnostic: Stable * Heart failure diagnostics assessed through the device * Status: Stable * No overt HF present Narrative Procedure Note Pb Woodward MD - 10/01/2024 IMPRESSION: Heart Failure Diagnostic: Stable * Heart failure diagnostics assessed through the device * Status: Stable * No overt HF present us Pb Woodward MD CV IMPLANTABLE CARDIAC DEV ICE PROCEDURES Final Result * XR Fluoro Up To 1 Hour (09/02/2024 9:30 AM EST) Only the most recent of2 resultswithin the time period is included. Anatomical Region Laterality Modality Body Radio Fluoroscop y 09/02/2024 10:4 6 AM EST Narrative 09/02/2024 10:46 AM EST Fluoroscopic spot radiographs obtained during lumbosacral spine injection are submitted. No radiologist consultation was requested or provided during this procedure and there is no radiologist professional charge. This report is generated for documentation purposes only. The dose for this procedure was 5.76 mGy. PQRI CPT II G9500 -------- FINAL REPORT -------- Dictated By: Stu Marquez Dictated Date: 09/02/2024 10:46 ET Assigned Physician: Stu Marquez Reviewed and Electronically Signed By: Stu Marquez Signed Date: 09/02/2024 10:46 ET Workstation ID: [id number] Transcribed By: Self Edit Transcribed Date: 09/02/2024 10:46 ET Procedure Note Stu Marquez MD - 09/02/2024 Fluoroscopic spot radiographs obtained during lumbosacral spine injectionare submitted. No radiologist consultation was requested or providedduring this procedure and there is no radiologist professional charge.This report is generated for documentation purposes only. The dose for this procedure was 5.76 mGy. PQRI CPT II G9500 -------- FINAL REPORT -------- Dictated By: Stu Marquez Dictated Date: 09/02/2024 10:46 ET Assigned Physician: Stu Marquez Reviewed and Electronically Signed By: Stu Marquez Signed Date: 09/02/2024 10:46 ET Workstation ID: [id number] Transcribed By: Self Edit Transcribed Date: 09/02/2024 10:46 ET us Grey Apodaca MD IMG FLUOROSCOPY PROCEDURES Fin al Result * (ABNORMAL) POCT Glucose, blood (09/02/2024 7:52 AM EST) Only the most recent of2 resultswithin the time period is included. Glucose POCT 130(H) 70 - 100 mg/dL 09/02/2024 8:19 AM EST [facility] Blood Capillary blood specimen / Unknown 09/02/2024 7:52 AM EST 09/02/2024 8:20 AM EST us Grey Apodaca MD LAB POINT OF CARE TE ST DOCKED DEVICE UNSOLICITED RESULTS Final Result [facility] [address] [place] [address], [place] [phone] * (ABNORMAL) Lipid panel (06/20/2024 3:15 PM EST) Cholesterol Total 209(H) 100 - 199 mg/dL [facility] Triglycerides 133 0 - 149 mg/dL [facility] HDL Cholesterol 57 >39 mg/dL [facility] VLDL Cholesterol Calculated 24 5 - 40 mg/dL [facility] LDL Chol Calc (NIH) 128(H) 0 - 99 mg/dL [facility] 06/20/2024 3:15 PM EST 06/20/2024 Narrative [facility] - 06/21/2024 5:06 AM EST Performed at: ??01 - [facility] [address] ??[id number] Senior Packaging Engineer: Meri Dillard MD, Phone: ??[phone] us Denis Mackay MD LAB BLOOD ORDERABLES Final Res ult [facility] * (ABNORMAL) Basic metabolic panel (06/20/2024 3:15 PM EST) Glucose 118(H) 70 - 99 mg/dL [facility] Blood Urea Nitrogen (BUN) 26 8 - 27 mg/dL [facility] Creatinine 1.01 0.76 - 1.27 mg/dL [facility] 1 eGFR 72 >59 mL/min/1.7 3 [facility] 1 BUN/Creatinine Ratio 26(H) 10 - 24 [facility] 1 Sodium 145(H) 134 - 144 mmol/L [facility] 1 Potassium 4.9 3.5 - 5.2 mmol/L [facility] 1 Chloride 104 96 - 106 mmol/L [facility] 1 Carbon Dioxide 20 20 - 29 mmol/L [facility] 1 Calcium 9.6 8.6 - 10.2 mg/dL [facility] 1 06/20/2024 3:15 PM EST 06/20/2024 Narrative [facility] 1 - 06/24/2024 12:08 PM EST Performed at: ??01 - [facility] [address] ??[id number] Senior Packaging Engineer: Meri Dillard MD, Phone: ??[phone] us Denis Mackay MD LAB BLOOD ORDERABLES Final Res ult [facility] 1 from Last 3 Months or Most Recently Relevant to Health Maintenance Insurance MEDICARE [facility] Care Teams Satellite Communications Engineer Relationship Specialty Start Date End Date Yusuf Elliott MD [address] [place] [phone] [facility] - General 07/15/12
--- OUTSIDE RECORDS SUMMARY | 2024-10-06 16:01 | XMS_ITS | Encounter Summary ---
Author Organization [facility] Address [address] [place] [address] Care Team Providers Care Assembler Engine Name Role Phone Yusuf Elliott MD Primary Care Provider [phone] Encounter Details Date Type Department Care Team (Late st Contact Info) Description 10/01/2024 9:45 AM EST Ancillary Procedure [facility] [address] [facility] [address] [place] [address] Social History Tobacco Use Types Packs/Day Years [...] Orientation Straight 07/15/2024 6: 55 AM EST documented as of this encounter Plan of Treatment Upcoming Encounters Date Type Department Care Team (Late st Contact Info) Description 11/19/2024 10:00 AM EDT Ancillary Procedure [facility] [address] [facility] [address] [place] [address] 06/29/2025 11:00 AM EST Ancillary Procedure [facility] [address] [facility] [address] [place] [address] documented as of this encounter Procedures Procedure Name Priority Date/Time Associated Diagnosis Comments CARDIAC DEVICE CHECK- REMOTE- MURJ Routine 10/01/2024 9:41 AM EST documented in this encounter Results * Cardiac device check - Remote- MURJ (10/01/2024 9:41 AM EST) Date Time Interrogation Session [id number] CV DEVICE CHECK Type Interrogation Session RemoteScheduled CV DEVICE CHECK Implantable Pulse Generator Master Certified Rv Technician BIO CV DEVICE CHECK Implantable Pulse Generator Type RELEASE ENGINEER-D CV DEVICE CHECK Implantable Pulse Generator Model Ilivia 7 HF-T QP CV DEVICE CHECK Implantable Pulse Generator Serial Number [id number] CV DEVICE CHECK Implantable Pulse Generator Implant Date [id number] CV DEVICE CHECK Battery Remaining Percentage 14.00 CV DEVICE CHECK Battery Voltage 2.830 CV D EVICE CHECK Battery SUPPORT COORDINATOR Trigger 2.500 CV DEVICE CHECK Battery Status Middle of Service CV DEVICE CHECK Capacitor Charge Time 10.500 CV DEVICE CHECK Salvador Statistic RA Percent Paced 81.00 CV DEVICE CHECK Salvador Statistic RV Percent Paced 100.00 CV DEVICE CHECK RELEASE ENGINEER Statistic LV Percent Paced 92.00 CV DEVICE CHECK RELEASE ENGINEER Statistic RELEASE ENGINEER Percent Paced 100.00 CV DEVICE CHECK Atrial Tachy Statistic AT/AF Randolph Percent 0.00 CV DEVICE CHECK Lead Channel [...] CV DEVICE CHECK Ventricular chambers paced during RELEASE ENGINEER pacing. BiV CV DEVICE CHECK Salvador Setting Lower Rate Limit 70 CV DEVICE CHECK Salvador Setting AT Mode Switch Rate 160 CV DEVICE CHECK Salvador Setting Maximum Tracking Rate 130 CV DEVICE CHECK Salvador Setting Maximum Sensor Rate 120 CV DEVICE CHECK Salvador Setting PAV Delay 120 CV DEVICE CHECK Salvador Setting STANLEY Delay 80 CV DEVICE CHECK RELEASE ENGINEER LV-RV Delay 0 CV D EVICE CHECK [...] IMPLANTABLE CARDIAC DEV ICE PROCEDURES Final Result documented in this encounter Visit Diagnoses Not on filedocumented in this encounter Care Teams Assembler Engine Relationship Specialty Start Date End Date Yusuf Elliott MD [address] [place] [phone] PCP - General 07/15/12 documented as of this encounter
== END 2024-10-06 14:19 | disposition home or self-care (01) ==
PROVIDERS: PCP Internal Medicine; Visit Provider Hospitalist
DX: J96.11 Chronic respiratory failure with hypoxia (principal); J41.0 Simple chronic bronchitis
CPT/HCPCS: 99214

== ENCOUNTER → 2024-10-06 13:57 | Outpatient (BNVA) | payer MEDICARE, SELFPAY | PROVIDERS: PCP Internal Medicine; Visit Provider Hospitalist | DX: M75.42 Impingement syndrome of left shoulder (principal); M25.811 Other specified joint disorders, right shoulder; M25.511 Pain in right shoulder; M25.512 Pain in left shoulder; J96.11 Chronic respiratory failure with hypoxia; J41.0 Simple chronic bronchitis | CPT/HCPCS: 20610; 99212; J1010; J2003 ==

== ENCOUNTER 2024-10-06 14:48 | Outpatient (AMB) | payer MEDICARE, SELFPAY ==
[2024-10-06 14:56] VITALS: BMI 23.4
--- NOTE | 2024-10-06 14:56 | MHC.OFFVIS ---
Vital Signs 10/06/24 14:56 Height 5 ft 11 in Weight 167 lb 8 oz BMI 23.4 Intake Visit Reasons: Bilateral shoulder pain Intake Note: Stu is an 89 year old male who presents with complaints of bilateral shoulder pains. He describes his pains as sharp nature. He has done physical therapy exercises which aggravated his pain. He has also tried Tylenol and anti-inflammatory medicines which gave him minimal relief. He wishes to hold off on surgery if at all possible. Allergies codeine Allergy (Severe, Verified 10/06/24 14:56) Shakes morphine Allergy (Severe, Verified 10/06/24 14:56) Shakes tetracycline Allergy (Severe, Verified 10/06/24 14:56) Hallucinations Contrast Dye Allergy (Severe, Uncoded 10/06/24 14:56) Itching Erythromycin Allergy (Severe, Uncoded 10/06/24 14:56) Rash and Hives Medication List - Last Reconciled 10/07/24 by Raymond Fischer MD ascorbic acid (vitamin C) mg PO aspirin 81 mg PO DAILY atorvastatin 80 mg PO DAILY Breo Ellipta 100-25 mcg/dose (fluticasone furoate-vilanterol) 1 ea inhalation DAILY NS carvedilol 25 mg PO BID cholecalciferol (vitamin D3) 25 mcg PO DAILY coenzyme Q10 10 mg PO TID cyanocobalamin (vitamin B-12) 2,500 mcg PO DAILY dapagliflozin propanediol (Farxiga) 10 mg PO DAILY gabapentin 300 mg PO Q8H naltrexone 50 mg PO DAILY nitroglycerin mg sublingual omega-3 fatty acids (Fish Oil Concentrate) 1,000 mg PO DAILY potassium chloride ER 10 mEq PO DAILY rivaroxaban (Xarelto) 20 mg PO DAILY sacubitril-valsartan 49-51 mg (Entresto) 1 tab PO BID semaglutide (Rybelsus) 3 mg PO DAILY sulfasalazine 0.5 grams PO DAILY torsemide 20 mg PO BID PFSH Medical History Chronic respiratory failure ARLEEN treated with BiPAP COVID-19 COPD (chronic obstructive pulmonary disease) Social History Patient Tobacco Use Status: Former Tobacco user Tobacco use type: Cigarette Years Smoked: 25 years ago Physical Exam Vital Signs: BMI result Body Mass Index 23.4 Const Other: Well-nourished well-developed very friendly male awake alert and oriented x3 in no acute distress Extrem Other: Bilateral shoulder examination shows forward flexion to 160 degrees, external rotation to 40 degrees, internal rotation to 50 degrees, positive impingement signs, 4+ out of 5 strength with supraspinatus testing, no instability Office Procedures AMB Joint Injection/Aspiration Joint Injection/Aspiration Primary Site: right shoulder Prep: site was prepped using aseptic technique Injected: 40 mg of, DepoMedrol and 1% plain lidocaine Procedure: The patient tolerated the procedure well Coding 43552 - Large joint Procedure code (CPT) selection complete AMB Joint Injection/Aspiration Joint Injection/Aspiration Primary Site: left shoulder Prep: site was prepped using aseptic technique Injected: 40 mg of, DepoMedrol and 1% plain lidocaine Procedure: The patient tolerated the procedure well Coding 35492 - Large joint Procedure code (CPT) selection complete Assessment & Plan Assessment & Plan (1) Impingement syndrome of left shoulder: Code(s): M75.42 - Impingement syndrome of left shoulder Category: Medical (2) Impingement of right shoulder: Code(s): M25.811 - Other specified joint disorders, right shoulder Category: Medical (3) Bilateral shoulder pain: Code(s): M25.511 - Pain in right shoulder; M25.512 - Pain in left shoulder Plan Mr. Carranza presents with bilateral shoulder pains due to impingement syndrome. The risks and benefits of bilateral shoulder cortisone injections were discussed at length with the patient. The patient wished to proceed. He tolerated the injections well. He will continue with his home stretching program. He will contact me prior to his follow-up appointment in 3 months should any questions or concerns arise. Feel free to call me at any time should questions regarding his orthopedic management arise. I spent 21 minutes in reviewing the patient's records and imaging studies, seeing the patient and documenting in the medical record. Orders: Orders AMB Joint Injection/Aspiration 10/06/24 M75.42 - Impingement syndrome of left shoulder AMB Joint Injection/Aspiration 10/06/24 M25.811 - Other specified joint disorders, right shoulder Coding Level of Care Code Est Pt Level 3 (10167) Complex EM visit Add On G2211 Diagnoses Impingement syndrome of left shoulder M75.42 Impingement of right shoulder M25.811 Bilateral shoulder pain M25.511; M25.512 CPT Codes Coding - 48136 Large joint: 83951 - Large joint ([id number]) Coding - 31263 Large joint: 77016 - Large joint ([id number])
--- OUTSIDE RECORDS SUMMARY | 2024-10-06 17:03 | XMS_ITS | Data Portability ---
Author Organization [place] [facility], [id number] Address [address] [place] [address] Assessment Encounter Date Assessment Date Assessment LastModified by Organization Details LastModified Time 06/17/2024 06/17/2024 -patient likely with lumbar radiculopathy from spinal/neuroforam inal stenosis at multiple levels of his lumbar spine, including severe central canal stenosis L3/4 and L4/5, and severe neuroforaminal stenosis at L5/S1 bilaterally -will plan for L5/S1 (L>R) interlaminar BENEDICTO to help with his radicular pain, of note, patient has partial lumbarization of S1 -patient is on xarelto for h/o a-fib, will obtain cardiology clearance to hold medication prior to procedure -continue HEP/PT -continue tylenol 40 minutes was used for chart review, interviewing/exam ining, and counseling the patient during today's visit, and patient denies having any other further questions/concern s Not available 06/17/2024 10:36:34 Plan of Treatment Reminders Order Date Submit Date Provider Last Modified By Organization Details Last Modified Time Details Appointments None record ed. Lab None record ed. Referral None record ed. Procedures None record ed. Surgeries None record ed. Imaging None record ed. Medication Orders None record ed. Patient TargetsNo targets recorded. Patient InstructionsNo instructions recorded. Reason for Referral None Reported. Results Created Date Observation Date Name Description Value Unit Range Abnormal Flag Note LastModifiedBy Organization Detail LastModifiedTime 07/15/20 24 07/15/2024 POCT GLUCO SE, BLOOD glucose poct 176 mg/dL 70-100 high Not Available [address], [address], 07/15/2024 07:21:09 07/15/20 24 07/15/2024 POCT GLUCO SE, BLOOD note See Report [facility], [address], [place], [place] [address] Not Available [address], [address], 07/15/2024 07:21:09 09/02/19 25 09/02/2024 POCT GLUCO SE, BLOOD glucose poct 130 mg/dL 70-100 high Not Available [address], [address], 09/02/2024 08:22:35 09/02/19 25 09/02/2024 POCT GLUCO SE, BLOOD note See Report [facility], [address], [place] [address], [place] [address] Not Available [address], [address], 09/02/2024 08:22:35 07/04/[address], lumba r spine , w/o contr ast No observ ation record ed. [email or web address] Not Available 2023 09:21:37 07/15/20 24 H&P No observ ation record ed. [email or web address] [address], [address], 07/15/2024 07:21:38 07/15/20 24 07/15/2024 proce dures No observ ation record ed. [email or web address] [address], [address], 07/15/2024 10:08:13 07/15/20 24 07/15/2024 proce dures No observ ation record ed. [email or web address] [address], [address], 07/15/2024 10:08:14 07/15/20 24 07/15/2024 xr fluor o up to 1 hour See [facility] , a member of [employer] [facility] Name: LEDA Lewis Date of : 1934 Reason for Exam: pain Exam Date: 2023 [id number] EST Report Status : Final Orderi ng Provid er: GRYE ORTIZ PCP: JAH Quintanilla gs: Bj barriga spot images of the lumbos acral juncti on are submit ramon from the OR, used intrao perati vely by Dr. Ortiz during a pain manage ment proced ure. No radiol ogist was in attend ance. Fluoro scopy was provid ed in the OR by a radiol ogic techno logist . Cumula tive Air Kerma: 9.24 mGy IMPRES LOW: Impres low: 1. Intrao perati ve images of the lumbos acral juncti on. 2. Fluoro scopy provid ed in the OR. NC ------ -- FINAL REPORT ------ -- Dictat ed By: Yaritza Porter Dictat ed Date: 2023 11:43 ET Assign ed Physic reyna: Yaritza Porter Review ed and Electr onical ly Signed By: Yaritza Porter Signed Date: 2023 11:43 ET Workst ation ID: [id number] Transc ribed By: Self Edit Transc ribed Date: 2023 11:43 ET [email or web address], [address], 07/15/2024 12:26:11 09/02/1909/02/2024 proce dures No observ ation record ed. [address], [address], 09/02/2024 10:55:09 09/02/19 25 09/02/2024 proce dures No observ ation record ed. [email or web address] [address], [address], 09/02/2024 10:55:09 09/02/19 25 09/02/2024 xr fluor o up to 1 hour See Note [facility] , a [facility] Name: LEDA Lewis Date of : 1934 Reason for Exam: pain Exam Date: 2024 [id number] EST Report Status : Final Orderi ng Provid er: GREY ORTIZ PCP: JAH VEGA Fluoro scopic spot radiog raphs obtain ed during lumbos acral spine inject ion are submit ramon. No radiol ogist consul tation was reques ramon or provid ed during this proced ure and there is no radiol ogist profes sional charge . This report is genera ramon for docume carmela arrington es only. The dose for this proced ure was 5.76 mGy. PQRI CPT II G9500 ------ -- FINAL REPORT ------ -- Dictat ed By: Leda Carter Dictat ed Date: 2024 10:46 ET Assign ed Physic reyna: Leda Carter Review ed and Electr onical ly Signed By: Leda Carter Signed Date: 2024 10:46 ET Workst ation ID: [id number] Transc ribed By: Self Edit Transc ribed Date: 2024 10:46 ET [email or web address] [address], [address], 09/02/2024 10:55:09 Result Notes None recorded. Problems Name Problem SNOMED Code Status Onset Date Resolution Date Notes Provider Name and Address Organization Details Recorded Time Lumbar radiculopathy 075715418 Active 2023 Grey Ortiz MD null, [facility] 10:33:32 Degenerative lumbar spinal stenosis 288268570 Active 2023 Grey Ortiz MD null, [facility] 10:33:40 Problem Notes None recorded. Procedures Surgical History Date Name Laterality Status Provider Name and Address Organization Details Recorded Time coronary artery bypass graft completed Leslye Bonilla [facility] 06/17/2024 09:23:08 [facility] 06/17/2024 09:24:12 cardiac pacemaker procedure completed Leslye [facility] 06/17/2024 09:24:23 [facility] 09:25:06 hernia repair completed [facility] 06/17/2024 09:25:27 placement of stent in coronary artery completed [facility] 06/17/2024 09:26:15 Imaging Results Imaging Date Name Status LastModified by Qi [email or web address] Details LastModified Time 07/04/2024 CT, lumbar spine, w/o contrast completed [email or web address] Information not available 07/04/2024 09:21:37 07/15/2024 H&P completed [address], [address], 07/15/2024 07:21:38 07/15/2024 procedures completed [email or web address] [address], [address], 07/15/2024 10:08:13 07/15/2024 procedures completed [email or web address] [address], [address], 07/15/2024 10:08:14 07/15/2024 xr fluoro up to 1 hour completed [email or web address] [address], [address], 07/15/2024 12:26:11 09/02/2024 procedures completed [address], [address], 09/02/2024 10:55:09 09/02/2024 procedures completed [email or web address] [address], [address], 09/02/2024 10:55:09 09/02/2024 xr fluoro up to 1 hour completed [email or web address] [address], [address], 09/02/2024 10:55:09 Procedure Notes None recorded. Medical Equipment None Reported. Allergies Allergen ID Allergen Name Allergen Category Reaction Reaction Severity Criticality Documentation Date Start Date Code Code System Note Provider Name and Address Organization Details Recorded Time 474 Product containin g penicilli n (product) medicatio n Not available Not available Not available 06/17/2024 35904 8001 SNOMED Leslye Bonilla null, [facility] 4 09:05:04 475 tetracycl ine medicatio n Not available Not available Not available 06/17/2024 10073 RxNorm Leslye Bonilla null, [facility] 4 09:05:54 476 Iodinated contrast media (substanc e) medicatio n Not available Not available Not available 06/17/2024 83283 2004 SNOMED Leslye Bonilla null, [facility] 4 09:06:06 477 codeine medicatio n Not available Not available Not available 06/17/2024 2670 RxNorm Leslye Bonilla null, [facility] 4 09:06:15 478 clarithro mycin medicatio n Not available Not available Not available 06/17/2024 92350 RxNorm Leslye Bonilla null, [facility] 4 09:06:59 479 Prozac medicatio n Not available Not available Not available 06/17/2024 08677 RxNorm Leslye Bonilla null, [facility] 4 09:07:15 Medications Name Sig Start Date Stop Date Status Note LastModified by Organization Details LastModified Time atorvastati n 80 mg tablet TAKE 1 TABLET BY MOUTH EVERY DAY active Not Available Not Available No t Available carvedilol 25 mg tablet TAKE 1 TABLET BY MOUTH TWICE A DAY WITH FOOD active Not Available Not Available No t Available torsemide 20 mg tablet Take 1 tablet every day by oral route. active Not Available Not Available No t Available sulfasalazi ne 500 mg tablet TAKE 5 TABLETS TWICE A DAY active Not Available Not Available No t Available FreeStyle Lancets 28 gauge TEST BLOOD SUGARS ONCE DAILY DX E11.6 active Not Available Not Available No t Available spironolact one 25 mg tablet TAKE 1 TABLET BY MOUTH EVERY DAY 06/17 completed Not Available Not Available Not Available Roman-on Garlic Oil 1500 mg capsule Take by oral route. active Not Available Not Available No t Available Nitrostat 0.[address] by sublingua l route. active Not Available Not Available No t Available cephalexin 500 mg capsule TAKE 1 CAPSULE BY MOUTH TWICE A DAY FOR 10 DAYS 06/17 completed Not Available Not Available Not Available gabapentin 300 mg capsule TAKE 1 CAPSULE BY MOUTH 4 TIMES DAILY FOR 30 DAYS active Not Available Not Available No t Available Crestor 20 mg tablet Take 1 tablet every day by oral route. active Not Available Not Available No t Available vitamin E active Not Available Not Michelle ilable Not Available B Complex Vitamin active Not Available Not Available Not Available FreeStyle Lite Strips TEST ONCE DAILY active Not Available Not Available No t Available CoQ-10 active Not Available Not Availa ble Not Available naltrexone HCl (bulk) active Not Available Not Available N ot Available diclofenac 1 % topical gel APPLY 2 GRAMS TOPICALLY 4 TIMES PER DAY FOR 10 DAYS 06/17 completed Not Available Not Available Not Available rivaroxaban 20 mg tablet Take 1 tablet every day by oral route. active Not Available Not Available No t Available Breo Ellipta 100 mcg-25 mcg/dose powder for inhalation INHALE 1 PUFF EVERY DAY 06/17 completed Not Available Not Available Not Available Farxiga 10 mg tablet TAKE 1 TABLET BY MOUTH EVERY DAY active Not Available Not Available No t Available acetaminoph en 325 mg capsule Take by oral route. active Not Available Not Available No t Available Entresto 49 mg-51 mg tablet TAKE 1 TABLET BY MOUTH TWICE A DAY active Not Available Not Available No t Available aspirin 81 mg capsule Take 1 capsule every day by oral route. active Not Available Not Available No t Available Vitals Date Recorded Body weight Body mass index (BMI) Body height Heart rate Oxygen saturation Oxygen saturation in Arterial blood by Pulse oximetry Systolic blood pressure Diastolic blood pressure Provider Name and Address Organization Details Last Updated DateTime 4 06018.7 g 23.7 kg/m2 180.34 cm 71 /min 96 % 96 % 165 mm[Hg] 98 mm[Hg] Leslye Bonilla [facility] 4 09:03:16 Social History None recorded. Functional Status None recorded. Mental Status None recorded. Family History Nothing Reported. Medical History No medical history recorded. Past Encounters Encounter ID Performer Location Encounter Start Date Encounter Closed Date Diagnosis/Indication Diagnosis SNOMED-CT Code Diagnosis ICD10 Code Diagnosis Note [id number] Grey Ortiz MD [id number] [address] [place] [address] 06/17/2024 08:50:51 06/17/2024 10:39:31 Lumbar radiculopathy 051069183 M54.16 Degenerati ve lumbar spinal stenosis 449246698 M48.061 Health Concerns Section Related Observation LastModified by Organization Detai ls LastModified Time None Recorded Concern Status LastModified by Organization Details LastModified Time None Recorded Advance Directives Directive None Recorded Payers Encounter Date Sequence Insurance Name Policy Number Policy Murphy Covered Member ID Murphy Member ID Guarantor Name 06/17/2024 1 MEDICARE [place]: [employer] Leda Carranza [id number] Leda Dillon Notes Date Note Type Note Provider Name and Address Organization Details Recorded Time 06/17/2024 text/html Leda Carranza is a pleasant 89 year old male with h/o CHF, A-fib ON ANTI-COAGULATION, CAD s/p CABG/stents, CVA, DM, HTN, HLD who presents with several year history of lower back pain with radiation into bilateral legs (L>R). He does state that the pain has been worsening over the past 6 months. He denies any inciting events. Of note, patient is ON XARELTO. The pain is constant and id described as stabbing and burning in character. The current pain intensity is 10/10 at rest. He states that pain increases with prolonged standing and walking. He does find that he is constantly needing to rub his legs in the morning because of the pain. Lumbar flexion decreases the pain. Patient does report of radicular pain to the bilateral lower extremities (L>R) along the posterior aspect down to the level of the foot, and anterior aspect down the the mid schulz. He finds that the posterior aspect is worse than the pain going anteriorly. He does also report having numbness/tingling in the same distribution of where the pain is in his legs bilaterally. He also finds that he has been having weakness in his legs, but attributes a lot of this to the pain in his legs. Denies any bowel/bladder incontinence. No saddle anesthesia. He reports that performing activities of daily living is difficult. Patient has tried: chiropractor Current pain medications: tylenol, OTC NSAID's, CBD oil Previous Medications and doses tried/effect: gabapentin 300mg QID--no benefitPrevious Nerve Block or Injection: noneI personally reviewed prior radiological services. 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 Grey Ortiz MD null, [place] [facility] 06/17/2024 10:37:20
--- OUTSIDE RECORDS SUMMARY | 2024-10-06 17:03 | XMS_ITS | Clinical Summary ---
Author Organization [facility] Address [address] [place] [address] Care Team Providers Care Technical Support Consultant Name Role Phone Yusuf Elliott MD Primary Care Provider [phone] Allergies Active Allergy Reactions Criticality Noted Date [...] age to complete this topic Care Teams Technical Support Consultant Relationship Specialty Start Date End Date Yusuf Elliott MD [address] [place] [address] PCP - General Internal Medicine 10/10/19
--- OUTSIDE RECORDS SUMMARY | 2024-10-06 17:03 | XMS_ITS | Clinical Summary ---
Author Organization [address] [place] [address] Address [address] [place] [address] Phone Care Team Providers Care Pharmacy Technologist Name Role Phone Yusuf Elliott MD Primary Care Provider [phone] Allergies Active Allergy Reactions Criticality Noted Date [...] in place. Patient was seen at the [facility] advanced heart failure clinic. Patient denies any [...] Description 10/01/2024 9:45 AM EST Ancillary Procedure [facility] - [address] [place] [address] 09/02/2024 9:25 PM EST Ancillary Procedure [facility] - [address] [place] [address] 09/02/2024 7:40 AM EST - 09/02/2024 11:59 PM EST Hospital Encounter [facility] [address] [place] [address] Pain Discharge Disposition: Home or Self Care 09/02/2024 7:37 AM EST - 09/02/2024 11:59 PM EST Hospital Encounter [facility] [address] [place] [address] Grey Apodaca MD Radiculopathy, lumbar region Discharge Disposition: Home or Self Care 08/26/2024 8:10 AM EST Office Visit [facility] 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 (Primary Dx); Ischemic cardiomyopathy; Aneurysm of ascending aorta without rupture (CMS/HCC); Paroxysmal atrial fibrillation (CMS/HCC); SSS (sick sinus syndrome) (CMS/HCC); Primary hypertension; Mixed hyperlipidemia; ARLEEN (obstructive sleep apnea) 07/29/2024 12:00 PM EST Ancillary Procedure [facility] - [address] [place] [address] 07/25/2024 Telephone [facility] - [address] [place] [address] Pb Woodward MD Rapid Heart Rate 07/15/2024 7:23 AM EST - 07/15/2024 11:59 PM EST Hospital Encounter [facility] [address] [place] [address] Pain Discharge Disposition: Home or Self Care 07/15/2024 7:02 AM EST - 07/15/2024 11:59 PM EST Hospital Encounter [facility] [address] [place] [address] Grey Apodaca MD Radiculopathy, lumbar region Discharge Disposition: Home or Self Care 07/07/2024 Telephone [facility] [address] [place] [address] Denis Mackay MD [facility] Follow-up from Last 3 Months Immunizations Name Administration Dates Next Due Pfizer SARS-CoV-2 COVID-19, mRNA, LNP-S, preservative free 12/28/2020 Surgical History Surgery Date Site/Laterality Comments CORONARY ARTERY BYPASS GRAFT 2018 PROCEDURE: HISTORICAL CABG COLONOSCOPY W/ BIOPSIES 04/27/2017 PROCEDURE: UT COLONOSCOPY W/BIOPSY SINGLE/MULTIPLE; COMMENT: flexible, proximal to splenic flexure PACEMAKER IMPLANT 05/01/2016 PROCEDURE: HISTORICAL PACEMAKER OTHER SURGICAL HISTORY PROCEDURE: HISTORICAL ICD CATARACT EXTRACTION Bilateral PROCEDURE: HISTORICAL CATARACT REMOVAL COLONOSCOPY W/ BIOPSIES 04/01/2015 PROCEDURE: UT COLONOSCOPY W/BIOPSY SINGLE/MULTIPLE; COMMENT: flexible, proximal to splenic flexure FLEXIBLE SIGMOIDOSCOPY 11/01/2012 PROCEDURE: HISTORICAL FLEXIBLE SIGMOIDOSCOPY; COMMENT: dx, w/ or w/o collection of specimen(s) by brushing or washing (separate procedure) OTHER SURGICAL HISTORY 03/11/2012 PROCEDURE: UT ENDOSCOPY UPPER SMALL INTESTINE; COMMENT: including esophagus, stomach, and either the duodenum and/or jejunum as appropriate; dx, w/ or w/o collection of specimen(s) by brushing or washing (separate procedure) COLONOSCOPY W/ BIOPSIES 07/04/2010 PROCEDURE: UT COLONOSCOPY W/BIOPSY SINGLE/MULTIPLE; COMMENT: flexible, proximal to splenic flexure OTHER SURGICAL HISTORY PROCEDURE: UT PRQ TRLUML CORONARY STENT/ATH/ANGIO ADDL BRANCH HERNIA [...] 08/25/2020 DX:Paroxysmal atrial tac hycardia by electrocardiography ([facility]); COMMENT: ECG: paroxysmal atrial tachy. 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 07/24/2018 DX:Secondary osteoar thritis of left shoulder due to rotator cuff tear Dyspnea 08/25/2020 DX:Dyspnea Atypical chest pain 08/25/2020 DX:Atypical chest pain Ulcerative colitis ([facility]) DX: Ulcerative colitis ([facility]) Alcohol abuse, daily use 08/25/2020 DX:Alco hol abuse, daily use; COMMENT: beers & shots daily ARLEEN (obstructive sleep apnea) 08/25/2020 DX :ARLEEN (obstructive sleep apnea) Socrates-Colin breathing DX:Cheyn e-Colin breathing Dehydration DX:Dehydration Diabetes mellitus type 2, diet-controlled ([facility]) DX:Diabetes mellitus type 2, diet-controlled ([facility]) Gastroesophageal reflux disease DX:Gastroesophageal reflux disease; COMMENT: [...] Description 11/19/2024 10:00 AM EDT Ancillary Procedure [facility] - [address] [place] [address] 06/29/2025 11:00 AM EST Ancillary Procedure [facility] - [address] [place] [address] Health Maintenance Due Date Last Done Comments [...] this topic Medical Devices Implanted Type Area Physician Office Assistant Device Identifier Shelf Expiration Date Model / Serial / Lot [id number] Rahula 7 Hf-T Qp [id number] Implanted:11/2018 (Quantity not on file) Cardiac FORESTRY SCIENTIST-D ICD [employer] ILIVIA 7 HF-T QP / [id number] / Procedures Procedure Name Priority Date/Time Associated [...] period is included. Date Time Interrogation Session [id number] CV DEVICE CHECK Type Interrogation Session RemoteScheduled CV DEVICE CHECK Implantable Pulse Generator Physician Office Assistant BIO CV DEVICE CHECK Implantable Pulse Generator Type FORESTRY SCIENTIST-D CV DEVICE CHECK Implantable Pulse Generator Model Ilivia 7 HF-T QP CV DEVICE CHECK Implantable Pulse Generator Serial Number [id number] CV DEVICE CHECK Implantable Pulse Generator Implant Date 20190616 CV DEVICE CHECK Battery Remaining Percentage 14.00 CV DEVICE CHECK Battery Voltage 2.830 CV D EVICE CHECK Battery DECKER OPERATOR Trigger 2.500 CV DEVICE CHECK Battery Status Middle of Service CV DEVICE CHECK Capacitor Charge Time 10.500 CV DEVICE CHECK Salvador Statistic RA Percent Paced 81.00 CV DEVICE CHECK Salvador Statistic RV Percent Paced 100.00 CV DEVICE CHECK FORESTRY SCIENTIST Statistic LV Percent Paced 92.00 CV DEVICE CHECK FORESTRY SCIENTIST Statistic FORESTRY SCIENTIST Percent Paced 100.00 CV DEVICE CHECK Atrial Tachy Statistic AT/AF Liberty Percent 0.00 CV DEVICE CHECK Lead Channel [...] CV DEVICE CHECK Ventricular chambers paced during FORESTRY SCIENTIST pacing. BiV CV DEVICE CHECK Salvador Setting Lower Rate Limit 70 CV DEVICE CHECK Salvador Setting AT Mode Switch Rate 160 CV DEVICE CHECK Salvador Setting Maximum Tracking Rate 130 CV DEVICE CHECK Salvador Setting Maximum Sensor Rate 120 CV DEVICE CHECK Salvador Setting PAV Delay 120 CV DEVICE CHECK Salvador Setting STANLEY Delay 80 CV DEVICE CHECK FORESTRY SCIENTIST LV-RV Delay 0 CV D EVICE CHECK [...] Signed Date: 09/02/2024 10:46 ET Workstation ID: [id number] Transcribed By: Self Edit Transcribed Date: 09/02/2024 [...] Signed Date: 09/02/2024 10:46 ET Workstation ID: [id number] Transcribed By: Self Edit Transcribed Date: 09/02/2024 10:46 ET us Grey Apodaca MD IMG FLUOROSCOPY PROCEDURES Fin al Result * (ABNORMAL) POCT Glucose, blood (09/02/2024 7:52 AM EST) Only the most recent of2 resultswithin the time period is included. Glucose POCT 130(H) 70 - 100 mg/dL 09/02/2024 8:19 AM EST [facility] Blood Capillary blood specimen / Unknown 09/02/2024 7:52 AM EST 09/02/2024 8:20 AM EST us Grey Apodaca MD LAB POINT OF CARE TE ST DOCKED DEVICE UNSOLICITED RESULTS Final Result [facility] ([facility]) [facility] [address] [place] [address], [place] [phone] * (ABNORMAL) Lipid panel (06/20/2024 3:15 PM [...] AM EST Performed at: ??01 - [facility] [address] ??[id number] Second Crusher: Meri Dillard MD, Phone: ??[phone] us Denis Mackay MD LAB BLOOD ORDERABLES [...] PM EST Performed at: ??01 - [facility] [address] ??[id number] Second Crusher: Meri Dillard MD, Phone: ??[phone] us Denis Mackay MD LAB BLOOD ORDERABLES Final Res ult [facility] 1 from Last 3 Months or Most Recently Relevant to Health Maintenance Insurance MEDICARE [facility] Care Teams Pharmacy Technologist Relationship Specialty Start Date End Date Yusuf Elliott MD [address] [place] [phone] [facility] - General 07/15/12
--- OUTSIDE RECORDS SUMMARY | 2024-10-06 17:03 | XMS_ITS | Encounter Summary ---
Author Organization [facility] Address [address] [place] [address] Care Team Providers Care Inspector Wire Rope Name Role Phone Yusuf Elliott MD Primary Care Provider [phone] Encounter Details Date Type Department Care Team (Late st Contact Info) Description 10/01/2024 9:45 AM EST Ancillary Procedure [facility] [address] [facility] [address] [place] [address] Social History Tobacco Use Types Packs/Day Years [...] Description 11/19/2024 10:00 AM EDT Ancillary Procedure [facility] [address] [facility] [address] [place] [address] 06/29/2025 11:00 AM EST Ancillary Procedure [facility] [address] [facility] [address] [place] [address] documented as of this encounter Procedures Procedure Name Priority Date/Time Associated Diagnosis Comments CARDIAC DEVICE CHECK- REMOTE- MURJ Routine 10/01/2024 9:41 AM EST documented in this encounter Results * Cardiac device check - Remote- MURJ (10/01/2024 9:41 AM EST) Date Time Interrogation Session [id number] CV DEVICE CHECK Type Interrogation Session RemoteScheduled CV DEVICE CHECK Implantable Pulse Generator Legal Specialist BIO CV DEVICE CHECK Implantable Pulse Generator Type FARMWORKER DAIRY-D CV DEVICE CHECK Implantable Pulse Generator Model Ilivia 7 HF-T QP CV DEVICE CHECK Implantable Pulse Generator Serial Number [id number] CV DEVICE CHECK Implantable Pulse Generator Implant Date 20190616 CV DEVICE CHECK Battery Remaining Percentage 14.00 CV DEVICE CHECK Battery Voltage 2.830 CV D EVICE CHECK Battery PRODUCTION QUALITY ANALYST Trigger 2.500 CV DEVICE CHECK Battery Status Middle of Service CV DEVICE CHECK Capacitor Charge Time 10.500 CV DEVICE CHECK Salvador Statistic RA Percent Paced 81.00 CV DEVICE CHECK Salvador Statistic RV Percent Paced 100.00 CV DEVICE CHECK FARMWORKER DAIRY Statistic LV Percent Paced 92.00 CV DEVICE CHECK FARMWORKER DAIRY Statistic FARMWORKER DAIRY Percent Paced 100.00 CV DEVICE CHECK Atrial Tachy Statistic AT/AF Carmen Percent 0.00 CV DEVICE CHECK Lead Channel [...] CV DEVICE CHECK Ventricular chambers paced during FARMWORKER DAIRY pacing. BiV CV DEVICE CHECK Salvador Setting Lower Rate Limit 70 CV DEVICE CHECK Salvador Setting AT Mode Switch Rate 160 CV DEVICE CHECK Salvador Setting Maximum Tracking Rate 130 CV DEVICE CHECK Salvador Setting Maximum Sensor Rate 120 CV DEVICE CHECK Salvador Setting PAV Delay 120 CV DEVICE CHECK Salvador Setting STANLEY Delay 80 CV DEVICE CHECK FARMWORKER DAIRY LV-RV Delay 0 CV D EVICE CHECK [...] on filedocumented in this encounter Care Teams Inspector Wire Rope Relationship Specialty Start Date End Date Yusuf Elliott MD [address] [place] [phone] PCP - General 07/15/12 documented as of this encounter
== END 2024-10-06 15:11 | disposition home or self-care (01) ==
PROVIDERS: PCP Internal Medicine; Visit Provider Orthopaedic Surgery
DX: M75.42 Impingement syndrome of left shoulder (principal); M25.811 Other specified joint disorders, right shoulder; M25.511 Pain in right shoulder; M25.512 Pain in left shoulder
CPT/HCPCS: 20610; 99213

== ENCOUNTER 2025-01-08 13:28 | Outpatient (AMB) | payer MEDICARE, SELFPAY ==
[2025-01-08 13:33] VITALS: BMI 23.3
--- NOTE | 2025-01-08 13:33 | MHC.OFFVIS ---
Vital Signs 01/08/25 13:33 Height 5 ft 11 in Weight 167 lb BMI 23.3 Intake Visit Reasons: Inj-B/L shoulder last inj 10/06/24 Intake Note: Stu is an 89 year old male who presents with complaints of bilateral shoulder pains. He describes his pains as sharp in nature. He has had cortisone injections in the past which gave him fairly good relief. He has tried Tylenol and anti-inflammatory medicines which gave him minimal relief. He would like to hold off on surgery if at all possible. Allergies codeine Allergy (Severe, Verified 01/08/25 13:39) Shakes morphine Allergy (Severe, Verified 01/08/25 13:39) Shakes tetracycline Allergy (Severe, Verified 01/08/25 13:39) Hallucinations Contrast Dye Allergy (Severe, Uncoded 01/08/25 13:39) Itching Erythromycin Allergy (Severe, Uncoded 01/08/25 13:39) Rash and Hives Medication List - Last Reconciled 01/10/25 by Raymond Fischer MD ascorbic acid (vitamin C) mg PO aspirin 81 mg PO DAILY Breo Ellipta 100-25 mcg/dose (fluticasone furoate-vilanterol) 1 ea inhalation DAILY NS carvedilol 25 mg PO BID cholecalciferol (vitamin D3) 25 mcg PO DAILY coenzyme Q10 10 mg PO TID cyanocobalamin (vitamin B-12) 2,500 mcg PO DAILY dapagliflozin propanediol (Farxiga) 10 mg PO DAILY gabapentin 300 mg PO Q8H naltrexone 50 mg PO DAILY nitroglycerin mg sublingual omega-3 fatty acids (Fish Oil Concentrate) 1,000 mg PO DAILY potassium chloride ER 10 mEq PO DAILY pregabalin 25 mg PO TID rivaroxaban (Xarelto) 20 mg PO DAILY rosuvastatin 40 mg PO DAILY sacubitril-valsartan 49-51 mg (Entresto) 1 tab PO BID semaglutide (Rybelsus) 3 mg PO DAILY sulfasalazine 0.5 grams PO DAILY torsemide 20 mg PO BID PFSH Medical History Chronic respiratory failure ARLEEN treated with BiPAP COVID-19 COPD (chronic obstructive pulmonary disease) Social History Patient Tobacco Use Status: Former Tobacco user Tobacco use type: Cigarette Years Smoked: 25 years ago Physical Exam Vital Signs: BMI result Body Mass Index 23.3 Const Other: Well-nourished well-developed very friendly male awake alert and oriented x3 in no acute distress Extrem Other: Bilateral upper extremity examination shows good capillary refill, no skin lesions noted, normal sensation light touch Bilateral shoulder examination shows positive impingement signs, pain with range of motion, 4+ out of 5 strength with supraspinatus testing, no instability Office Procedures AMB Joint Injection/Aspiration Joint Injection/Aspiration Primary Site: left shoulder Prep: site was prepped using aseptic technique Injected: 40 mg of, DepoMedrol and 1% plain lidocaine Procedure: The patient tolerated the procedure well Coding - Large joint Procedure code (CPT) selection complete AMB Joint Injection/Aspiration Joint Injection/Aspiration Primary Site: right shoulder Prep: site was prepped using aseptic technique Injected: 40 mg of, DepoMedrol and 1% plain lidocaine Procedure: The patient tolerated the procedure well Coding - Large joint Procedure code (CPT) selection complete Assessment & Plan Assessment & Plan (1) Impingement syndrome of left shoulder: Code(s): M75.42 - Impingement syndrome of left shoulder Category: Medical (2) Impingement of right shoulder: Code(s): M25.811 - Other specified joint disorders, right shoulder Category: Medical Plan Mr. Carranza presents with bilateral shoulder pains due to impingement syndrome. The risks and benefits of bilateral shoulder cortisone injections were discussed at length with the patient. The patient wished to proceed. He tolerated the injections well. He will continue with his home stretching program. He will contact me prior to his follow-up appointment in 3 months should any questions or concerns arise. Feel free to call me at any time should questions regarding his orthopedic management arise. I spent 20 minutes in reviewing the patient's records and imaging studies, seeing the patient and documenting in the medical record. Orders: Orders AMB Joint Injection/Aspiration 01/08/25 M75.42 - Impingement syndrome of left shoulder AMB Joint Injection/Aspiration 01/08/25 M25.811 - Other specified joint disorders, right shoulder Coding Level of Care Code Est Pt Level 3 (15154) Complex EM visit Add On G2211 Diagnoses Impingement syndrome of left shoulder M75.42 Impingement of right shoulder M25.811 CPT Codes Coding - 41347 Large joint: 84744 - Large joint ([id number]) Coding - 86192 Large joint: 33960 - Large joint ([id number])
--- OUTSIDE RECORDS SUMMARY | 2025-01-08 13:36 | XMS_ITS | Data Portability ---
Author Organization [place] [facility] [employer] [facility] [employer] [facility], [id number] Address [address] [place] [address] Assessment Encounter Date Assessment Date Assessment LastModified [...] denies having any other further questions/concern s [email or web address] Not available 06/17/2024 10:36:34 Plan of Treatment Reminders Order Date Submit Date Provider Last Modified By Organization Details Last Modified Time Details Appointments TAWANNA Barriga 15 025 12:45PM Grey Ortiz MD Not available Not available Not available Lab None record ed. Referral None record [...] poct 176 mg/dL 70-100 high Not Available [address], [address], 07/15/2024 07:21:09 07/15/20 24 07/15/2024 POCT GLUCO SE, BLOOD note See Report [facility], [address], [place], [place] [address] Not Available [address], [address], 07/15/2024 07:21:09 09/02/19 25 09/02/2024 POCT GLUCO SE, BLOOD glucose poct 130 mg/dL 70-100 high Not Available [address], [address], 09/02/2024 08:22:35 09/02/19 25 09/02/2024 POCT GLUCO SE, BLOOD note See Report [facility], [address], [place] [address] Not Available [address], [address], 09/02/2024 08:22:35 10/29/19 25 10/28/2024 POCT GLUCO SE, BLOOD glucose poct 119 mg/dL 70-100 high Not Available [address], [address], 10/28/2024 09:15:44 10/29/19 25 10/28/2024 POCT GLUCO SE, BLOOD note See Report high [facility], [address], [place], [place] [address] Not Available [address], [address], 10/28/2024 09:15:44 07/04/[address], lumba r spine , w/o contr ast No observ ation record ed. [email or web address] Not Available 2023 09:21:37 07/15/20 24 H&P No observ ation record ed. [address], [address], 07/15/2024 07:21:38 07/15/20 24 07/15/2024 proce dures No observ ation record ed. [email or web address] [address], [address], 07/15/2024 10:08:13 07/15/20 24 07/15/2024 proce dures No observ ation record ed. [email or web address] [address], [address], 07/15/2024 10:08:14 07/15/20 24 07/15/2024 xr fluor o up to [address] [facility] , a [facility] Name: LEDA Lewis Date of : 1934 Reason for Exam: pain Exam Date: 2023 [id number] EST Report Status : Final Orderi ng Provid er: GREY ORTIZ PCP: JAH Quintanilla gs: Bj barriga [...] Date: 2023 11:43 ET Workst ation ID: SFRP [id number] Transc ribed By: Self Edit Transc ribed Date: 2023 11:43 ET [email or web address] [address], [address], 07/15/2024 12:26:11 09/02/19 25 09/02/2024 proce dures No observ ation record ed. [email or web address] [address], [address], 09/02/2024 10:55:09 09/02/19 25 09/02/2024 proce dures No observ ation record ed. [email or web address] [address], [address], 09/02/2024 10:55:09 09/02/19 25 09/02/2024 xr fluor o up to [address] [facility] , a member of [employer] [facility] Name: LEDA Lewis Date of : 1934 Reason for Exam: pain Exam Date: 2024 [id number] EST Report Status : Final Orderi ng Provid er: GREY ORTIZ PCP: JAH VEGA Fluoro scopic spot radiog raphs obtain ed during lumbos acral spine inject ion are submit ramon. No radiol ogist consul tation was reques ramon or provid ed during this proced ure and there is no radiol ogist profes sional charge . This report is genera ramon for antonieta arrington es only. The dose for this proced ure was 5.76 mGy. PQRI CPT II G9500 ------ -- FINAL REPORT ------ -- Dictat ed By: Leda Carter Dictat ed Date: 2024 10:46 ET Assign ed Physic reyna: Leda Carter Review ed and Electr onical ly Signed By: Leda Carter Signed Date: 2024 10:46 ET Workst ation ID[facility] Transc ribed By: Self Edit Transc ribed Date: 2024 10:46 ET [email or web address] [facility] [address] [place], [address], 09/02/2024 10:55:09 Result Notes None recorded. Problems Name Problem SNOMED Code Status Onset Date Resolution Date Notes Provider Name and Address Organization Details Recorded Time Lumbar radiculopathy 088277834 Active 2023 Grey Ortiz MD null, [facility] 10:33:32 Degenerative lumbar spinal stenosis 259213619 Active 2023 Grey Ortiz MD null, [facility] 10:33:40 Problem Notes None recorded. Procedures Surgical History Date Name Laterality Status Provider Name and Address Organization Details Recorded Time coronary artery bypass graft [place] [facility] [place]17/20[place] 09:23:08 colonoscopy completed [facility] [place] 06/17/2024 09:24:12 cardiac pacemaker procedure completed [facility] [place] 06/17/2024 09:24:23 extraction of cataract completed [facility] [place] 06/17/2024 09:25:06 hernia repair completed [facility] [place] 06/17/2024 09:25:27 placement of stent in coronary artery [place] [facility] [place] 06/17/2024 09:26:15 Imaging Results None recorded. Procedure Notes None recorded. Medical Equipment None Reported. Allergies Allergen ID Allergen Name Allergen Category Reaction Reaction Severity Criticality Documentation Date Start Date Code Code System Note Provider Name and Address Organization Details Recorded Time 474 Product containin g penicilli n (product) medicatio n Not available Not available Not available 06/17/2024 41165 8001 SNOMED Leslye Bonilla [facility] 09:05:04 475 tetracycl ine medicatio n Not available Not available Not available 06/17/2024 99057 RxNorm Leslyecabrera Bonilla [facility] 09:05:54 476 Iodinated contrast media (substanc e) medicatio n Not available Not available Not available 06/17/2024 84662 2004 SNOMED Leslye long, [facility] 4 09:06:06 477 codeine medicatio n Not available Not available Not available 06/17/2024 267 RxNorm Leslye Bonilla null, [facility] 4 09:06:15 478 clarithro mycin medicatio n Not available Not available Not available 06/17/2024 60394 RxNorm Leslye Bonilla null, [facility] 4 09:06:59 479 Prozac medicatio n Not available Not available Not available 06/17/2024 73190 RxNorm Leslye long, [facility] 4 09:07:15 Medications Name Sig Start [...] TAKE 1 CAPSULE BY MOUTH 4 TIMES A DAY NEEDED FOR PAIN active Not Available Not Available No t Available rosuvastati n 40 mg tablet TAKE 1 TABLET BY MOUTH 1 TIME EACH DAY. active Not Available Not Available No t Available Crestor 20 mg tablet Take 1 tablet every day by oral route. active Not Available Not Available No t Available pregabalin 25 mg capsule TAKE 1 CAPSULE BY MOUTH THREE TIMES A DAY 2024 active Not Available Not Available Not Avai lable vitamin E active Not Available Not Michelle [...] completed Not Available Not Available Not Available Xarelto 20 mg tablet TAKE 1 TABLET (20 MG TOTAL) BY MOUTH DAILY WITH DINNER active Not Available Not Available No t [...] Not Available Not Available No t Available Rybelsus 7 mg tablet TAKE 1 TABLET BY MOUTH DAILY,X30 DAYS 30 MINS BEFORE FIRST FOOD, BEVERAGE, OR OTHER ORAL MEDS active Not Available Not Available No t [...] Address Organization Details Last Updated DateTime 4 33993.7 g 23.7 kg/m2 180.34 cm 71 /min 96 % 96 % 165 mm[Hg] 98 mm[Hg] Leslye Bonilla [facility] 4 09:03:16 Social History None recorded. Functional Status None recorded. Mental Status None recorded. Family History Nothing Reported. Medical History No medical history recorded. Past Encounters Encounter ID Performer Location Encounter Start Date Encounter Closed Date Diagnosis/Indication Diagnosis SNOMED-CT Code Diagnosis ICD10 Code Diagnosis Note [id number] Grey Ortiz MD [id number] [facility] [address] [facility] [place] [address] 06/17/2024 08:50:51 06/17/2024 10:39:31 Lumbar radiculopathy 163631655 M54.16 Degenerati ve lumbar spinal stenosis 850564769 M48.061 Health Concerns Section Related Observation LastModified by Organization Detai ls LastModified Time None Recorded Concern Status LastModified by Organization Details LastModified Time None Recorded Advance Directives Directive None Recorded Payers Encounter Date Sequence Insurance Name Policy Number Policy Mruphy Covered Member ID Murphy Member ID Guarantor Name 06/17/2024 1 MEDICARE B-[place]: [employer] Leda Carranza [id number] Leda Carranza Notes Date Note Type Note Provider Name and Address Organization Details Recorded Time 06/17/2024 text/html eLda Carranza is a pleasant 89 year old [...] roots. Grey Ortiz MD null, [facility] 06/17/2024 10:37:20
== END 2025-01-08 14:03 | disposition home or self-care (01) ==
LOC: HO.HOS 13:29
PROVIDERS: PCP Internal Medicine; Visit Provider Orthopaedic Surgery
DX: M75.42 Impingement syndrome of left shoulder (principal); M25.811 Other specified joint disorders, right shoulder
CPT/HCPCS: 20610; 99213

== ENCOUNTER → 2025-01-08 13:28 | Outpatient (BNVA) | payer MEDICARE, SELFPAY | PROVIDERS: PCP Internal Medicine; Visit Provider Orthopaedic Surgery | DX: M75.42 Impingement syndrome of left shoulder (principal); M25.811 Other specified joint disorders, right shoulder | CPT/HCPCS: 20610; 99212; J1010; J2003 ==

== ENCOUNTER 2025-04-14 13:27 | Outpatient (AMB) | payer MEDICARE, SELFPAY ==
--- NOTE | 2025-04-14 13:30 | A.OFFVIS_ITS ---
Vital Signs 04/14/25 13:33 Height 5 ft 10 in Weight 160 lb BMI 23.0 Intake Visit Reasons: Inj-B/L shoulder last inj 01/08/25 Intake Note: Stu is a 89 year old male right hand dominant who presents today for an injection in his Bilateral shoulder, last injection 01/08/25. At today's visit he states that the last injection did give relief but wore off. He describes hi s pains as sharp in nature. He has tried Tylenol and anti-inflammatory medicines which gave him mild relief. He wishes to hold off on surgery if at all possible. Allergies codeine Allergy (Severe, Verified 04/14/25 13:33) Shakes morphine Allergy (Severe, Verified 04/14/25 13:33) Shakes tetracycline Allergy (Severe, Verified 04/14/25 13:33) Hallucinations Contrast Dye Allergy (Severe, Uncoded 01/08/25 13:39) Itching Erythromycin Allergy (Severe, Uncoded 01/08/25 13:39) Rash and Hives Medication List - Last Reconciled 04/14/25 by Raymond Fischer MD ascorbic acid (vitamin C) mg PO aspirin 81 mg PO DAILY Breo Ellipta 100-25 mcg/dose (fluticasone furoate-vilanterol) 1 ea inhalation DAILY NS carvedilol 25 mg PO BID cholecalciferol (vitamin D3) 25 mcg PO DAILY coenzyme Q10 10 mg PO TID cyanocobalamin (vitamin B-12) 2,500 mcg PO DAILY dapagliflozin propanediol (Farxiga) 10 mg PO DAILY gabapentin 300 mg PO Q8H naltrexone 50 mg PO DAILY nitroglycerin mg sublingual omega-3 fatty acids (Fish Oil Concentrate) 1,000 mg PO DAILY potassium chloride ER 10 mEq PO DAILY pregabalin 25 mg PO TID rivaroxaban (Xarelto) 20 mg PO DAILY rosuvastatin 40 mg PO DAILY sacubitril-valsartan 49-51 mg (Entresto) 1 tab PO BID semaglutide (Rybelsus) 3 mg PO DAILY sulfasalazine 0.5 grams PO DAILY torsemide 20 mg PO BID PFSH Medical History Chronic respiratory failure ARLEEN treated with BiPAP COVID-19 COPD (chronic obstructive pulmonary disease) Social History Patient Tobacco Use Status: Former Tobacco user Tobacco use type: Cigarette Years Smoked: 25 years ago Physical Exam Const Other: Well-nourished well-developed very friendly male awake alert and oriented x3 in no acute distress Extrem Other: Bilateral upper extremity examination shows good capillary refill, no skin lesions noted, normal sensation light touch Bilateral shoulder examination shows 4/5 strength with supraspinatus testing, positive impingement signs, no instability Office Procedures AMB Joint Injection/Aspiration Joint Injection/Aspiration Primary Site: left shoulder Prep: site was prepped using aseptic technique Injected: 40 mg of, DepoMedrol and 1% plain lidocaine Procedure: The patient tolerated the procedure well Coding - Large joint Procedure code (CPT) selection complete AMB Joint Injection/Aspiration Joint Injection/Aspiration Primary Site: right shoulder Prep: site was prepped using aseptic technique Injected: 40 mg of, DepoMedrol and 1% plain lidocaine Procedure: The patient tolerated the procedure well Coding - Large joint Procedure code (CPT) selection complete Assessment & Plan Assessment & Plan (1) Impingement syndrome of left shoulder: Code(s): M75.42 - Impingement syndrome of left shoulder Category: Medical (2) Impingement of right shoulder: Code(s): M25.811 - Other specified joint disorders, right shoulder Category: Medical Plan Stu presents with bilateral shoulder pains due to impingement syndrome and possible rotator cuff tearing. The risks and benefits of bilateral shoulder cortisone injections were discussed at length with the patient. The patient wished to proceed. He tolerated the injections well. He will continue with his home stretching program. He will contact me prior to his follow-up appointment in 3 months should any questions or concerns arise. Feel free to call me at any time should questions regarding his orthopedic management arise. I spent 20 minutes in reviewing the patient's records and imaging studies, seeing the patient and documenting in the medical record. Orders: Orders AMB Joint Injection/Aspiration Today M75.42 - Impingement syndrome of left shoulder AMB Joint Injection/Aspiration Today M25.811 - Other specified joint disorders, right shoulder Coding Level of Care Code Est Pt Level 3 (08847) Complex EM visit Add On G2211 Diagnoses Impingement syndrome of left shoulder M75.42 Impingement of right shoulder M25.811 CPT Codes Coding - Large joint: 97072 - Large joint ([id number]) Coding - Large joint: 33510 - Large joint ([id number])
[2025-04-14 13:33] VITALS: BMI 23.0
--- OUTSIDE RECORDS SUMMARY | 2025-04-14 14:43 | XMS_ITS | Clinical Summary ---
Author Organization [address] [place] [address] [place] [phone] Phone Care Team Providers Care Package Lift Operator Name Role Phone Yusuf Elliott MD Primary Care Provider [phone] Allergies Active Allergy Reactions Criticality Noted Date [...] TAKE 1 TABLET BY MOUTH EVERY DAY 05/21/20 23 Active nitroglycerin (NITROSTAT) 0.[address] 1 Tablet under the tongue every 5 minutes as needed for Chest pain. 03/27/20 23 Active gabapentin (NEURONTIN) 300 mg capsule Take 1 Capsule by mouth as needed. 12/06/19 23 Active torsemide (DEMADEX) 20 mg tablet Take 1 Tablet by mouth 2 times daily. 05/30/20 22 Active acetaminophen (TYLENOL) 325 mg tablet Take 2 Tablets by mouth every 6 hours as needed. Active naltrexone HCl (NALTREXONE ORAL) Take 5.5 mg by mouth daily. Active aspirin (ASPIR-81 ORAL) Take 81 mg by mouth daily. Active ubidecarenone (COQ-10 ORAL) 1 Tablet daily. 10/21/19 14 Active GARLIC ORAL 1 Tablet daily. Active sulfaSALAzine (AZULFIDINE) 500 mg tablet Take 5 Tablets by mouth 2 times daily. Active vitamin E acetate (VITAMIN E ORAL) Take 1,000 mg by mouth daily. 03/20/20 17 Active VITAMIN B COMPLEX ORAL 1 Tablet daily. 12/09/19 20 Active rivaroxaban (XARELTO) 20 mg tablet Take 1 tablet (20 mg total) by mouth 1 (one) time each day with dinner. Take with food. 90 tablet 3 06/17/20 24 Active semaglutide (Rybelsus) 7 mg tablet Take 1 tablet (7 mg total) by mouth 1 (one) time each day before breakfast. Active Entresto 49-51 mg per tablet TAKE 1 TABLET BY MOUTH TWICE A DAY 180 tablet 2 09/03/19 25 Active ibuprofen (ADVIL,MOTRIN) 200 mg tablet Take 1 tablet (200 mg total) by mouth every 6 (six) hours if needed. Active carvediloL (COREG) 25 mg tablet Take 1.5 tablets twice a day 270 tablet 2 03/16/20 25 Active rosuvastatin (CRESTOR) 40 mg tablet TAKE 1 TABLET BY MOUTH 1 TIME EACH DAY. 90 tablet 1 03/19/20 25 Active carvediloL (COREG) 25 mg tablet Take 1 tablet (25 mg total) by mouth 2 (two) times a day with meals. 180 tablet 2 07/07/20 24 025 Discontinued(Re order) rosuvastatin (CRESTOR) 40 mg tablet Take 1 tablet (40 mg total) by mouth 1 (one) time each day. 90 each 1 08/26/19 25 025 Discontinued Active Problems Problem Noted Date Diagnosed Date Ascending aortic aneurysm ([facility] V24) 08/26/19 25 Bifascicular block 11/08/2021 Diabetes mellitus type 2, di et-controlled ([facility] V24, [facility] V28) 11/08/2021 Acid reflux 08/25/2020 Alcohol abuse, daily use 08/25/2020 Atrial fibrillation ([facility] V24, [facility] V28) 0 08/25/2020 Overview (05/15/2024): Last Assessment & Plan: Patient has history of paroxysmal atrial fibrillation continues on Xarelto for anticoagulation. He denies any bleeding or excessive bruising. Creatinine clearance 62 mL/min. Patient is on appropriate Xarelto dose 20 mg daily. Atrial tachycardia (CMS/HCC V24) 08/25/2020 Chest pain 08/25/2020 Overview (05/15/2024): D/C'd [...] in place. Patient was seen at the [facility] advanced heart failure clinic. Patient denies [...] branch block 08/25/2020 SSS (sick sinus syndrome) ([facility] V24, [facility] V28) 08/25/2020 Overview (05/15/2024): 05/01/16 PPM implanted Last Assessment & Plan: Patient has history of sick sinus syndrome status post permanent pacemaker implanted in 2015. He had an upgrade of his device to a biventricular AICD 08/2018. We will continue to monitor with remote monitoring and routine visits to our device clinic. Transient ischemic attack 08/25/2020 Ventricular tachycardia (CMS/HCC V24, [facility] V2 8) 08/25/2020 Overview (05/15/2024): Last Assessment & Plan: [...] Encounters Date Type Department Care Team Description 04/03/2025 5:35 PM EDT Ancillary Procedure [facility] [address] [place] [address] 03/16/[address] [place] [phone] Radha Caal NP 03/11/2025 10:35 PM EDT Ancillary Procedure [facility] - [address] [place] [address] 02/03/2025 6:15 AM EDT Ancillary Procedure [facility] - [address] [place] [address] from Last 3 Months Immunizations Name Administration Dates Next Due Pfizer SARS-CoV-2 COVID-19, mRNA, LNP-S, preservative free 12/28/2020 Surgical History Surgery Date Site/Laterality Comments CORONARY ARTERY BYPASS GRAFT 2017 PROCEDURE: HISTORICAL CABG COLONOSCOPY W/ BIOPSIES 04/27/2017 PROCEDURE: KS COLONOSCOPY W/BIOPSY SINGLE/MULTIPLE; COMMENT: flexible, proximal to splenic flexure PACEMAKER IMPLANT 05/01/2016 PROCEDURE: HISTORICAL PACEMAKER OTHER SURGICAL HISTORY PROCEDURE: HISTORICAL ICD CATARACT EXTRACTION Bilateral PROCEDURE: HISTORICAL CATARACT REMOVAL COLONOSCOPY W/ BIOPSIES 04/01/2015 PROCEDURE: KS COLONOSCOPY W/BIOPSY SINGLE/MULTIPLE; COMMENT: flexible, proximal to splenic flexure FLEXIBLE SIGMOIDOSCOPY 11/01/2012 PROCEDURE: HISTORICAL FLEXIBLE SIGMOIDOSCOPY; COMMENT: dx, w/ or w/o collection of specimen(s) by brushing or washing (separate procedure) OTHER SURGICAL HISTORY 03/11/2012 PROCEDURE: KS ENDOSCOPY UPPER SMALL INTESTINE; COMMENT: including esophagus, stomach, and either the duodenum and/or jejunum as appropriate; dx, w/ or w/o collection of specimen(s) by brushing or washing (separate procedure) COLONOSCOPY W/ BIOPSIES 07/04/2010 PROCEDURE: KS COLONOSCOPY W/BIOPSY SINGLE/MULTIPLE; COMMENT: flexible, proximal to splenic flexure OTHER SURGICAL HISTORY PROCEDURE: KS PRQ TRLUML CORONARY STENT/ATH/ANGIO ADDL BRANCH HERNIA [...] DX:Rig ht bundle branch block Atrial tachycardia ([facility] V24) 08/25/2020 DX:Atrial tachycardia ([facility]) Paroxysmal atrial tachycardi a by electrocardiography ([facility] V24) 08/25/2020 DX:Paroxysmal atrial tachycardia by electrocardiography ([facility]); COMMENT: ECG: paroxysmal atrial tachy. 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 07/24/2018 DX:Secondary osteoar thritis of left shoulder due to rotator cuff tear Dyspnea 08/25/2020 DX:Dyspnea Atypical chest pain 08/25/2020 DX:Atypical chest pain Ulcerative colitis ([facility] V24, [facility] V28) DX:Ulcerative colitis ([facility]) Alcohol abuse, daily use 08/25/2020 DX:Alco hol abuse, daily use; COMMENT: beers & shots daily ARLEEN (obstructive sleep apnea) 08/25/2020 DX :ARLEEN (obstructive sleep apnea) Socrates-Colin breathing DX:Cheyn e-Colin breathing Dehydration DX:Dehydration Diabetes mellitus type 2, diet-controlled ([facility] V24, [facility] V28) DX:Diabetes mellitus type 2, diet-controlled ([facility]) Gastroesophageal reflux disease DX:Gastroesophageal reflux disease; COMMENT: [...] Sign Reading Time Taken Comments Blood Pressure 118/70 11/25/2024 12:34 PM EDT Pulse 72 10/28/2024 10:05 AM EDT Temperature 36.9 C (98.5 F) 10/28/2024 10:05 AM EDT Respiratory Rate 16 10/28/2024 9:06 AM EDT Oxygen Saturation 98% 10/28/2024 10:05 AM EDT Inhaled Oxygen Concentration - - Weight 77.6 kg (171 lb) 11/25/2024 12:34 PM EDT Height 177.8 cm (5' 10 ) 11/25/2024 12:34 PM EDT Body Mass Index 24.54 11/25/2024 12:34 PM EDT Plan of Treatment Upcoming Encounters Date Type Department Care Team (Late st Contact Info) Description 06/09/2025 11:20 AM EDT Office Visit [facility] Cardiology [facility] [address] [place] [address] Denis Mackay MD [address] [place] [address] [address] [place] [address] 06/29/2025 11:00 AM EST Ancillary Procedure [facility] Cardiology [facility] [address] [facility] [address] [place] [phone] Health Maintenance Due Date Last Done Comments Diabetes: Annual Foot Exam 1945 Diabetes: Annual Retina Eye Exam 1945 Hepatitis A Vaccines (1 of 2 - Risk 2-dose series) 02/27/1956 Zoster Vaccines (1 of 2) 1987 RSV Immunization Adult Patients (1 - 1-dose 75+ series) 02/27/2012 Pneumococcal Vaccine: 50+ Years (2 of 2 - PCV) 12/16/2016 12/17/2015 COVID-19 Vaccine (3 - Pfizer risk series) 01/25/2021 12/28/2020, 12/07/2020 Medicare Annual Wellness Visit 07/20/2022 Social Influencers of Health Screening 07/20/2022 Diabetes: Blood Sugar Contro l Test (HGBA1C) 07/27/2022 Depression Screening 08/13/2024 Influenza Vaccine (#1) 2025 Hypertension/CHF/CAD Annual BMP Blood Test 06/20/2025 06/20/2024 [...] age to complete this topic Meningococcal B Vaccine Aged Out No l onger eligible based on patient's age to complete this topic RSV Immunization Patients Under 20 months Aged Out No longer eligible b ased on patient's age to complete this topic Varicella Vaccines Aged Out No longer eligible based on patient's age to complete this topic Medical Devices Implanted Type Area Head Girls Golf Coach Device Identifier Shelf Expiration Date Model / Serial / Lot [employer]um[employer] Leena 7 Hf-T Qp [id number] Implanted:11/2018 (Quantity not on file) Cardiac COMBINE DRIVER-D ICD [employer] ILIVIA 7 HF-T QP / [id number] / Procedures Procedure Name Priority Date/Time Associated Diagnosis Comments CARDIAC DEVICE CHECK- REMOTE- MURJ Routine 04/03/2025 5:33 PM EDT CARDIAC DEVICE CHECK- REMOTE- MURJ Routine 03/11/2025 10:32 PM EDT CARDIAC DEVICE CHECK- REMOTE- MURJ Routine 02/03/2025 6:14 AM EDT BASIC METABOLIC PANEL Routine 06/20/2024 3:15 PM EST LIPID PANEL Routine 06/20/2024 3:15 PM EST from Last 3 Months or Most Recently Relevant to Health Maintenance Results * Cardiac device check - Remote- MURJ (04/03/2025 5:33 PM EDT) Only the most recent of3 resultswithin the time period is included. Date Time Interrogation Session [id number] CV DEVICE CHECK Type Interrogation Session RemoteScheduled CV DEVICE CHECK Implantable Pulse Generator Head Girls Golf Coach BIO CV DEVICE CHECK Implantable Pulse Generator Type COMBINE DRIVER-D CV DEVICE CHECK Implantable Pulse Generator Model Ilivia 7 HF-T QP CV DEVICE CHECK Implantable Pulse Generator Serial Number [id number] CV DEVICE CHECK Implantable Pulse Generator Implant Date [id number] CV DEVICE CHECK Battery Remaining Percentage 4.00 CV DEVICE CHECK Battery Voltage 2.790 CV D EVICE CHECK Battery PETROLEUM REFINING EQUIPMENT OPERATOR Trigger 2.500 CV DEVICE CHECK Battery Status Middle of Service CV DEVICE CHECK Capacitor Charge Time 10.800 CV DEVICE CHECK Salvador Statistic RA Percent Paced 80.00 CV DEVICE CHECK Salvador Statistic RV Percent Paced 100.00 CV DEVICE CHECK COMBINE DRIVER Statistic LV Percent Paced 95.00 CV DEVICE CHECK COMBINE DRIVER Statistic COMBINE DRIVER Percent Paced 100.00 CV DEVICE CHECK Atrial Tachy Statistic AT/AF [place] Percent 0.00 CV DEVICE CHECK Lead Channel Sensing Intrinsic Amplitude 2.400 CV DEVICE CHECK Lead Channel Setting Sensing Sensitivity 0.40 CV DEVICE CHECK Lead Channel Impedance Value 594 CV DEVICE CHECK Lead Channel Pacing Threshold Amplitude 1.100 CV DEVICE CHECK Lead Channel Pacing Threshold Pulse Width 0.4 CV DEVICE CHECK Lead Channel RA Pacing Threshold Date 2025-04-03 CV DEVICE CHECK Lead Channel Setting Pacing Amplitude 2.100 CV DEVICE CHECK Lead Channel Setting Pacing Pulse Width 0.4 CV DEVICE CHECK Lead Channel Setting Sensing Sensitivity 0.80 CV DEVICE CHECK Lead Channel Impedance Value 493 CV DEVICE CHECK Lead Channel Pacing Threshold Amplitude 0.800 CV DEVICE CHECK Lead Channel Pacing Threshold Pulse Width 0.4 CV DEVICE CHECK Lead Channel RV Pacing Threshold Date 2025-04-03 CV DEVICE CHECK Lead Channel Setting Pacing Amplitude 1.800 CV DEVICE CHECK Lead Channel Setting Pacing Pulse Width 0.4 CV DEVICE CHECK Lead Channel Sensing Intrinsic Amplitude 9.900 CV DEVICE CHECK Lead Channel Impedance Value 1,217 CV DEVICE CHECK Lead Channel Pacing Threshold Date 2025-04-03 CV DEVICE CHECK Lead Channel Setting Pacing Amplitude 3.000 CV DEVICE CHECK Lead Channel Setting Pacing Pulse Width 1.0 CV DEVICE CHECK Salvador Setting Mode (NBG Code) DDD-CLS CV DEVICE CHECK Ventricular chambers paced during COMBINE DRIVER pacing. BiV CV DEVICE CHECK Salvador Setting Lower Rate Limit 70 CV DEVICE CHECK Salvador Setting AT Mode Switch Rate 160 CV DEVICE CHECK Salvador Setting Maximum Tracking Rate 130 CV DEVICE CHECK Salvador Setting Maximum Sensor Rate 120 CV DEVICE CHECK Salvador Setting PAV Delay 120 CV DEVICE CHECK Salvador Setting STANLEY Delay 80 CV DEVICE CHECK COMBINE DRIVER LV-RV Delay 0 CV D EVICE CHECK Therapy Statistic Recent Shocks Delivered 0 CV DEVICE CHECK Therapy Statistic Recent Shocks Aborted 0 CV DEVICE CHECK Therapy Statistic Recent ATP Delivered 0 CV DEVICE CHECK Shock Measured Impedance 60 CV DEVICE CHECK Zone Setting Type Category [...] 12 CV DEVICE CHECK Date of Service 2025-04-05 CV DEVICE CHECK Anatomical Region Laterality Modality Device Interroga tion 04/03/2025 12:2 8 AM EDT Impressions 04/03/2025 5:09 PM EDT Heart Failure Diagnostic: Stable * Heart failure diagnostics assessed through the device * Status: Stable * No overt HF present Narrative Procedure Note Pb Woodward MD - 04/03/2025 IMPRESSION: Heart Failure Diagnostic: Stable * Heart failure diagnostics assessed through the device * Status: Stable * No overt HF present us Pb Woodward MD CV IMPLANTABLE CARDIAC DEV ICE PROCEDURES Final Result * (ABNORMAL) Lipid panel (06/20/2024 3:15 PM [...] - 06/21/2024 5:06 AM EST Performed at: 01 - [facility] [address] [id number] Design Project Manager: Meri Dillard MD, Phone: [phone] us Denis Mackay MD LAB BLOOD ORDERABLES [...] - 06/24/2024 12:08 PM EST Performed at: 01 - [facility] [address] [id number] Design Project Manager: Meri Dillard MD, Phone: [phone] us Denis Mackay MD LAB BLOOD ORDERABLES Final Res ult [facility] 1 from Last 3 Months or Most Recently Relevant to Health Maintenance Insurance MEDICARE [facility] Care Teams Package Lift Operator Relationship Specialty Start Date End Date Yusuf Elliott MD [address] [place] [phone] [facility] - General 07/15/12
--- OUTSIDE RECORDS SUMMARY | 2025-04-14 14:43 | XMS_ITS | Clinical Summary ---
Author Organization [facility] Address [address] [place] [address] Care Team Providers Care Cook Chill Technician Name Role Phone Yusuf Elliott MD Primary Care Provider [phone] Allergies Active Allergy Reactions Criticality Noted Date [...] 2 - PCV) 12/16/2016 12/17/2015 COVID-19 Vaccine ( - 2024-2 6 season) 2025 12/28/2020, 12/07/2020 Influenza Vaccine (#1) 2025 Hepatitis B Vaccines Aged Out No long er eligible based on patient's age to complete this topic RSV Ped < 20 months Aged Out No longe r eligible based on patient's age to complete this topic Care Teams Cook Chill Technician Relationship Specialty Start Date End Date Yusuf Elliott MD [address] [place] [address] PCP - General Internal Medicine 10/10/19
--- OUTSIDE RECORDS SUMMARY | 2025-04-14 14:43 | XMS_ITS ---
Author Name [facility] Organization Unknown History of Medication Use Medication Directions Dispensed Refills Start Date End Date [facility] tizanidine 2 mg tablet take 1 tablet TID PRN muscle spasms 01/27/2025 active Lyrica 50 mg capsule Take 1 capsule 3 times a day by oral route. 01/13/2025 active methocarbamol 500 mg tablet Take 1 tablet 3 times a day by oral route, for PRN muscle spasms. 01/13/2025 active Voltaren Arthritis Pain 1 % topical gel APPLY 2 GRAMS TO THE AFFECTED AREA(S) BY TOPICAL ROUTE 4 TIMES PER DAY 01/13/2025 active Breo Ellipta 100 mcg-25 mcg/dose powder for inhalation INHALE 1 PUFF EVERY DAY 4 completed cephalexin 500 mg capsule TAKE 1 CAPSULE BY MOUTH TWICE A DAY FOR 10 DAYS 4 completed spironolactone 25 mg tablet TAKE 1 TABLET BY MOUTH EVERY DAY 4 completed methocarbamol 500 mg tablet active Lyrica 50 mg capsule active Voltaren Arthritis Pain 1 % topical gel active acetaminophen 325 mg capsule Take by oral route. active aspirin 81 mg capsule Take 1 capsule every day by oral route. active atorvastatin 80 mg tablet TAKE 1 TABLET BY MOUTH EVERY DAY active B Complex Vitamin active carvedilol 25 mg tablet TAKE 1 TABLET BY MOUTH TWICE A DAY WITH FOOD active clobetasol 0.05 % topical cream APPLY TO AFFECTED AREA TWICE A DAY FOR 14 DAYS active Crestor 20 mg tablet Take 1 tablet every day by oral route. active Entresto 49 mg-51 mg tablet TAKE 1 TABLET BY MOUTH TWICE A DAY active Farxiga 10 mg tablet TAKE 1 TABLET BY MOUTH EVERY DAY active gabapentin 300 mg capsule TAKE 1 CAPSULE BY MOUTH 4 TIMES A DAY NEEDED FOR PAIN active mupirocin 2 % topical ointment APPLY TO WOUND ON RIGHT LEG AFTER WET /DRY DRESSINGS active Nitrostat 0.[address] by sublingual route. active pregabalin 25 mg capsule TAKE 1 CAPSULE BY MOUTH THREE TIMES A DAY active rosuvastatin 40 mg tablet TAKE 1 TABLET BY MOUTH 1 TIME EACH DAY. active Rybelsus 7 mg tablet TAKE 1 TABLET BY MOUTH DAILY,X30 DAYS 30 MINS BEFORE FIRST FOOD, BEVERAGE, OR OTHER ORAL MEDS active sulfasalazine 500 mg tablet TAKE 5 TABLETS TWICE A DAY active torsemide 20 mg tablet Take 1 tablet every day by oral route. active vitamin E active Xarelto 20 mg tablet TAKE 1 TABLET (20 MG TOTAL) BY MOUTH DAILY WITH DINNER active Allergies Allergen Reaction Severity Comment Documented Date Source Statu s CLARITHROMYCIN [facility] CODEINE [facility] IODINATED CONTRAST MEDIA [facility] PENICILLINS [facility] PROZAC [facility] TETRACYCLINE [facility] Problems Problem Status Onset Date Problem Type Date of Resoluti on Source Lumbar radiculopathy active 2024-06-[address] [facility] [facility] Degenerative lumbar spinal stenosis active 2024-06-17 Problem[address] [facility] Encounters Encounter Type Encounter Reason Primary Diagnosis Location Date Ambulatory [facility] 01/13/2025 Ambulatory [facility] 11/17/2024 [facility]ulatory [facility] [place] 02/09/2023 Care Team Organization Name Specialty Phone Email Start Date End Da te [facility] 2024
== END 2025-04-14 13:49 | disposition home or self-care (01) ==
LOC: HO.HOS 13:27
PROVIDERS: PCP Internal Medicine; Visit Provider Orthopaedic Surgery
DX: M75.42 Impingement syndrome of left shoulder (principal); M25.811 Other specified joint disorders, right shoulder
CPT/HCPCS: 20610; 99213

== ENCOUNTER → 2025-04-14 13:27 | Outpatient (BNVA) | payer MEDICARE, SELFPAY | PROVIDERS: PCP Internal Medicine; Visit Provider Orthopaedic Surgery | DX: M25.811 Other specified joint disorders, right shoulder (principal); M75.42 Impingement syndrome of left shoulder | CPT/HCPCS: 20610; 99212; J1010; J2003 ==

== ENCOUNTER 2025-07-14 11:34 | Outpatient (AMB) | payer MEDICARE, SELFPAY ==
--- NOTE | 2025-07-14 11:43 | MHC.OFFVIS ---
Intake Visit Reasons: Inj-B/L shoulder Cortisone INJ Intake Note: Stu is a 89 year old male right hand dominant who presents with complaints of bilateral shoulder pains. He describes his pains as sharp in nature. He has had cortisone injections in the past which gave him fairly good relief. He has also tried Tylenol and anti-inflammatory medicines which gave him minimal relief. He wishes to hold off on surgery if at all possible. Allergies codeine Allergy (Severe, Verified 04/14/25 13:33) Shakes morphine Allergy (Severe, Verified 04/14/25 13:33) Shakes tetracycline Allergy (Severe, Verified 04/14/25 13:33) Hallucinations Contrast Dye Allergy (Severe, Uncoded 01/08/25 13:39) Itching Erythromycin Allergy (Severe, Uncoded 01/08/25 13:39) Rash and Hives Medication List - Last Reconciled 07/14/25 by Raymond Fischer MD ascorbic acid (vitamin C) mg PO aspirin 81 mg PO DAILY Breo Ellipta 100-25 mcg/dose (fluticasone furoate-vilanterol) 1 ea inhalation DAILY NS carvedilol 25 mg PO BID cholecalciferol (vitamin D3) 25 mcg PO DAILY coenzyme Q10 10 mg PO TID cyanocobalamin (vitamin B-12) 2,500 mcg PO DAILY dapagliflozin propanediol (Farxiga) 10 mg PO DAILY gabapentin 300 mg PO Q8H naltrexone 50 mg PO DAILY nitroglycerin mg sublingual omega-3 fatty acids (Fish Oil Concentrate) 1,000 mg PO DAILY potassium chloride ER 10 mEq PO DAILY pregabalin 25 mg PO TID rivaroxaban (Xarelto) 20 mg PO DAILY rosuvastatin 40 mg PO DAILY sacubitril-valsartan 49-51 mg (Entresto) 1 tab PO BID semaglutide (Rybelsus) 3 mg PO DAILY sulfasalazine 0.5 grams PO DAILY torsemide 20 mg PO BID PFSH Medical History Chronic respiratory failure ARLEEN treated with BiPAP COVID-19 COPD (chronic obstructive pulmonary disease) Social History Patient Tobacco Use Status: Former Tobacco user Tobacco use type: Cigarette Years Smoked: 25 years ago Physical Exam Extrem Other: Bilateral shoulder examination shows positive impingement signs, 5/5 strength with supraspinatus testing, no instability Office Procedures AMB Joint Injection/Aspiration Joint Injection/Aspiration Primary Site: Left Shoulder Prep: site was prepped using aseptic technique Injected: 40 mg of, DepoMedrol, with 3 mL of and 1% plain Lidocaine Procedure: The patient tolerated the procedure well Coding 47942 - Large joint Procedure code (CPT) selection complete AMB Joint Injection/Aspiration Joint Injection/Aspiration Primary Site: Right Shoulder Prep: site was prepped using aseptic technique Injected: 40 mg of, DepoMedrol, with 3 mL of and 1% plain Lidocaine Procedure: The patient tolerated the procedure well Coding 54865 - Large joint Procedure code (CPT) selection complete Assessment & Plan Assessment & Plan (1) Impingement syndrome of left shoulder: Code(s): M75.42 - Impingement syndrome of left shoulder Category: Medical (2) Impingement of right shoulder: Code(s): M25.811 - Other specified joint disorders, right shoulder Category: Medical Plan Mr. Carranza presents with bilateral shoulder pains due to impingement syndrome. The risks and benefits of bilateral shoulder cortisone injections were discussed at length with the patient. The patient wished to proceed. Tolerated the injections well. He will continue with his home stretching program. He will contact me prior to his follow-up appointment in 3 months should any questions or concerns arise. Feel free to call me at any time should questions regarding his orthopedic management arise. I spent 21 minutes in reviewing the patient's records and imaging studies, seeing the patient and documenting in the medical record. Orders: Orders AMB Joint Injection/Aspiration Today M75.42 - Impingement syndrome of left shoulder AMB Joint Injection/Aspiration Today M25.811 - Other specified joint disorders, right shoulder Coding Level of Care Code Est Pt Level 3 (54595) Complex visit Add On G2211 Diagnoses Impingement syndrome of left shoulder M75.42 Impingement of right shoulder M25.811 CPT Codes Coding - 38461 Large joint: 77942 - Large joint ([id number]) Coding - 19473 Large joint: 76835 - Large joint ([id number])
--- OUTSIDE RECORDS SUMMARY | 2025-07-14 13:47 | XMS_ITS | Clinical Summary ---
Author Organization [facility] Address [address] [place] [address] Care Team Providers Care Vice President Payer Name Role Phone Yusuf Elliott MD Primary Care Provider [phone] Allergies Active Allergy Reactions Criticality Noted Date [...] age to complete this topic Care Teams Vice President Payer Relationship Specialty Start Date End Date Yusuf Elliott MD [address] [place] [address] PCP - General Internal Medicine 10/10/19
--- OUTSIDE RECORDS SUMMARY | 2025-07-14 13:47 | XMS_ITS | Data Portability ---
Author Organization [place] [employer] [facility] [employer] [facility], [id number] Address [address] [facility] [address] [place] [address] Assessment Encounter Date Assessment Date Assessment LastModified [...] denies having any other further questions/concern s [email or web address] Not available 06/17/2024 10:36:34 01/13/2025 01/13/2025 -patient likely with lumbar radiculopathy from spinal/neuroforam inal stenosis at multiple levels of his lumbar spine, including severe central canal stenosis L3/4 and L4/5, and severe neuroforaminal stenosis at L5/S1 bilaterally -patient has undergone BENEDICTO x3 over the past few months, and while each one was helpful, they did not last too long, so advised that it would probably not be worthwhile repeating them again -will increase lyrica 25mg-->50mg TID, advised to start QHS and increase as tolerated -start voltaren gel to lower back -start methocarbamol 500mg TID PRN muscle spasms -continue HEP/PT -continue tylenol -f/up in 1 month -20 minutes was used for chart review, interviewing/exam ining, and counseling the patient during today's visit, and patient denies having any other further questions/concern s [id number] Not available 01/13/2025 13:06:50 02/10/2025 02/10/2025 -patient likely with lumbar radiculopathy from spinal/neuroforam inal stenosis at multiple levels of his lumbar spine, including severe central canal stenosis L3/4 and L4/5, and severe neuroforaminal stenosis at L5/S1 bilaterally -patient has undergone BENEDICTO x3 over the past few months, and while each one was helpful, they did not last too long, so advised that it would probably not be worthwhile repeating them again -will continue lyrica 50mg TID -continue voltaren gel to lower back -continue methocarbamol 500mg TID PRN muscle spasms -continue HEP/PT -continue tylenol -f/up in 3 months -20 minutes was used for chart review, interviewing/exam ining, and counseling the patient during today's visit, and patient denies having any other further questions/concern s [id number] Not available 02/10/2025 11:32:30 Plan of Treatment Reminders Order Date Submit Date Provider Last Modified By Organization Details Last Modified Time Details Appointments None recorded. Lab None recorded. Referral None recorded. Procedures None recorded. Surgeries None recorded. Imaging None recorded. Medication Orders Lyrica 50 mg capsule 2024 025 [facility]/Pharmacy #[id number], [address] [place] [address], [address], 11:32:51 methocarbam ol 500 mg tablet 2024 025 [facility]/Pharmacy #[id number], [address] [place] [address], [address], 10:26:53 Voltaren Arthritis Pain 1 % topical gel 2024 025 [facility]/Pharmacy #[id number], [address] [place] [address], [id number], 13:06:01 Lyrica 50 mg capsule 2024 025 [facility]/Pharmacy #[id number], [address] [place], [address], 13:06:06 Patient TargetsNo targets recorded. Patient InstructionsNo instructions recorded. Reason for Referral None Reported. Results Created Date Observation Date Name Description Value Unit Range Abnormal Flag Note LastModifiedBy Organization Detail LastModifiedTime 07/15/20 24 07/15/2024 POCT GLUCO SE, BLOOD glucose poct 176 mg/dL 70-100 high Not Available [address], [address], 07/15/2024 07:21:09 07/15/20 24 07/15/2024 POCT GLUCO SE, BLOOD note See Report [facility], [address] [place] [place] [address] Not Available [address], [address], 07/15/2024 07:21:09 09/02/19 25 09/02/2024 POCT GLUCO SE, BLOOD glucose poct 130 mg/dL 70-100 high Not Available [address], [address], 09/02/2024 08:22:35 09/02/19 25 09/02/2024 POCT GLUCO SE, BLOOD note See Report [facility], [address] [place], [place] [address] Not Available [address], [address], 09/02/2024 08:22:35 10/29/19 25 10/28/2024 POCT GLUCO SE, BLOOD glucose poct 119 mg/dL 70-100 high Not Available [address], [address], 10/28/2024 09:15:44 10/29/19 25 10/28/2024 POCT GLUCO SE, BLOOD note See Report [facility], [address], [place], [place] [address] Not Available [address], [address], 10/28/2024 09:15:44 07/04/[address], lumba r spine , w/o contr ast No observ ation record ed. [email or web address] Not Available 2023 09:21:37 07/15/20 24 H&P No observ ation record ed. [address], [address], 07/15/2024 07:21:38 07/15/20 24 07/15/2024 proce dures No observ ation record ed. [email or web address] [address], [address], 07/15/2024 10:08:13 07/15/20 24 07/15/2024 proce dures No observ ation record ed. [email or web address] [address], [address], 07/15/2024 10:08:14 07/15/20 24 07/15/2024 xr fluor o up to 1 hour See Note [facility] , a member of [employer] [facility] Name: LEDA Lewis Date of : 1934 Reason for Exam: pain Exam Date: 2023 [id number] EST Report Status : Final Orderi ng Provid er: GREY APODACA PCP: JAH Quintanilla gs: Bj barriga spot images of the lumbos acral juncti on are submit ramon from the OR, used intrao perati vely by Dr. Apodaca during a pain manage ment proced ure. [...] FINAL REPORT ------ -- Dictat ed By: aYritza Porter Dictat ed Date: 2023 11:43 ET Assign ed Physic reyna: Yaritza Porter Review ed and Electr onical ly Signed By: Yaritza Porter Signed Date: 2023 11:43 ET Workst ation ID: [facility] [id number] Transc ribed By: Self Edit Transc ribed Date: 2023 11:43 ET [email or web address], [address], 07/15/2024 12:26:11 09/02/19 25 09/02/2024 proce dures No observ ation record ed. [email or web address] [address], [address], 09/02/2024 10:55:09 09/02/19 25 09/02/2024 proce dures No observ ation record ed. [address], [address], 09/02/2024 10:55:09 09/02/19 25 09/02/2024 xr fluor o up to 1 hour See Note [facility] , a member of [employer] [facility] Name: LEDA Lewis Date of : 1934 Reason for Exam: pain Exam Date: 2024 [id number] EST Report Status : Final Orderi ng Provid er: GREY APODACA PCP: JAH VEGA Fluoro scopic spot radiog raphs obtain ed during lumbos acral spine inject ion are submit ramon. No radiol ogist consul tation was reques ramon or provid ed during this proced ure and there is no radiol ogist profes sional charge . This report is genera ramon for antonieta casey kandis browne only. The dose for this proced ure [...] Edit Transc ribed Date: 2024 10:46 ET [email or web address] [address], [address], 09/02/2024 10:55:09 Result Notes None recorded. Problems Name Problem SNOMED Code Status Onset Date Resolution Date Notes Provider Name and Address Organization Details Recorded Time Lumbar radiculopathy 765987271 Active 2023 Grey Apodaca MD null, [facility] 10:33:32 Degenerative lumbar spinal stenosis 435862770 Active 2023 Grey Apodaca MD null, [facility] 10:33:40 Problem Notes None recorded. Procedures Surgical History Date Name Laterality Status Provider Name and Address Organization Details Recorded Time coronary artery bypass graft completed [facility] 06/17/2024 09:23:08 colonoscopy completed [facility] 06/17/2024 09:24:12 cardiac pacemaker procedure completed [facility] 06/17/2024 09:24:23 extraction of cataract completed [facility] 06/17/2024 09:25:06 hernia repair completed [facility] 06/17/2024 09:25:27 placement of stent in coronary artery completed [facility] 06/17/2024 09:26:15 Imaging Results None recorded. Procedure Notes None recorded. Medical Equipment None Reported. Allergies Allergen ID Allergen Name Allergen Category Reaction Reaction Severity Criticality Documentation Date Start Date Code Code System Note Provider Name and Address Organization Details Recorded Time 474 Product containin g penicilli n (product) medicatio n Not available Not available Not available 06/17/2024 78834 8001 SNOMED Leslye Bonilla null, [facility] 4 09:05:04 475 tetracycl ine medicatio n Not available Not available Not available 06/17/2024 28231 RxNorm Leslye Bonilla null, [facility] 4 09:05:54 476 Iodinated contrast media (substanc e) medicatio n Not available Not available Not available 06/17/2024 35133 2003 SNOMED Leslye Bonilla null, [facility] 4 09:06:06 477 codeine medicatio n Not available Not available Not available 06/17/2024 2670 RxNorm Leslye Bonilla null, [facility] 4 09:06:15 478 clarithro mycin medicatio n Not available Not available Not available 06/17/2024 93064 RxNorm Leslye Bonilla null, [facility] 4 09:06:59 479 Prozac medicatio n Not available Not available Not available 06/17/2024 23924 RxNorm Leslye Bonilla null, [facility] 4 09:07:15 Medications Name Sig Start Date Stop Date Status Note LastModified by Organization Details LastModified Time methocarbam ol 500 mg tablet TAKE 1 TABLET BY MOUTH THREE TIMES A DAY NEEDED FOR MUSCLE SPASMS active Not Available Not Available No t Available atorvastati n 80 mg tablet TAKE 1 [...] Not Available Not Available No t Available tizanidine 2 mg tablet TAKE 1 TABLET BY MOUTH THREE TIMES A DAY NEEDED MUSCLE SPASMS 2024 active Not Available Not Available Not Avai lable FreeStyle Lancets 28 gauge TEST BLOOD SUGARS ONCE DAILY 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 active Not Available Not Available No t Available Crestor 20 mg tablet Take 1 tablet every day by oral route. active Not Available Not Available No t Available pregabalin 25 mg capsule TAKE 1 CAPSULE BY MOUTH THREE TIMES A DAY 01/21 completed Not Available Not Available Not Available pregabalin 50 mg capsule TAKE 1 CAPSULE BY MOUTH [...] Not Available Not Available N ot Available Xarelto 20 mg tablet TAKE 1 [...] mg tablet TAKE 1 TABLET BY MOUTH DAILY IN THE MORNING 30 MIN BEFORE ANY FOOD, DRINK OR MED WITH MAX 4OZ WATER active Not Available Not Available No t Available Voltaren Arthritis Pain 1 % topical gel APPLY 2 GRAMS TO THE AFFECTED AREA(S) BY TOPICAL ROUTE 4 TIMES PER DAY 2024 active Not Available Not Available Not Avai lable aspirin 81 mg capsule Take 1 capsule every day by oral route. active Not Available Not Available No t Available Vitals Date Recorded Body height Body mass index (BMI) Body weight Heart rate Oxygen saturation Body temperature Systolic And Diastolic Provider Name and Address Organization Details Last Updated DateTime 5 180.34 cm 19.5 kg/m2 34833.9 3 g 107 /min 90 % 98 [degF] 129/63 mm[Hg] [facility] 5 12:33:15 Date Recorded Body height Body mass index (BMI) Body weight Heart rate Body temperature Systolic And Diastolic Provider Name and Address Organization Details Last Updated DateTime 5 180.34 cm 23 kg/m2 13255.7 4 g 75 /min 97.7 [degF] 136/71 mm[Hg] [facility] 5 11:04:25 Date Recorded Body weight Body mass index (BMI) Body height Heart rate Oxygen saturation Systolic And Diastolic Provider Name and Address Organization Details Last Updated DateTime 4 87299.7 g 23.7 kg/m2 180.34 cm 71 /min 96 % 165/98 mm[Hg] [facility] 4 09:03:16 Social History None recorded. Functional Status None recorded. Mental Status None recorded. Family History Nothing Reported. Medical History No medical history recorded. Past Encounters Encounter ID Performer Location Encounter Start Date Encounter Closed Date Diagnosis/Indication Diagnosis SNOMED-CT Code Diagnosis ICD10 Code Diagnosis IMO Codes Diagnosis Note [id number] Grey Apodaca MD [id number] [facility] [address] [place] [address] 06/17/2024 08:50:51 06/17/2024 10:39:31 Lumbar radiculopathy 818468310 M54.16 Degenerati ve lumbar spinal stenosis 871921705 M48.061 [id number] Grey Apodaca MD [id number] [facility] [address] [place], [place] [address] , [place] [address] 01/13/2025 12:27:36 01/13/2025 13:20:22 Lumbar radiculopathy 478543251 M54.16 Degenerati ve lumbar spinal stenosis 428297968 M48.061 [id number] Grey Apodaca MD [id number] [facility] [address] [facility] [facility] [address] [place], [place] [address] , [place] [address] 02/10/2025 10:58:46 02/10/2025 11:51:03 Lumbar radiculopathy 477065100 M54.16 Degenerati ve lumbar spinal stenosis 801200746 M48.061 Health Concerns Section Related Observation LastModified by Organization Detai ls LastModified Time None Recorded Concern Status LastModified by Organization Details LastModified Time None Recorded Advance Directives Directive None Recorded Payers Insurance Date Sequence Insurance Name Policy Number Policy Murphy Covered Member ID Murphy Member ID Guarantor Name 02/10/2025 1 [place] [facility] Leda Dillon [id number] Leda Carranza 02/10/2025 2 [place] [id number] Leda Coleman Dillon [id number] Leda Dillon Notes Date Note Type Note Provider Name and Address Organization Details Recorded Time 06/17/2024 text/html ROS as noted in the HPI Leda Carranza is a pleasant 89 year [...] of the exiting S1 nerve roots. Grey Apodaca MD null, [place] [facility] 06/17/2024 10:37:20 01/13/2025 text/html ROS as noted in the HPI Leda Carranza is a pleasant 89 year [...] 300mg QID--no benefitPrevious Nerve Block or Injection: L5/S1 interlaminar BENEDICTO (L>R) (10/28/2024): significant relief, but only for ~1 weekL5/S1 interlaminar BENEDICTO (L>R) (09/02/2024): significant relief, but only for ~2 weeksL5/S1 interlaminar BENEDICTO (L>R) (07/15/2024): significant relief, but only for ~2 weeksI personally reviewed prior radiological services. I also [...] impingement of the exiting S1 nerve roots. 01/13/2025: Patient seen/examined in the office. Patient is accompanied by his daughter. They report that the Lyrica is helping with his leg pain. Does find that he still has significant lower back pain as well as some leg pain as well. He denies any side effects associated with his current pain medication regimen. Discussed that the plan will be to increase his dosage of Lyrica slowly until his pain is under adequate control. He reports that his pain is currently a 10/10, mostly over the lower back. He does find that activity makes the pain worse. Grey Apodaca MD [facility], [place] [facility] 01/13/2025 13:06:55 02/10/2025 text/html ROS as noted in the HPI Leda Carranza is a pleasant 89 year [...] 300mg QID--no benefitPrevious Nerve Block or Injection: L5/S1 interlaminar BENEDICTO (L>R) (10/28/2024): significant relief, but only for ~1 weekL5/S1 interlaminar BENEDICTO (L>R) (09/02/2024): significant relief, but only for ~2 weeksL5/S1 interlaminar BENEDICTO (L>R) (07/15/2024): significant relief, but only for ~2 weeksI personally reviewed prior radiological services. I also [...] impingement of the exiting S1 nerve roots. 01/13/2025: Patient seen/examined in the office. Patient is accompanied by his daughter. They report that the Lyrica is helping with his leg pain. Does find that he still has significant lower back pain as well as some leg pain as well. He denies any side effects associated with his current pain medication regimen. Discussed that the plan will be to increase his dosage of Lyrica slowly until his pain is under adequate control. He reports that his pain is currently a 10/10, mostly over the lower back. He does find that activity makes the pain worse. 02/10/25: Patient seen/examined in the office. He reports that he has been doing quite well over the past month. He has been taking the Lyrica 50 mg 3 times a day. He reports that currently his pain is a 0 out of 10. He finds that more days than not his pain is not present, and other days it is pretty tolerable. He does report some numbness in his feet and ankles bilaterally, but that has been present for several years likely related to longstanding hypertension and diabetes. He denies any side effects associated with his current medication regimen. No drowsiness, tiredness, sleepiness, or sedation. He did have an episode of a rash in his bilateral hands when he first started taking Lyrica, but that was likely coincidental as that has completely resolved. Grey Apodaca MD [facility], [place] [facility] 02/10/2025 11:33:14
== END 2025-07-14 12:22 | disposition home or self-care (01) ==
PROVIDERS: PCP Internal Medicine; Visit Provider Orthopaedic Surgery
DX: M75.42 Impingement syndrome of left shoulder (principal); M25.811 Other specified joint disorders, right shoulder; M25.511 Pain in right shoulder; M25.512 Pain in left shoulder
CPT/HCPCS: 20610; 99213

== ENCOUNTER → 2025-07-14 11:34 | Outpatient (BNVA) | payer MEDICARE, SELFPAY | PROVIDERS: PCP Internal Medicine; Visit Provider Orthopaedic Surgery | DX: M75.42 Impingement syndrome of left shoulder (principal); M75.41 Impingement syndrome of right shoulder | CPT/HCPCS: 20610; 99212; J1010; J2003 ==